=== PATIENT | female | born 1940 | race Caucasian/White ===

== ENCOUNTER 2016-05-28 14:33 | Inpatient (IN) | payer MEDICARE, BC ==
[2016-05-28] MEDS ORDERED: IPRATROPIUM-ALBUTEROL 3 ML NEB INHALATION STA (15:41)
--- NOTE | 2016-05-28 15:49 | ED ---
General Adult HPI - General Chief complaint: Shortness of Breath Stated complaint: SOB Time Seen by Provider: 05/28/16 15:40 Source: patient, RN notes reviewed, old records reviewed Mode of arrival: ambulatory Limitations: no limitations - History of Present Illness Initial comments: This is a 75-year-old female who ER for evaluation. This patient presents here for evaluation of shortness of breath cough congestion and weakness. Patient does have heart history as well as breathing issues. Patient's recent layoff travel history with prolonged flight, patient was seen by Dr. Blankenship and prescribed antibiotics and breathing treatments as well as started no help. - Related Data Home Medications Medication Instructions Recorded Confirmed Ergocalciferol [Vitamin D2] 50,000 unit PO Q14D 10/23/14 05/28/16 Levothyroxine Sodium [Synthroid] 50 mcg PO DAILY 10/23/14 05/28/16 Lisinopril-Hctz 10-12.5 mg 1 tab PO BID 10/23/14 05/28/16 [Zestoretic 10-12.5] Pioglitazone [Actos] 45 mg PO DAILY 10/23/14 05/28/16 Rosuvastatin [Crestor] 5 mg PO DAILY 10/23/14 05/28/16 ALPRAZolam [Xanax] 0.25 mg PO HS PRN 12/23/15 05/28/16 Albuterol Nebulized [Ventolin 2.5 mg INHALATION RT-Q6H PRN 12/23/15 05/28/16 Nebulized] Aspirin 81 mg PO DAILY 12/23/15 05/28/16 Budesonide [Pulmicort] 0.5 mg INHALATION RT-BID PRN 12/23/15 05/28/16 D-[place] 500 mg PO DAILY 12/23/15 05/28/16 Multivitamins, Thera [Multivitamin] 1 tab PO DAILY 12/23/15 05/28/16 Vitamin B Complex 1 cap PO DAILY 12/23/15 05/28/16 Furosemide [Lasix] 20 mg PO DAILY 05/28/16 05/28/16 Gabapentin [Neurontin] 300 mg PO HS 05/28/16 05/28/16 Sulfamethoxazole/Trimethoprim 1 each PO 05/28/16 05/28/16 [Bactrim DS 800-160 mg] predniSONE 20 mg PO DAILY 05/28/16 05/28/16 traMADol HCL [Ultram] 50 mg PO Q6HR PRN 05/28/16 05/28/16 Allergies Allergy/AdvReac Type Severity Reaction Status Date / Time Iodinated Contrast Media - Allergy Unknown Verified 05/28/16 15:54 Oral and Review of Systems ROS Statement: Those systems with pertinent positive or pertinent negative responses have been documented in the HPI. ROS Other: All systems not noted in ROS Statement are negative. Past Medical History Past Medical History: Cancer, COPD, Diabetes Mellitus, Eye Disorder, Hyperlipidemia, Hypertension, Pneumonia, Renal Disease, Sleep Apnea/CPAP/BIPAP, Thyroid Disorder Additional Past Medical History / Comment(s): has "leaky valve" hx breast cancer 1999, hx. glaucoma, History of Any Multi-Drug Resistant Organisms: None Reported Past Surgical History: Breast Surgery, Orthopedic Surgery Additional Past Surgical History / Comment(s): MASTECTOMY/TRANSFLAP/CHEMO, EYE SURGERY, ROTATOR CUFF Past Psychological History: No Psychological Hx Reported Smoking Status: Former smoker Past Alcohol Use History: None Reported Past Drug Use History: None Reported - Past Family History Mother Family Medical History: Coronary Artery Disease (CAD), Diabetes Mellitus Brother(s) Family Medical History: Cancer, Coronary Artery Disease (CAD) General Exam Limitations: no limitations General appearance: alert, in no apparent distress Head exam: Present: atraumatic, normocephalic, normal inspection Eye exam: Present: normal appearance, PERRL, EOMI. Absent: scleral icterus, conjunctival injection, periorbital swelling ENT exam: Present: normal exam, mucous membranes moist Neck exam: Present: normal inspection. Absent: tenderness, meningismus, lymphadenopathy Respiratory exam: Present: normal lung sounds bilaterally. Absent: respiratory distress, wheezes, rales, rhonchi, stridor Cardiovascular Exam: Present: regular rate, normal rhythm, normal heart sounds. Absent: systolic murmur, diastolic murmur, rubs, gallop, clicks GI/Abdominal exam: Present: soft, normal bowel sounds. Absent: distended, tenderness, guarding, rebound, rigid Extremities exam: Present: normal inspection, full ROM, normal capillary refill. Absent: tenderness, pedal edema, joint swelling, calf tenderness Back exam: Present: normal inspection Neurological exam: Present: alert, oriented X3, CN II-XII intact Psychiatric exam: Present: normal affect, normal mood Skin exam: Present: warm, dry, intact, normal color. Absent: rash Course Vital Signs 05/28/16 05/28/16 05/28/16 14:54 16:12 16:33 Temperature 98.5 F Pulse Rate 59 L 66 78 Respiratory 20 Rate Blood Pressure 147/67 O2 Sat by Pulse 97 Oximetry 05/28/16 17:44 Temperature Pulse Rate 69 Respiratory 18 Rate Blood Pressure 134/53 O2 Sat by Pulse 99 Oximetry EKG Findings - EKG Comments: EKG Findings:: EKG shows normal sinus rhythm is 69, IA 144, QRS 84, QTC 480 Medical Decision Making - Medical Decision Making 75. Female to the ER for evaluation of COPD exacerbation, patient is outpatient treatment which has failed. Current travel history. Include strep to [place], her illness started there. No known fevers, no other specific sick contacts and no recent hospitalizations - Lab Data Result diagrams: 05/28/16 17:04 05/28/16 17:04 - Radiology Data Radiology results: report reviewed (Chest x-ray), image reviewed Disposition Clinical Impression: Acute exacerbation of chronic obstructive airways disease, Failure of outpatient treatment Disposition: ADMITTED IP TO THIS HOSP Condition: Fair
[2016-05-28] MEDS ORDERED: methylPREDNISolone SOD SUCCI 125 MG/2 ML VIAL IV STA (16:57)
[2016-05-28] MEDS ORDERED: AZITHROMYCIN 500 MG in SODIUM CHLORIDE 0.9% 250 ML IVPB STA (16:58)
[2016-05-28 17:18] LABS: Basophils % (A) 0 %; CH 32.1; CHCM 32.2; Eosinophils % (A) 1 %; HCT 34.1 % (34.0-46.0); HGB 10.9 gm/dL (11.4-16.0); Luc # (Auto) 0.08; Luc % (Auto) 2; Lymphocytes # (A) 0.9 k/uL (1.0-4.8); Lymphocytes % (A) 18 %; MCH 32.1 pg (25.0-35.0); MCV 100.2 fL (80.0-100.0); Mean Platelet Volume 9.5; Monocytes # (A) 0.2 k/uL (0-1.0); Monocytes % (A) 3 %; Neutrophils # (A) 3.7 k/uL (1.3-7.7); Neutrophils % (A) 77 %; RDW 13.4 % (11.5-15.5); WBC 4.9 k/uL (3.8-10.6); WBC (Perox) 5.15
[2016-05-28 17:31] LABS: Partial Thromboplastin Time 22.6 sec (22.0-30.0); Prothrombin Time 10.3 sec (9.0-12.0)
[2016-05-28 17:35] LABS: Calcium 9.5 mg/dL (8.4-10.2); Magnesium 1.9 mg/dL (1.6-2.3); Potassium 4.4 mmol/L (3.5-5.1); Total Bilirubin 0.4 mg/dL (0.2-1.3); Total Protein 6.2 g/dL (6.3-8.2)
[2016-05-28 17:38] LABS: Creatine Kinase 80 U/L (30-135)
[2016-05-28] MEDS: SODIUM CHLORIDE 0.9% 1,000 ML IV STA ×2 (17:42→20:56)
[2016-05-28 17:51] LABS: Creatine Kinase MB 0.6 ng/mL (0.0-2.4); Troponin I <0.012 ng/mL (0.000-0.034)
--- NOTE | 2016-05-28 18:23 | XR ---
EXAMINATION TYPE: XR chest 2V DATE OF EXAM: 05/28/2016 6:07 PM COMPARISON: December 11, 2014 HISTORY: Cough and congestion with dyspnea TECHNIQUE: Frontal and lateral views of the chest are obtained. FINDINGS: There is no definite focal air space opacity. There is no pleural effusion or pneumothorax . The cardiac silhouette size is mildly enlarged. The osseous structures are intact. IMPRESSION: No definite acute process.
[2016-05-28 20:50] LABS: Glucose,Whole Blood 199 mg/dL (75-99)
[2016-05-28] MEDS: methylPREDNISolone SOD SUCCI 125 MG/2 ML VIAL IV SCH (20:54)
[2016-05-28] MEDS: INSULIN LISPRO (humaLOG) 300 UNIT/3 ML VIAL SQ SCH (20:57)
[2016-05-28] MEDS: SODIUM CHLORIDE 0.9% 1,000 ML IV SCH (21:00)
[2016-05-28] MEDS: IPRATROPIUM-ALBUTEROL 3 ML NEB INHALATION SCH (21:43)
--- NOTE | 2016-05-28 22:02 | US ---
EXAMINATION TYPE: US VENOUS DOPPLER DUPLEX LE BI DATE OF EXAM: 05/28/2016 6:01 PM COMPARISON: No previous CLINICAL HISTORY: dvt. Occasional bilateral leg pain SIDE PERFORMED: Bilateral VESSELS IMAGED: External Iliac Vein (EIV) Common Femoral Vein Deep Femoral Vein Greater Saphenous Vein * Femoral Vein Popliteal Vein Small Saphenous Vein * Proximal Calf Veins (* superficial vessels) IMPRESSION: RIGHT LOWER EXTREMITY: NEGATIVE FOR DVT. LEFT LOWER EXTREMITY: NEGATIVE FOR DVT.
[2016-05-28] MEDS: ALPRAZolam 0.25 MG TAB PO PRN (22:23)
[2016-05-28] MEDS: GABAPENTIN 300 MG CAP PO SCH (22:24)
[2016-05-28] MEDS: LISINOPRIL-HCTZ 10-12.5 MG 1 EACH TAB PO SCH (22:24)
[2016-05-29] MEDS: methylPREDNISolone SOD SUCCI 125 MG/2 ML VIAL IV SCH ×4 (01:17→17:46)
[2016-05-29] MEDS: LEVOTHYROXINE 50 MCG TAB PO SCH (06:01)
[2016-05-29] MEDS: SODIUM CHLORIDE 0.9% 1,000 ML IV SCH ×2 (06:06→13:03)
[2016-05-29 07:49] LABS: Glucose,Whole Blood 168 mg/dL (75-99)
[2016-05-29] MEDS: INSULIN LISPRO (humaLOG) 300 UNIT/3 ML VIAL SQ SCH ×4 (08:08→21:03)
[2016-05-29] MEDS: LISINOPRIL-HCTZ 10-12.5 MG 1 EACH TAB PO SCH ×2 (08:08→21:10)
[2016-05-29] MEDS: AZITHROMYCIN 500 MG in SODIUM CHLORIDE 0.9% 250 ML IVPB SCH (08:09)
[2016-05-29] MEDS: ATORVASTATIN 10 MG TAB PO SCH (08:09)
[2016-05-29] MEDS: FUROSEMIDE 20 MG TAB PO SCH (08:09)
[2016-05-29] MEDS: PIOGLITAZONE 45 MG TAB PO SCH (08:09)
[2016-05-29] MEDS: ASPIRIN 81 MG CHEW PO SCH (08:09)
[2016-05-29] MEDS: IPRATROPIUM-ALBUTEROL 3 ML NEB INHALATION SCH ×4 (08:24→19:18)
[2016-05-29] MEDS ORDERED: D MANNOSE 500 MG PO SCH (09:00)
[2016-05-29] MEDS ORDERED: ENOXAPARIN 40 MG/0.4 ML SYRINGE SQ SCH (09:00)
[2016-05-29 11:50] LABS: Glucose,Whole Blood 143 mg/dL (75-99)
[2016-05-29] MEDS: MULTIVITAMINS, THERA 1 EACH TAB PO SCH (12:16)
[2016-05-29] MEDS: ACETAMINOPHEN TAB 325 MG TAB PO PRN ×2 (12:58→20:59)
--- NOTE | 2016-05-29 15:14 | CONS ---
DATE OF CONSULTATION: Elayne Raza is a 75-year-old female who presented to the ER at [facility] with increasing shortness of breath. She has been doing well up until a week ago when she was down in [place]. She developed a cough with congestion and wheezing. She also had weakness. She had no clear fever or chills and is bringing up yellow phlegm. She did not have any chest pain except when she coughed. She had a flight coming back with one stop and did not have any change in her shortness of breath during the flight. She subsequently came back to [place] and continued to get worse. She did not improve with treatment as an outpatient. She subsequently came into the ER. Her past medical history is positive for COPD, diabetes mellitus, hyperlipidemia, breast cancer, history of a leaky valve, history of sleep apnea for which she is on CPAP, history of renal disease, pneumonia, thyroid disorder, glaucoma, mastectomy, chemotherapy, eye surgery and rotator cuff surgery. FAMILY HISTORY: Positive for coronary artery disease, and diabetes mellitus in her mother. Brother had a history of cancer and coronary artery disease. Medications prior to admission were: 1. Ergocalciferol. 2. Vitamin B complex. 3. Multivitamin. 4. Aspirin. 5. ( ). 6. Pulmicort. 7. Albuterol. 8. Xanax. 9. Ultram. 10. Lasix. 11. Actos. 12. Lisinopril. 13. Montelukast. 14. Gabapentin. 15. Rosuvastatin. 16. Synthroid. 17. Prednisone. 18. She is also on Bactrim. 19. I do not believe she had actually started on Pulmicort. She had only been on albuterol. SHE IS ALLERGIC TO IODINATED CONTRAST MEDIA. On physical examination, heart rate is 52, respiratory rate 20, pulse rate 84, temperature 97.5, blood pressure 142/65, O2 sat on room air is 95%. HEENT reveals pupils are equal. Chest reveals prolonged expiration, bilateral expiratory wheeze. Cardiovascular system reveals S1 and S2. ABDOMEN: Soft. There is trace pedal edema. White count is 4.9, hemoglobin 10.9, MCV 100.2, d-dimer 1.34. Sodium 140, potassium 4.4, chloride 107, bicarb 22, BUN 38, creatinine of 1.3, glucose of 163, total protein of 6.0. Albumin of 3.9. Venous duplex study done on 05/28/2016 showed there was negative for DVT in both lower extremities. Chest x-ray showed no definitive acute process. IMPRESSION: Severe asthma with acute exacerbation, cannot rule out secondary bacterial infection. At this point in time, keep the patient on a azithromycin, IV steroids. Continue bronchodilators. Add aerosolized steroids and Montelukast to her regimen. Continue her on insulin sliding scale as well as lactulose. Increase her activity level. Check peak flows on her. Depending on how she does we shall make further changes to her care. I would like to thank you for allowing me to participate in her care.
[2016-05-29 17:04] LABS: Glucose,Whole Blood 179 mg/dL (75-99)
[2016-05-29] MEDS: BENZOCAINE/MENTHOL LOZENG 1 EACH LOZENGE MUCOUS MEM PRN ×2 (17:44→21:04)
[2016-05-29] MEDS: BUDESONIDE 0.5 MG/2 ML NEBU INHALATION SCH (19:18)
[2016-05-29 20:50] LABS: Glucose,Whole Blood 219 mg/dL (75-99)
[2016-05-29] MEDS: ALPRAZolam 0.25 MG TAB PO PRN (21:00)
[2016-05-29] MEDS: GABAPENTIN 300 MG CAP PO SCH (21:01)
[2016-05-29] MEDS: HEPARIN SODIUM,PORCINE 5,000 UNIT/ML 1 ML VIAL SQ SCH (21:07)
--- NOTE | 2016-05-29 21:09 | HP ---
DATE OF ADMISSION: Difficulty in breathing. HISTORY OF PRESENT ILLNESS: Ms. Raza is a 75-year-old female with past medical history of COPD, diabetes mellitus, hyperlipidemia, breast cancer, sleep apnea, thyroid disorder coming to the hospital with a chief complaint of difficulty in breathing. Patient states that she has been having cough for the past couple of weeks and also that she could hear herself wheezing. Patient complaints of cough, has been trying to cough up, but not able to bring up a lot of sputum and she could hear herself wheezing and also was having difficulty on taking a flight of stairs. Patient had a recent travel to [place], but she did not have any changes in her shortness of breath during her flight. Patient did see a physician and was started on treatment, but did not show improvement and so she came into the ER for further evaluation. REVIEW OF SYSTEMS: CONSTITUTIONAL: Denies any fever, chills or rigors. RESPIRATORY: As per HPI. CARDIAC: No chest pain or palpitations. GI: No abdominal pain, nausea, vomiting or diarrhea. : No dysuria or hematuria. ENDOCRINE: Positive for diabetes mellitus, hyperlipidemia. DERMATOLOGICAL: Negative. PSYCHIATRIC: Negative. HEMATOLOGIC: Negative. All 13 review of systems are done and are negative except for ones mentioned in the HPI. PAST MEDICAL HISTORY: Significant for COPD, diabetes mellitus, hyperlipidemia, history of breast cancer, status post mastectomy and chemotherapy and sleep apnea on CPAP machine and thyroid disorder. ALLERGIES TO IODINE, ORAL AND IV. Patient's home medications: 1. Lisinopril/hydrochlorothiazide 10/12.5, 1 tablet p.o. b.i.d. 2. Levothyroxine 50 mcg p.o. daily. 3. Vitamin D2 50,000 units p.o. daily. 4. Crestor 10 mg 1/2 tablet p.o. daily. 5. ( ) mg p.o. daily. 6. Multivitamin 1 tablet p.o. daily. 7. Aspirin 81 mg p.o. daily. 8. Pulmicort b.i.d. 9. Albuterol p.r.n. 10. Xanax 0.25 mg p.o. q.h.s. p.r.n. 11. Vitamin B complex. 12. ( ) 20 mg p.o. daily. 13. Bactrim. 14. Lasix 20 mg p.o. daily. 15. Gabapentin 300 mg p.o. q.h.s. 16. Tramadol 50 mg p.o. every 6 hours. PAST SURGICAL HISTORY: Mastectomy and orthopedic surgery. SOCIAL HISTORY: He smoked for about 5 to 6 years. Occasional alcohol use. FAMILY HISTORY: Positive for coronary artery disease, diabetes mellitus. On examination, patient's vital signs: Temperature 97.4, heart rate 57, respiratory rate 20, blood pressure 117/54, saturating at 97% on room air. GENERAL: Patient appears to be no acute distress. HEAD: Atraumatic, nontraumatic. EYES: Pupils round and reactive to light. No pallor. No icterus. NECK: No JVD. No thyromegaly. LUNGS: Bilateral wheezes positive. No rhonchi. No crackles. CARDIOVASCULAR: S1, S2 heard. GI: Abdomen soft, nontender. Bowel sounds positive. EXTREMITIES: No edema. No cyanosis. No clubbing. Peripheral pulses felt. CHEF HEAD: Alert, awake and oriented x3. No focal deficits. PSYCHIATRIC: Appropriate mood and affect. SKIN: No rash. MUSCULOSKELETAL: No joint swelling or deformity. PATIENT LABS: White count of 4.9, hemoglobin 10.9, platelets 135. Sodium 140, potassium 4.4, chloride 107, bicarb 22, BUN 38, creatinine 1.30. HbA1c of 6. ASSESSMENT AND PLAN: 1. Acute exacerbation of chronic obstructive pulmonary disease, failed outpatient treatment. Continue with steroid breathing treatments and azithromycin. 2. History of diabetes mellitus, Hemoglobin A1c of 7. 3. Dyslipidemia. 4. Hypertension. 5. Osteoarthritis. 6. History of breast cancer, status post mastectomy and chemotherapy. 7. Gastroesophageal reflux disease. 8. History of diverticulosis. 9. History of sleep apnea. No continuous positive airway pressure machine. 10. Hypothyroidism. PLAN: Plan is to continue with the current medication regimen as above and resume her home medications and further recommendations to follow depending on the progress of the patient.
[2016-05-29] MEDS: MONTELUKAST 10 MG TAB PO SCH (21:59)
[2016-05-30] MEDS: methylPREDNISolone SOD SUCCI 125 MG/2 ML VIAL IV SCH ×4 (00:25→18:43)
[2016-05-30] MEDS: HYDROcodone/APAP 10-325MG 1 EACH TAB PO PRN ×3 (00:25→21:59)
[2016-05-30] MEDS: BENZOCAINE/MENTHOL LOZENG 1 EACH LOZENGE MUCOUS MEM PRN ×3 (00:26→22:59)
[2016-05-30] MEDS: CHLORPHEN-HYDROcod 8-10mg/5ml 5 ML ORAL.SYRG PO SCH ×2 (02:30→16:19)
[2016-05-30] MEDS: LEVOTHYROXINE 50 MCG TAB PO SCH (06:23)
[2016-05-30 07:24] LABS: Basophils % (A) 0 %; CH 32.1; CHCM 32.7; Eosinophils # (A) 0.1 k/uL (0-0.7); Eosinophils % (A) 1 %; HCT 30.6 % (34.0-46.0); HDW 2.36; HGB 9.8 gm/dL (11.4-16.0); Luc # (Auto) 0.08; Luc % (Auto) 1; Lymphocytes # (A) 0.7 k/uL (1.0-4.8); Lymphocytes % (A) 8 %; MCH 31.8 pg (25.0-35.0); MCHC 32.2 g/dL (31.0-37.0); Mean Platelet Volume 8.7; Monocytes # (A) 0.4 k/uL (0-1.0); Monocytes % (A) 5 %; Neutrophils # (A) 7.7 k/uL (1.3-7.7); Neutrophils % (A) 85 %; RBC 3.09 m/uL (3.80-5.40); RDW 13.6 % (11.5-15.5); WBC (Perox) 10.08
[2016-05-30] MEDS: IPRATROPIUM-ALBUTEROL 3 ML NEB INHALATION SCH ×4 (07:37→19:40)
[2016-05-30] MEDS: BUDESONIDE 0.5 MG/2 ML NEBU INHALATION SCH ×2 (07:38→19:40)
[2016-05-30 07:39] LABS: Glucose,Whole Blood 190 mg/dL (75-99)
[2016-05-30] MEDS: INSULIN LISPRO (humaLOG) 300 UNIT/3 ML VIAL SQ SCH ×4 (08:07→20:04)
[2016-05-30] MEDS: HEPARIN SODIUM,PORCINE 5,000 UNIT/ML 1 ML VIAL SQ SCH ×2 (08:07→20:02)
[2016-05-30] MEDS: ASPIRIN 81 MG CHEW PO SCH (08:08)
[2016-05-30] MEDS: LISINOPRIL-HCTZ 10-12.5 MG 1 EACH TAB PO SCH ×2 (08:08→20:02)
[2016-05-30] MEDS: FUROSEMIDE 20 MG TAB PO SCH (08:08)
[2016-05-30] MEDS: ATORVASTATIN 10 MG TAB PO SCH (08:09)
[2016-05-30] MEDS: PIOGLITAZONE 45 MG TAB PO SCH (08:09)
[2016-05-30] MEDS: AZITHROMYCIN 500 MG in SODIUM CHLORIDE 0.9% 250 ML IVPB SCH (08:12)
[2016-05-30 08:25] LABS: Potassium 5.2 mmol/L (3.5-5.1)
[2016-05-30] MEDS: SODIUM CHLORIDE 0.9% 1,000 ML IV SCH ×3 (10:27→20:52)
[2016-05-30 12:14] LABS: Glucose,Whole Blood 256 mg/dL (75-99)
[2016-05-30] MEDS: MULTIVITAMINS, THERA 1 EACH TAB PO SCH (13:39)
[2016-05-30 17:22] LABS: Glucose,Whole Blood 86 mg/dL (75-99)
--- NOTE | 2016-05-30 19:20 | XR ---
EXAMINATION TYPE: XR chest 2V DATE OF EXAM: 05/30/2016 6:53 PM COMPARISON: 05/28/2016 HISTORY: 75-year-old female increasing shortness of breath and cough TECHNIQUE: Frontal and lateral views FINDINGS: Heart is borderline enlarged. Mild elongation of the thoracic aorta. Diffuse interstitial prominence similar to prior exam. There is mild hyperinflation. No consolidation or pleural effusion seen. Surgi isha clips at the left axilla. IMPRESSION: Borderline heart size and diffuse interstitial prominence similar to prior. Correlate for mild CHF, c hronic bronchitis, or atypical pneumonias.
--- NOTE | 2016-05-30 19:54 | NM ---
EXAMINATION TYPE: NM pul vent and perfuse DATE OF EXAM: 05/30/2016 7:47 PM COMPARISON: Correlation chest radiograph same day HISTORY: 75-year-old female increasing shortness of breath TECHNIQUE: Utilizing inhalation of 65.8 mCi Tc 99m DTPA aerosol and intravenous injection of 5.3 mCi of Tc 99m MAA, ventilation and perfusion images are acquired post injection in multiple projections. FINDINGS: There is no mismatched perfusion defect. No isolated ventilation defect. IMPRESSION: Very low probability for pulmonary embolus.
[2016-05-30] MEDS: MONTELUKAST 10 MG TAB PO SCH (20:02)
[2016-05-30] MEDS: GABAPENTIN 300 MG CAP PO SCH (20:02)
[2016-05-30] MEDS: POLYETHYLENE GLYCOL 3350 17 GM POWD.PACK PO SCH (20:12)
[2016-05-30 20:24] LABS: Glucose,Whole Blood 138 mg/dL (75-99)
[2016-05-30] MEDS ORDERED: PSYLLIUM HUSK 100% 6 GM PACKET PO SCH (21:00)
[2016-05-30] MEDS: PROMETHAZ-COD 6.25-10 MG/5 ML 5 ML CUP PO PRN (21:29)
[2016-05-30] MEDS: ALPRAZolam 0.25 MG TAB PO PRN (21:59)
[2016-05-30] MEDS ORDERED: LEVOFLOXACIN 500MG-D5W PMX 500 MG in DEXTROSE/WATER 1 100ML.BAG IVPB SCH (23:00)
[2016-05-31] MEDS: methylPREDNISolone SOD SUCCI 125 MG/2 ML VIAL IV SCH ×5 (00:13→23:20)
[2016-05-31] MEDS: CHLORPHEN-HYDROcod 8-10mg/5ml 5 ML ORAL.SYRG PO SCH ×2 (02:01→15:09)
[2016-05-31] MEDS: LEVOTHYROXINE 50 MCG TAB PO SCH (06:02)
[2016-05-31] MEDS: HYDROcodone/APAP 10-325MG 1 EACH TAB PO PRN ×3 (06:02→17:48)
[2016-05-31 06:56] LABS: Glucose,Whole Blood 173 mg/dL (75-99)
[2016-05-31 07:01] LABS: Basophils % (A) 0 %; CHCM 31.8; Eosinophils % (A) 0 %; HCT 31.6 % (34.0-46.0); HDW 2.41; HGB 9.8 gm/dL (11.4-16.0); Luc % (Auto) 1; Lymphocytes # (A) 0.7 k/uL (1.0-4.8); Lymphocytes % (A) 7 %; MCH 31.2 pg (25.0-35.0); MCHC 30.9 g/dL (31.0-37.0); MCV 101.2 fL (80.0-100.0); Macrocytosis Slight; Mean Platelet Volume 8.6; Monocytes # (A) 0.3 k/uL (0-1.0); Monocytes % (A) 3 %; Neutrophils % (A) 88 %; RBC 3.13 m/uL (3.80-5.40); RDW 13.4 % (11.5-15.5); WBC (Perox) 9.61
[2016-05-31 07:32] LABS: Calcium 8.9 mg/dL (8.4-10.2); Potassium 5.1 mmol/L (3.5-5.1)
[2016-05-31] MEDS: IPRATROPIUM-ALBUTEROL 3 ML NEB INHALATION SCH ×4 (07:54→19:39)
[2016-05-31] MEDS: BUDESONIDE 0.5 MG/2 ML NEBU INHALATION SCH ×2 (07:54→19:39)
[2016-05-31] MEDS: INSULIN LISPRO (humaLOG) 300 UNIT/3 ML VIAL SQ SCH ×4 (07:57→21:13)
[2016-05-31] MEDS: ASPIRIN 81 MG CHEW PO SCH (07:59)
[2016-05-31] MEDS: HEPARIN SODIUM,PORCINE 5,000 UNIT/ML 1 ML VIAL SQ SCH ×3 (08:00→23:21)
[2016-05-31] MEDS: FUROSEMIDE 20 MG TAB PO SCH (08:00)
[2016-05-31] MEDS: ATORVASTATIN 10 MG TAB PO SCH (08:00)
[2016-05-31] MEDS: PIOGLITAZONE 45 MG TAB PO SCH (08:00)
[2016-05-31] MEDS: LISINOPRIL-HCTZ 10-12.5 MG 1 EACH TAB PO SCH ×2 (08:00→21:14)
[2016-05-31] MEDS: BENZOCAINE/MENTHOL LOZENG 1 EACH LOZENGE MUCOUS MEM PRN ×4 (08:06→23:51)
--- NOTE | 2016-05-31 10:23 | PN ---
DATE OF SERVICE: 05/30/2016 She has been coughing. She is, however, less short of breath. On physical examination, respiratory rate 16, pulse rate of 63, temperature 96.9, blood pressure 119/55, O2 sat on room air is 96%. HEENT is unremarkable. Chest reveals expiratory wheeze only on forced expiration. Cardiovascular system reveals an S1, S2. Abdomen is soft. There is trace edema. Sodium is 138, potassium 5.2, chloride 108, bicarb 29, BUN 45, creatinine 1.35, white count 9, hemoglobin 9.8. IMPRESSION: 1. Severe asthma with acute exacerbation. 2. Obesity. 3. Obstructive sleep apnea. Continue CPAP. Continue bronchodilators, aerosolized steroids, IV steroids and antibiotics. Increase her activity level.
[2016-05-31 12:09] LABS: Glucose,Whole Blood 213 mg/dL (75-99)
--- NOTE | 2016-05-31 12:13 | P.PN ---
Subjective Principal diagnosis: Acute exacerbation of asthma Patient seen and examined. Patient states that she does not feel like her breathing is getting any better. She continues to have a dry nonproductive cough. She is complaining of pain all over. She has not had any fevers or chills. Objective - Vital Signs Vital signs: Vital Signs Temp 97.4 F L 05/31/16 07:00 Pulse 68 05/31/16 11:46 Resp 16 05/31/16 08:00 BP 158/72 05/31/16 07:00 Pulse Ox 95 05/31/16 07:55 Intake & Output 05/30/16 05/31/16 05/31/16 18:59 06:59 18:59 Intake Total 1560 Balance 1560 Intake: IV 280 Sodium Chloride 0.9% 1, 280 000 ml @ 100 mls/hr IV . Q10H ART Rx#:[id number] Intake, IV Titration 100 Amount Levofloxacin 500Mg-D5w 100 Pmx 500 mg In Dextrose/ Water 1 100ml.bag @ 100 mls/hr IVPB HS ART Rx#: [id number] Oral 1180 Other: Voiding Method Toilet Toilet Toilet # Voids 2 1 - Exam Gen.: Patient is alert and oriented 3, no acute distress Cardiovascular: Regular rate and rhythm, S1/S2 Lungs: Coarse breath sounds bilaterally Abdomen: Soft nontender nondistended positive bowel sounds Extremities: No edema - Labs CBC & Chem 7: 05/31/16 06:30 05/31/16 06:30 Labs: Abnormal Lab Results - Last 24 Hours (Table) 05/30/16 05/30/16 05/31/16 Range/Units 12:09 20:04 06:30 RBC 3.13 L (3.80-5.40) m/uL Hgb 9.8 L (11.4-16.0) gm/dL Hct 31.6 L (34.0-46.0) % MCV 101.2 H (80.0-100.0) fL MCHC 30.9 L (31.0-37.0) g/dL Plt Count 144 L (150-450) k/uL Neutrophils # 8.0 H (1.3-7.7) k/uL Lymphocytes # 0.7 L (1.0-4.8) k/uL Chloride (98-107) mmol/L Carbon Dioxide (22-30) mmol/L BUN (7-17) mg/dL Creatinine (0.52-1.04) mg/dL Glucose (74-99) mg/dL POC Glucose (mg/dL) 256 H 138 H (75-99) mg/dL 05/31/16 05/31/16 Range/Units 06:30 06:55 RBC (3.80-5.40) m/uL Hgb (11.4-16.0) gm/dL Hct (34.0-46.0) % MCV (80.0-100.0) fL MCHC (31.0-37.0) g/dL Plt Count (150-450) k/uL Neutrophils # (1.3-7.7) k/uL Lymphocytes # (1.0-4.8) k/uL Chloride 108 H (98-107) mmol/L Carbon Dioxide 21 L (22-30) mmol/L BUN 49 H (7-17) mg/dL Creatinine 1.27 H (0.52-1.04) mg/dL Glucose 176 H (74-99) mg/dL POC Glucose (mg/dL) 173 H (75-99) mg/dL Assessment and Plan Plan: Acute exacerbation of severe persistent asthma Obesity Obstructive sleep apnea compliant with CPAP Diabetes mellitus type 2 Dyslipidemia History of breast cancer Hypertension Osteoarthritis GERD O2 to maintain saturation greater than equal to 88% Bronchodilators and Pulmicort Steroid taper Monitor labs Antibiotics: Levaquin Singulair Will start Mucinex Check echocardiogram Will increase Lasix to 40 mg IV daily Repeat chest x-ray in the a.m. Check sputum culture Check influenza and atypical pneumonia Incentive spirometry and pulmonary hygiene GI and DVT prophylaxis
[2016-05-31] MEDS: MULTIVITAMINS, THERA 1 EACH TAB PO SCH (13:14)
[2016-05-31] MEDS: FUROSEMIDE 10 MG/ML 4 ML VIAL IV SCH (13:18)
--- NOTE | 2016-05-31 14:37 | PN ---
Ms. Raza is a 75-year-old female with a past medical history of chronic obstructive pulmonary disease, hyperlipidemia, breast cancer, sleep apnea, thyroid disorder admitted to the hospital with a chief complaint of difficulty in breathing. The patient has been having cough for the past couple of weeks and also has been wheezing. The patient is currently being treated for COPD exacerbation as she failed outpatient treatment. REVIEW OF SYSTEMS: CONSTITUTIONAL: She denies having any fevers, chills, or rigors. RESPIRATORY: States that her breathing has worsened. She still complains of cough. CARDIAC: No chest pain. No palpitations. GI: Denies having any abdominal pain, nausea, vomiting or diarrhea. : No dysuria or hematuria. Patient's medications have been reviewed. She is on Tylenol, [place], Duoneb, Xanax, aspirin, Lipitor, Zithromax, Pulmicort, Lasix, Gabapentin, Lisinopril, hydrochlorothiazide, heparin, Levothyroxine, Solu-Medrol, Singulair, Actos. On examination, patient's vital signs are temperature 97.4, heart rate is 67, respiratory rate 16, blood pressure 126/60, saturating at 94% on room air. GENERAL EXAMINATION: Patient appears to be in no acute distress. HEAD: Atraumatic, normocephalic. EYES: Pupils, round, and reactive to light. No pallor. No icterus. NECK: No JVD. No thyromegaly. CARDIOVASCULAR: S1, S2 heard. LUNGS: Patient has bilateral coarse breath sounds with mild wheezes. No crackles. GI: Abdomen is soft, nontender. Bowel sounds positive. EXTREMITIES: No edema. No cyanosis, no clubbing. Peripheral pulses are felt. [employer]ATE: Alert, awake and oriented times 3. No focal deficits. PSYCHIATRIC: Appropriate mood and affect. SKIN: No rash. MUSCULOSKELETAL: No joint swelling or deformity. Patient's labs: White count of 9, hemoglobin is 9.8, platelets of 142. Sodium 138, potassium 5.2, chloride 108, bicarb 21, BUN 45, creatinine is 1.35. ASSESSMENT AND PLAN: 1. Acute exacerbation of chronic obstructive pulmonary disease. Failed outpatient treatment. Continue with breathing treatments. We will change her azithromycin to levofloxacin. 2. History of diabetes mellitus, Hemoglobin A1c of 7. 3. Dyslipidemia. 4. Hypertension. 5. Osteoarthritis. 6. History of breast cancer, status post mastectomy and chemotherapy. 7. Chronic kidney disease, stage III. 8. Gastroesophageal reflux disease. 9. History of diverticulosis. 10. History of sleep apnea. 11. Hypothyroidism. PLAN: The patient's breathing has worsened overnight with breathing treatments and IV steroids so we will change the antibiotics from azithromycin to levofloxacin. Repeat x-ray shows no new changes and a VQ scan was also obtained showing low probability of PE. We will continue with the rest of her medication regimen and further recommendations to follow depending on the progress of the patient.
[2016-05-31 17:29] LABS: Glucose,Whole Blood 143 mg/dL (75-99)
[2016-05-31 20:34] LABS: Glucose,Whole Blood 240 mg/dL (75-99)
[2016-05-31] MEDS: POLYETHYLENE GLYCOL 3350 17 GM POWD.PACK PO SCH (21:13)
[2016-05-31] MEDS: MONTELUKAST 10 MG TAB PO SCH (21:14)
[2016-05-31] MEDS: guaiFENesin 600 MG TABLET.ER PO SCH (21:14)
[2016-05-31] MEDS: LEVOFLOXACIN 250 MG TAB PO SCH (21:14)
[2016-05-31] MEDS: GABAPENTIN 300 MG CAP PO SCH (21:14)
[2016-06-01] MEDS: CHLORPHEN-HYDROcod 8-10mg/5ml 5 ML ORAL.SYRG PO SCH ×2 (01:00→14:21)
[2016-06-01] MEDS: LEVOTHYROXINE 50 MCG TAB PO SCH (06:09)
[2016-06-01] MEDS: methylPREDNISolone SOD SUCCI 125 MG/2 ML VIAL IV SCH ×3 (06:09→20:22)
[2016-06-01 07:43] LABS: Glucose,Whole Blood 137 mg/dL (75-99)
[2016-06-01] MEDS: BUDESONIDE 0.5 MG/2 ML NEBU INHALATION SCH (08:20)
[2016-06-01] MEDS: IPRATROPIUM-ALBUTEROL 3 ML NEB INHALATION SCH ×4 (08:20→19:47)
--- NOTE | 2016-06-01 08:35 | PN ---
DATE OF SERVICE: 05/31/2016 INTERVAL HISTORY: Ms. Raza is a 75 with a past medical history of COPD, hypertension, and breast cancer, sleep apnea, thyroid disorder admitted o the hospital with chief complaint of difficulty in breathing. Patient was having cough for the past couple of weeks and also has been wheezing. She is currently being treated with antibiotics, IV steroids and breathing treatments. The patient is showing very slow progress. REVIEW OF SYSTEMS: CONSTITUTIONAL: She denies having fever, chills or rigors. RESPIRATORY: States that she has difficulty in breathing, still the same. CARDIAC: No chest pain or palpitation. GI: No abdominal pain, nausea, vomiting or diarrhea. : No dysuria or hematuria. Patient's medications have been reviewed. On examination, patient's vital signs: Temperature 97.4, heart rate 82, respiratory rate 17, blood pressure 158/65, saturating at 95% on room air. GENERAL EXAMINATION: Obese female sitting up in the bed, appears to be in no acute distress. HEAD: Atraumatic, normocephalic. EYES: Pupils round and reactive to light. No pallor. No icterus. NECK: No JVD. No thyromegaly. CARDIOVASCULAR: S1, S2 heard. LUNGS: Coarse breath sounds bilaterally. Wheezing seems to be improved from yesterday. No crackles. GI: Abdomen is soft, nontender. Bowel sounds positive. EXTREMITIES: No edema. No cyanosis, no clubbing. Peripheral pulses are felt. She is alert, awake, oriented x3. No focal deficits. PSYCHIATRIC: Appropriate mood and affect. SKIN: No rash. MUSCULOSKELETAL: No joint swelling or deformity. Patient's labs: White count of 9, hemoglobin 9.8, platelets of 144, sodium 139, potassium 5.1, chloride 108, bicarb 21, BUN 49, creatinine 1.27. ASSESSMENT AND PLAN: 1. Acute exacerbation of chronic obstructive pulmonary disease. Failed outpatient treatment. Continue with breathing treatments, antibiotics and IV steroids. 2. History of type 2 diabetes mellitus. Hemoglobin A1c is 7. 3. Dyslipidemia. 4. Hypertension. 5. Osteoarthritis. 6. History of breast cancer, status post mastectomy and chemotherapy. 7. Chronic kidney disease, stage II. 8. Gastroesophageal reflux disease. 9. History of diverticulosis. 10. History of sleep apnea. 11. Hypothyroidism. PLAN: The plan is to continue the medication regimen as above. Patient also had a VQ scan that was showing low probability of PE and patient showing very slow improvement in her symptoms. Pulmonary on board and following the patient. Further recommendations to follow depending on the progress of the patient.
--- NOTE | 2016-06-01 08:57 | XR ---
EXAMINATION TYPE: XR chest 2V DATE OF EXAM: 06/01/2016 7:12 AM COMPARISON: 05/30/2016 HISTORY: Shortness of breath cough congestion FINDINGS: Postoperative change overlying the left axilla. Heart is enlarged. There is a small left pleural effu dyan. Biapical pleural thickening. Arthropathy of the shoulders and degenerative change of the spine. Coarsened interstitium is stable. IMPRESSION: 1. Left basilar infiltrate and small effusion 2. Correlate for chronic interstitial lung disease or venous congestion
--- NOTE | 2016-06-01 10:30 | ECHOF ---
Referral Reason:CHF MEASUREMENTS -------- HEIGHT: 170.2 cm WEIGHT: 110.2 kg BP: 158/72 RVIDd: 3.3 cm (< 3.3) IVSd: 1.2 cm (0.6 - 1.1) LVIDd: 4.9 cm (3.9 - 5.3) LVPWd: 1.2 cm (0.6 - 1.1) IVSs: 1.7 cm LVIDs: 3.6 cm LVPWs: 1.6 cm LA Diam: 3.7 cm (2.7 - 3.8) LAESV Index (A-L): 22.76 ml/m Ao Diam: 3.0 cm (2.0 - 3.7) AV Cusp: 2.2 cm (1.5 - 2.6) LA Diam: 3.6 cm (2.7 - 3.8) MV EXCURSION: 16.486 mm (> 18.000) MV EF SLOPE: 106 mm/s (70 - 150) EPSS: 0.8 cm MV E Mark: 1.28 m/s MV DecT: 209 ms MV A Mark: 0.96 m/s MV E/A Ratio: 1.33 RAP: 5.00 mmHg RVSP: 36.14 mmHg FINDINGS -------- Sinus rhythm. This was a technically adequate study. There is borderline concentric left ventricular hypertrophy. Overall left ventricular systolic function is normal with, an EF between 55 - 60 %. The right ventricle is normal in size. Normal LA size by volume 22+/-6 ml/m2. The right atrium is normal in size. 1.5mg of Definity was utilized for enhancement of images Aortic valve is trileaflet and is mildly thickened. Mild mitral annular calcification present. Mild mitral regurgitation is present. Mild tricuspid regurgitation present. There is mild pulmonary hypertension. The right ventricular systolic pressure, as measured by Doppler, is 36.14mmHg. The aortic root size is normal. The inferior vena cava is mildly dilated. Echo free space may represent effusion or a pericardial fat pad. CONCLUSIONS -------- 1. Sinus rhythm. 2. Mild mitral annular calcification present. 3. Mild mitral regurgitation is present. 4. Mild tricuspid regurgitation present. 5. There is mild pulmonary hypertension. 6. The right ventricular systolic pressure, as measured by Doppler, is 36.14mmHg. 7. The aortic root size is normal. 8. Echo free space may represent effusion or a pericardial fat pad. 9. This was a technically adequate study. 10. There is borderline concentric left ventricular hypertrophy. 11. Overall left ventricular systolic function is normal with, an EF between 55 - 60 %. 12. The right ventricle is normal in size. 13. Normal LA size by volume 22+/-6 ml/m2. 14. The right atrium is normal in size. 15. 1.5mg of Definity was utilized for enhancement of images 16. Aortic valve is trileaflet and is mildly thickened. ORNAMENTAL IRON WORKER: Barbara Stokes RDCS
[2016-06-01] MEDS: HEPARIN SODIUM,PORCINE 5,000 UNIT/ML 1 ML VIAL SQ SCH ×2 (10:46→18:21)
[2016-06-01] MEDS: INSULIN LISPRO (humaLOG) 300 UNIT/3 ML VIAL SQ SCH ×4 (10:46→20:22)
[2016-06-01] MEDS: ASPIRIN 81 MG CHEW PO SCH (10:48)
[2016-06-01] MEDS: FUROSEMIDE 10 MG/ML 4 ML VIAL IV SCH (10:48)
[2016-06-01] MEDS: ATORVASTATIN 10 MG TAB PO SCH (10:48)
[2016-06-01] MEDS: PIOGLITAZONE 45 MG TAB PO SCH (10:49)
[2016-06-01] MEDS: LISINOPRIL-HCTZ 10-12.5 MG 1 EACH TAB PO SCH ×2 (10:49→20:21)
[2016-06-01] MEDS: guaiFENesin 600 MG TABLET.ER PO SCH ×2 (10:49→20:21)
[2016-06-01] MEDS: BENZOCAINE/MENTHOL LOZENG 1 EACH LOZENGE MUCOUS MEM PRN (10:56)
[2016-06-01 11:03] LABS: Glucose,Whole Blood 274 mg/dL (75-99)
[2016-06-01 11:32] LABS: Potassium 4.6 mmol/L (3.5-5.1)
[2016-06-01] MEDS: MULTIVITAMINS, THERA 1 EACH TAB PO SCH (12:36)
[2016-06-01 17:14] LABS: Glucose,Whole Blood 107 mg/dL (75-99)
--- NOTE | 2016-06-01 17:19 | P.PN ---
Subjective Principal diagnosis: AE Asthma Patient seen and examined. Patient states she is not feeling much better today. She is still wheezing and coughing. She is c/o pain with cough. She does not feel ready to go home. Objective - Vital Signs Vital signs: Vital Signs Temp 97.7 F 06/01/16 14:15 Pulse 81 06/01/16 14:15 Resp 18 06/01/16 14:15 BP 113/51 06/01/16 14:15 Pulse Ox 92 L 06/01/16 14:15 Intake & Output 05/31/16 06/01/16 06/01/16 18:59 06:59 18:59 Intake Total 240 1260 Balance 240 1260 Intake: Oral 240 1260 Other: Voiding Method Toilet Toilet # Voids 2 3 2 - Exam Gen.: Patient is alert and oriented 3, no acute distress Cardiovascular: Regular rate and rhythm, S1/S2 Lungs: Coarse breath sounds bilaterally Abdomen: Soft nontender nondistended positive bowel sounds Extremities: No edema - Labs CBC & Chem 7: 05/31/16 06:30 06/01/16 10:53 Labs: Abnormal Lab Results - Last 24 Hours (Table) 05/31/16 05/31/16 06/01/16 Range/Units 17:27 20:14 07:42 BUN (7-17) mg/dL Creatinine (0.52-1.04) mg/dL Glucose (74-99) mg/dL POC Glucose (mg/dL) 143 H 240 H 137 H (75-99) mg/dL 06/01/16 06/01/16 06/01/16 Range/Units 10:53 11:01 17:10 BUN 52 H (7-17) mg/dL Creatinine 1.36 H (0.52-1.04) mg/dL Glucose 249 H (74-99) mg/dL POC Glucose (mg/dL) 274 H 107 H (75-99) mg/dL Assessment and Plan Plan: Acute exacerbation of severe persistent asthma Obesity Obstructive sleep apnea compliant with CPAP Diabetes mellitus type 2 Dyslipidemia History of breast cancer Hypertension Osteoarthritis GERD O2 to maintain saturation greater than equal to 88% Bronchodilators and Pulmicort, will increase dose for now Steroid taper Monitor labs Antibiotics: Levaquin Singulair Continue Mucinex Will increase Lasix to 40 mg IV daily Repeat chest x-ray in the a.m. Check sputum culture if able to expectorate Influenza negative, and atypical pneumonia pending Incentive spirometry and pulmonary hygiene GI and DVT prophylaxis
[2016-06-01] MEDS: PROMETHAZ-COD 6.25-10 MG/5 ML 5 ML CUP PO PRN ×2 (18:23→22:46)
--- NOTE | 2016-06-01 18:30 | PN ---
Patient is a 75-year-old with history of COPD, admitted with COPD exacerbation, although I believe Pulmonary believes patient has asthma exacerbation. Patient is being evaluated for atypical pneumonia. Patient is complaining of severe cough; otherwise her respiratory status is okay. Patient was given a dose of Lasix. I have the results of her echocardiogram which show normal ejection fraction. Patient is on lisinopril. Her potassium was borderline yesterday, because of which I will repeat basic metabolic profile today again to make sure her potassium is not going up. Patient definitely has elevated blood pressure. Patient most probably will need therapeutic bronchoscopy. Flu testing is negative. Her main symptom appears to be uncontrollable cough, as per the patient. REVIEW OF SYSTEMS: CARDIOVASCULAR: No chest pain, no orthopnea, no PND, no palpitations. PULMONARY: As mentioned above. GASTROINTESTINAL: No diarrhea, nausea or vomiting. No abdominal pain. Normoactive bowel sounds. NEUROLOGIC: No headaches, no weakness, no numbness. Medications were reviewed. PHYSICAL EXAMINATION: VITAL SIGNS: Temperature 97.5, pulse of 68, respiratory rate of 18. Blood pressure is 186/81. Saturating at 90% on room air. GENERAL: The patient is alert and oriented x3, not in any acute distress. Well developed, well nourished. HEENT: Pupils are round and equally reacting to light. EOMI. No scleral icterus. No conjunctival pallor. Normocephalic, atraumatic. No pharyngeal erythema. No thyromegaly. CARDIOVASCULAR: S1 and S2 present. No murmurs, rubs, or gallops. PULMONARY: Breath sounds present bilaterally. Rhonchorous breath sounds. Minimal wheeze was appreciated. ABDOMEN: Soft, nontender, nondistended, normoactive bowel sounds. No palpable organomegaly. MUSCULOSKELETAL: No joint swelling or deformity. EXTREMITIES: No cyanosis, clubbing, or pedal edema. NEUROLOGICAL: Gross neurological examination did not reveal any focal deficits. SKIN: No rashes. LABORATORY DATA: CBC, CMP are not available, but kidney function was 1.27, BUN of 49. Potassium of 5.2. I believe they are a bit worse because of the Lasix she received. Chest x-ray from yesterday was reviewed. Echocardiogram was reviewed; essentially within normal limits. Initially I ordered an echocardiogram, which will be cancelled because it was already done. Urinary legionella antigen and mycoplasma antibodies were ordered by Pulmonary, which is appropriate, evaluating for atypical pneumonia. ASSESSMENT AND PLAN: 1. Acute exacerbation of chronic obstructive pulmonary disease or asthma. Please refer to slot machine mechanic's dictation for further details. Continue with systemic steroids and antibiotics. 2. Rule out atypical pneumonia. 3. Type 2 diabetes mellitus. 4. Hypertension. 5. Dyslipidemia. 6. Osteoarthritis. 7. History of breast cancer, status post mastectomy and chemotherapy. 8. Chronic kidney disease, stage II or III. 9. Obstructive sleep apnea. 10. Hypothyroidism. Her V/Q scan shows low probability for pulmonary embolism. Plan is to continue with present medications, antibiotics, cough medications. Assess her kidney function and electrolyte levels.
[2016-06-01] MEDS: BUDESONIDE 1 MG/2 ML NEBU INHALATION SCH (19:47)
[2016-06-01 19:50] LABS: Glucose,Whole Blood 254 mg/dL (75-99)
[2016-06-01] MEDS: POLYETHYLENE GLYCOL 3350 17 GM POWD.PACK PO SCH (20:20)
[2016-06-01] MEDS: MONTELUKAST 10 MG TAB PO SCH (20:21)
[2016-06-01] MEDS: GABAPENTIN 300 MG CAP PO SCH (20:22)
[2016-06-01] MEDS: LEVOFLOXACIN 250 MG TAB PO SCH (20:22)
[2016-06-01] MEDS: ALPRAZolam 0.25 MG TAB PO PRN (20:22)
[2016-06-01] MEDS ORDERED: INSULIN GLARGINE 100 UNIT/ML 10 ML VIAL SQ SCH (21:00)
[2016-06-02] MEDS: HEPARIN SODIUM,PORCINE 5,000 UNIT/ML 1 ML VIAL SQ SCH ×3 (01:27→15:17)
[2016-06-02] MEDS: CHLORPHEN-HYDROcod 8-10mg/5ml 5 ML ORAL.SYRG PO SCH ×2 (02:13→11:42)
[2016-06-02] MEDS: LEVOTHYROXINE 50 MCG TAB PO SCH (06:43)
[2016-06-02 07:17] LABS: Glucose,Whole Blood 136 mg/dL (75-99)
[2016-06-02] MEDS: PIOGLITAZONE 45 MG TAB PO SCH (07:45)
[2016-06-02] MEDS: LISINOPRIL-HCTZ 10-12.5 MG 1 EACH TAB PO SCH ×2 (07:45→21:21)
[2016-06-02] MEDS: guaiFENesin 600 MG TABLET.ER PO SCH ×2 (07:46→19:35)
[2016-06-02] MEDS: ACETAMINOPHEN TAB 325 MG TAB PO PRN (07:46)
[2016-06-02] MEDS: ASPIRIN 81 MG CHEW PO SCH (07:46)
[2016-06-02] MEDS: ATORVASTATIN 10 MG TAB PO SCH (07:46)
[2016-06-02] MEDS: FUROSEMIDE 10 MG/ML 4 ML VIAL IV SCH ×2 (07:47→19:35)
[2016-06-02] MEDS: methylPREDNISolone SOD SUCCI 125 MG/2 ML VIAL IV SCH ×2 (07:47→19:36)
[2016-06-02] MEDS: IPRATROPIUM-ALBUTEROL 3 ML NEB INHALATION SCH ×4 (08:10→20:23)
[2016-06-02] MEDS: BUDESONIDE 1 MG/2 ML NEBU INHALATION SCH ×2 (08:10→20:23)
[2016-06-02] MEDS: INSULIN LISPRO (humaLOG) 300 UNIT/3 ML VIAL SQ SCH ×4 (08:24→21:20)
[2016-06-02 09:27] LABS: Calcium 9.4 mg/dL (8.4-10.2); Potassium 4.7 mmol/L (3.5-5.1)
[2016-06-02 11:24] LABS: Glucose,Whole Blood 269 mg/dL (75-99)
[2016-06-02] MEDS: MULTIVITAMINS, THERA 1 EACH TAB PO SCH (11:42)
--- NOTE | 2016-06-02 12:58 | PN ---
The patient is admitted with COPD exacerbation. Actually respiratory status appeared to have minimally improved, although patient is still wheezing significantly and gets short of breath with minimal ambulation. Patient's creatinine did improve with IV Lasix. Patient was started on scheduled IV Lasix. Patient may have diastolic dysfunction with acute exacerbation. Her potassium did improve as well. REVIEW OF SYSTEMS: CARDIOVASCULAR: No chest pain, no orthopnea, no PND, no palpitations. PULMONARY: Denied any shortness of breath. No cough or hemoptysis. GASTROINTESTINAL: No diarrhea, nausea or vomiting. No abdominal pain. Normoactive bowel sounds. NEUROLOGIC: No headaches, no weakness, no numbness. Medications were reviewed. PHYSICAL EXAMINATION: VITAL SIGNS: Temperature 97.5, pulse of 66, respiratory rate of 18, blood pressure 138/89. GENERAL: The patient is alert and oriented x3, not in any acute distress. Well developed, well nourished. HEENT: Pupils are round and equally reacting to light. EOMI. No scleral icterus. No conjunctival pallor. Normocephalic, atraumatic. No pharyngeal erythema. No thyromegaly. CARDIOVASCULAR: S1 and S2 present. No murmurs, rubs, or gallops. PULMONARY: Significant expiratory wheezing was appreciated, rhonchus breath sounds and fairly good air entry into bilateral lung chaudhry. ABDOMEN: Soft, nontender, nondistended, normoactive bowel sounds. No palpable organomegaly. MUSCULOSKELETAL: No joint swelling or deformity. EXTREMITIES: No cyanosis, clubbing, or pedal edema. NEUROLOGICAL: Gross neurological examination did not reveal any focal deficits. SKIN: No rashes. LABORATORY DATA: Basic metabolic profile showed improvement in creatinine as mentioned above. ASSESSMENT AND PLAN: 1. Acute exacerbation of asthma versus chronic obstructive pulmonary disease. Continue with systemic steroids and inhalational steroids. Possibility of chronic diastolic dysfunction with acute exacerbation congestive heart failure. 2. Type 2 diabetes mellitus. 3. Rule out atypical pneumonia. Labs for Mycoplasma and Legionella urinary antigen are still pending. Patient is on levofloxacin, which will be continued. 4. Osteoarthritis. 5. History of breast cancer, status post mastectomy and chemotherapy. 6. Possibility of chronic kidney disease stage II. 7. Acute renal failure secondary to prerenal azotemia from congestive heart failure. 8. Obstructive sleep apnea. 9. Hypothyroidism. Patient is not yet ready to be discharged today.
--- NOTE | 2016-06-02 16:03 | P.PN ---
Subjective Principal diagnosis: Acute exacerbation of asthma Patient seen and examined. Patient states that she is maybe a little bit better. She states that she is still wheezing and coughing. Objective - Vital Signs Vital signs: Vital Signs Temp 97 F L 06/02/16 15:00 Pulse 87 06/02/16 15:00 Resp 20 06/02/16 15:00 BP 110/43 06/02/16 15:00 Pulse Ox 95 06/02/16 15:00 Intake & Output 06/01/16 06/02/16 06/02/16 18:59 06:59 18:59 Intake Total 2130 Balance 2130 Weight 110.223 kg Intake: Oral 2130 Other: Voiding Method Toilet Toilet Toilet Diaper Incontinent # Voids 2 1 2 - Exam Gen.: Patient is alert and oriented 3, no acute distress Cardiovascular: Regular rate and rhythm, S1/S2 Lungs: Coarse breath sounds bilaterally Abdomen: Soft nontender nondistended positive bowel sounds Extremities: No edema - Labs CBC & Chem 7: 05/31/16 06:30 06/02/16 08:32 Labs: Abnormal Lab Results - Last 24 Hours (Table) 06/01/16 06/01/16 06/02/16 Range/Units 17:10 19:48 07:14 BUN (7-17) mg/dL Creatinine (0.52-1.04) mg/dL Glucose (74-99) mg/dL POC Glucose (mg/dL) 107 H 254 H 136 H (75-99) mg/dL 06/02/16 06/02/16 Range/Units 08:32 11:20 BUN 52 H (7-17) mg/dL Creatinine 1.17 H (0.52-1.04) mg/dL Glucose 123 H (74-99) mg/dL POC Glucose (mg/dL) 269 H (75-99) mg/dL Assessment and Plan Plan: Acute exacerbation of severe persistent asthma Obesity Acute exacerbation of diastolic congestive heart failure Obstructive sleep apnea compliant with CPAP Diabetes mellitus type 2 Dyslipidemia History of breast cancer Hypertension Osteoarthritis GERD O2 to maintain saturation greater than equal to 88% Bronchodilators and Pulmicort, will increase dose for now Steroid taper Monitor labs Antibiotics: Levaquin Singulair Will add Perforomist Continue Mucinex Will increase Lasix to 40 mg IV BID to achieve negative fluid balance Check sputum culture if able to expectorate Influenza negative, and atypical pneumonia pending Incentive spirometry and pulmonary hygiene GI and DVT prophylaxis
[2016-06-02] MEDS: HYDROcodone/APAP 10-325MG 1 EACH TAB PO PRN (16:28)
[2016-06-02 17:01] LABS: Glucose,Whole Blood 192 mg/dL (75-99)
[2016-06-02] MEDS: GABAPENTIN 300 MG CAP PO SCH (19:35)
[2016-06-02] MEDS: LEVOFLOXACIN 250 MG TAB PO SCH (19:35)
[2016-06-02] MEDS: POLYETHYLENE GLYCOL 3350 17 GM POWD.PACK PO SCH (19:36)
[2016-06-02] MEDS: MONTELUKAST 10 MG TAB PO SCH (19:36)
[2016-06-02 19:57] LABS: Glucose,Whole Blood 190 mg/dL (75-99)
[2016-06-02] MEDS: FORMOTEROL FUMARATE 20 MCG/2 ML NEBU INHALATION SCH (20:23)
[2016-06-02] MEDS: ALPRAZolam 0.25 MG TAB PO PRN (21:11)
[2016-06-02] MEDS: PROMETHAZ-COD 6.25-10 MG/5 ML 5 ML CUP PO PRN (21:16)
[2016-06-03] MEDS: HEPARIN SODIUM,PORCINE 5,000 UNIT/ML 1 ML VIAL SQ SCH ×4 (01:23→23:34)
[2016-06-03] MEDS: CHLORPHEN-HYDROcod 8-10mg/5ml 5 ML ORAL.SYRG PO SCH ×2 (01:25→15:39)
[2016-06-03] MEDS: LEVOTHYROXINE 50 MCG TAB PO SCH (06:16)
[2016-06-03 07:23] LABS: Glucose,Whole Blood 125 mg/dL (75-99)
[2016-06-03] MEDS: INSULIN LISPRO (humaLOG) 300 UNIT/3 ML VIAL SQ SCH ×4 (08:20→20:21)
[2016-06-03] MEDS: PIOGLITAZONE 45 MG TAB PO SCH (08:23)
[2016-06-03] MEDS: FUROSEMIDE 10 MG/ML 4 ML VIAL IV SCH ×2 (08:23→21:26)
[2016-06-03] MEDS: guaiFENesin 600 MG TABLET.ER PO SCH ×2 (08:23→20:20)
[2016-06-03] MEDS: ATORVASTATIN 10 MG TAB PO SCH (08:23)
[2016-06-03] MEDS: methylPREDNISolone SOD SUCCI 125 MG/2 ML VIAL IV SCH ×3 (08:23→23:34)
[2016-06-03] MEDS: ASPIRIN 81 MG CHEW PO SCH (08:23)
[2016-06-03] MEDS: LISINOPRIL-HCTZ 10-12.5 MG 1 EACH TAB PO SCH ×2 (08:23→20:21)
[2016-06-03] MEDS: BUDESONIDE 1 MG/2 ML NEBU INHALATION SCH ×2 (08:39→21:18)
[2016-06-03] MEDS: IPRATROPIUM-ALBUTEROL 3 ML NEB INHALATION SCH ×4 (08:39→21:18)
[2016-06-03] MEDS: FORMOTEROL FUMARATE 20 MCG/2 ML NEBU INHALATION SCH ×2 (08:39→21:18)
[2016-06-03 09:52] LABS: CH 32.2; CHCM 33.1; HCT 32.2 % (34.0-46.0); HDW 2.25; HGB 10.7 gm/dL (11.4-16.0); MCH 32.3 pg (25.0-35.0); MCHC 33.1 g/dL (31.0-37.0); MCV 97.8 fL (80.0-100.0); Mean Platelet Volume 8.7; RDW 13.5 % (11.5-15.5); WBC 9.8 k/uL (3.8-10.6)
[2016-06-03] MEDS: PROMETHAZ-COD 6.25-10 MG/5 ML 5 ML CUP PO PRN (09:53)
[2016-06-03 10:36] LABS: Calcium 8.8 mg/dL (8.4-10.2)
--- NOTE | 2016-06-03 11:16 | PN ---
Patient is admitted with COPD exacerbation. Patient is also being treated for CHF diastolic dysfunction with acute exacerbation. Patient has improved respiratory status as well as improved creatinine with IV Lasix. The IV Lasix was changed to 40 b.i.d., which will be continued. Patient still has rhonchus breath sounds and minimal expiratory wheezing. I do not believe patient is yet ready to be discharged today. Patient is still coughing quite a bit she says. REVIEW OF SYSTEMS: CARDIOVASCULAR: No chest pain, no orthopnea, no PND, no palpitations. RESPIRATORY: As described HPI. GASTROINTESTINAL: No diarrhea, nausea or vomiting. No abdominal pain. Normoactive bowel sounds. NEUROLOGIC: No headaches, no weakness, no numbness. Medications were reviewed. PHYSICAL EXAMINATION: VITAL SIGNS: Temperature 97.6, pulse 52, respiratory rate of 16, blood pressure is 127/60, saturating at 95% on room air, but patient gets easily winded and short of breath with minimal exertion. GENERAL: The patient is alert and oriented x3, not in any acute distress. Well developed, well nourished. HEENT: Pupils are round and equally reacting to light. EOMI. No scleral icterus. No conjunctival pallor. Normocephalic, atraumatic. No pharyngeal erythema. No thyromegaly. CARDIOVASCULAR: S1 and S2 present. No murmurs, rubs, or gallops. RESPIRATORY: Significant expiratory wheezing with rhonchus breath sounds bilaterally. Decreased air entry to bilateral lung chaudhry. ABDOMEN: Soft, nontender, nondistended, normoactive bowel sounds. No palpable organomegaly. MUSCULOSKELETAL: No joint swelling or deformity. EXTREMITIES: No cyanosis, clubbing, or pedal edema. NEUROLOGICAL: Gross neurological examination did not reveal any focal deficits. SKIN: No rashes. LABORATORY DATA: Improved creatinine to 1.17. BUN remains stable at 52. ASSESSMENT AND PLAN: 1. Acute exacerbation of asthma. Patient may have component of chronic obstructive pulmonary disease exacerbation as well. Continue with systemic steroids and inhalational treatments. 2. Chronic diastolic dysfunction with acute exacerbation congestive heart failure. Continue with IV Lasix. 3. Type 2 diabetes mellitus. 4. Rule out atypical pneumonia, ( ) mycoplasma and Legionella are still pending. Patient's influenza ( ) PCR are negative. 5. Osteoarthritis. 6. History of breast cancer, status post mastectomy and chemotherapy in remission. 7. Possible chronic kidney disease stage II. 8. Acute renal failure secondary to prerenal azotemia from congestive heart failure. 9. Obstructive sleep apnea. 10. Hypothyroidism.
[2016-06-03 12:21] LABS: Glucose,Whole Blood 182 mg/dL (75-99)
[2016-06-03] MEDS: MULTIVITAMINS, THERA 1 EACH TAB PO SCH (12:34)
[2016-06-03 17:20] LABS: Glucose,Whole Blood 139 mg/dL (75-99)
--- NOTE | 2016-06-03 18:55 | PN ---
DATE OF SERVICE: 06/03/2016. The patient is a 75-year-old female who is seen sitting up in bed, is awake and alert. Continues to complain of shortness of breath with a cough, just starting to become productive and bringing up some phlegm. The patient is afebrile, hemodynamically stable, in no acute distress. On physical exam, vital signs, temp is 97.6, heart rate is 76, respiratory rate 16, blood pressure is 127/60. O2 sats 95% on room air. HEENT: Head is normocephalic, atraumatic. NECK: Supple. Trachea is midline. LUNGS: with scattered wheezes and rhonchi. HEART: S1 and S2 are heard. Not tachycardic. ABDOMEN: Soft. Bowel sounds are heard. EXTREMITIES: With no edema. NEUROLOGIC: The patient is awake, alert, oriented. LABS: White count is 9.8, hemoglobin is 10.7, hematocrit 32.2, with 152,000 platelets. Sodium is 137, potassium is 4.0, chloride 100, CO2 is 27. Anion gap is 10, BUN is 58, creatinine is 1.44. Glucose is 169. Calcium is 8.8. No new imaging to review. IMPRESSION: 1. Acute exacerbation of severe persistent asthma. 2. Obesity. 3. Acute exacerbation of diastolic congestive heart failure. 4. Obstructive sleep apnea compliant with CPAP. 5. Diabetes mellitus type 2. 6. Dyslipidemia. 7. History of breast cancer. 8. Hypertension. 9. Osteoarthritis. 10. Gastroesophageal reflux disease. PLAN: Continue O2 to maintain saturations greater than or equal to 88%. Continue bronchodilators and aerosolized steroids. Continue the IV Solu-Medrol. The patient will be increased to 60 mg q.6 x4 doses. Then we will attempt to wean again. Continue IV antibiotics. Continue leukotriene inhibitors. Continue to attempt to maintain a negative fluid balance. Increase activity as tolerated. Continue incentive spirometry and pulmonary hygiene with GI and DVT prophylaxis and we will follow the patient closely with you, making further changes as necessary. I performed a history and physical examination of this patient and discussed the same with the dictator. I agree with the dictator's note. Any additional findings/opinions, etc. will be noted.
[2016-06-03] MEDS: POLYETHYLENE GLYCOL 3350 17 GM POWD.PACK PO SCH (19:39)
[2016-06-03] MEDS: MONTELUKAST 10 MG TAB PO SCH (19:39)
[2016-06-03 20:01] LABS: Glucose,Whole Blood 175 mg/dL (75-99)
[2016-06-03] MEDS: LEVOFLOXACIN 250 MG TAB PO SCH (20:20)
[2016-06-03] MEDS: GABAPENTIN 300 MG CAP PO SCH (20:21)
[2016-06-03] MEDS: BENZOCAINE/MENTHOL LOZENG 1 EACH LOZENGE MUCOUS MEM PRN (23:33)
[2016-06-03] MEDS: ALPRAZolam 0.25 MG TAB PO PRN (23:34)
[2016-06-04] MEDS ORDERED: NITROGLYCERIN SL TABS 0.4 MG TAB SUBLINGUAL PRN (02:23)
[2016-06-04] MEDS ORDERED: MORPHINE SULFATE 2 MG/ML SYRINGE IVP PRN (02:24)
--- NOTE | 2016-06-04 02:26 | XR ---
EXAMINATION TYPE: XR chest 1V portable DATE OF EXAM: 06/04/2016 2:15 AM COMPARISON: 06/01/2016 HISTORY: Chest pain and cough TECHNIQUE: Single frontal view of the chest is obtained. FINDINGS: There is no heart failure nor confluent pneumonic infiltrate. There are no hilar masses. T here is no definite pleural effusion. Thoracic aorta is atheromatous. IMPRESSION: No heart failure or pulmonary consolidation. No change compared to last exam.
[2016-06-04 02:47] LABS: Calcium 9.2 mg/dL (8.4-10.2)
[2016-06-04 02:57] LABS: Glucose,Whole Blood 223 mg/dL (75-99)
[2016-06-04] MEDS: INSULIN LISPRO (humaLOG) 300 UNIT/3 ML VIAL SQ SCH ×4 (02:58→20:09)
[2016-06-04] MEDS: CHLORPHEN-HYDROcod 8-10mg/5ml 5 ML ORAL.SYRG PO SCH ×2 (03:46→15:27)
[2016-06-04 03:48] LABS: Creatine Kinase MB 0.7 ng/mL (0.0-2.4)
[2016-06-04 04:11] LABS: Troponin I 0.091 ng/mL (0.000-0.034)
[2016-06-04] MEDS: methylPREDNISolone SOD SUCCI 125 MG/2 ML VIAL IV SCH ×2 (05:46→12:08)
[2016-06-04] MEDS: LEVOTHYROXINE 50 MCG TAB PO SCH (06:17)
[2016-06-04 06:25] LABS: Mycoplasma IgG Antibody (EIA) 0.87 INDEX (<=0.90); Mycoplasma IgM Antibody 0.25 INDEX (<=0.90)
[2016-06-04 06:58] LABS: Glucose,Whole Blood 137 mg/dL (75-99)
[2016-06-04] MEDS: FORMOTEROL FUMARATE 20 MCG/2 ML NEBU INHALATION SCH ×2 (08:19→19:49)
[2016-06-04] MEDS: IPRATROPIUM-ALBUTEROL 3 ML NEB INHALATION SCH ×4 (08:19→19:49)
[2016-06-04] MEDS: BUDESONIDE 1 MG/2 ML NEBU INHALATION SCH ×2 (08:19→19:49)
[2016-06-04] MEDS: guaiFENesin 600 MG TABLET.ER PO SCH ×2 (08:30→20:08)
[2016-06-04] MEDS: LISINOPRIL-HCTZ 10-12.5 MG 1 EACH TAB PO SCH (08:30)
[2016-06-04] MEDS: HEPARIN SODIUM,PORCINE 5,000 UNIT/ML 1 ML VIAL SQ SCH ×2 (08:30→15:48)
[2016-06-04] MEDS: FUROSEMIDE 10 MG/ML 4 ML VIAL IV SCH (08:30)
[2016-06-04] MEDS: ATORVASTATIN 10 MG TAB PO SCH (08:31)
[2016-06-04] MEDS: PIOGLITAZONE 45 MG TAB PO SCH (08:31)
[2016-06-04] MEDS: ASPIRIN 81 MG CHEW PO SCH (08:31)
--- NOTE | 2016-06-04 11:06 | P.CRDCN ---
History of Present Illness Consult date: 06/04/16 Chief complaint: Chest pain History of present illness: This is a pleasant 75-year-old female patient who I follow in the office as an outpatient with a known history of hypertension, diabetes, dyslipidemia, and chronic kidney disease, was admitted to the hospital with COPD exacerbation. We get involved in the care of the patient because she had chest discomfort yesterday. She was sitting in her bed when she developed chest discomfort in the middle of the chest as a sharp kind of discomfort with some radiation to the neck. The EKG did not show any significant ST or T-wave abnormalities consistent with ischemia. She underwent 3 sets of cardiac enzymes with the first set came in to be normal and the second obtuse ischemic to be abnormal. The patient continues to be pain-free after that episode yesterday. She underwent a stress test about a year ago as an outpatient and that was unremarkable. During her hospitalization she underwent an echocardiogram which showed normal LV function. I recommended proceeding with a heart catheterization. Unfortunately the patient GFR is quite low. I would suggest keep the patient over the weekend in the hospital and hydrate her over the weekend and to check the BUN and creatinine in the morning on Tuesday if they are stable I would probably consider proceeding with heart catheterization. I would continue for now the patient on the aspirin and a statin. Past Medical History Past Medical History: Cancer, COPD, Diabetes Mellitus, Eye Disorder, Hyperlipidemia, Hypertension, Osteoarthritis (OA), Pneumonia, Renal Disease, Sleep Apnea/CPAP/BIPAP, Thyroid Disorder Additional Past Medical History / Comment(s): has "leaky valve" hx breast cancer 1999, hx. glaucoma, diverticulosis,rosacea,sciatic nerve pain, anemia has taken iron infusions,past migraines and gerd. fx of lt wrist, ribs, coccyx. History of Any Multi-Drug Resistant Organisms: None Reported Past Surgical History: Breast Surgery, Orthopedic Surgery Additional Past Surgical History / Comment(s): 1999, lt breast bx, lt MASTECTOMY /TRANSFLAP/CHEMO, rosalind cataract, rosalind ROTATOR CUFF, colonoscopy/egd, d&c Past Anesthesia/Blood Transfusion Reactions: Motion Sickness Additional Past Anesthesia/Blood Transfusion Reaction / Comment(s): clausterphobic in mri machines Past Psychological History: No Psychological Hx Reported Smoking Status: Former smoker Past Alcohol Use History: None Reported Additional Past Alcohol Use History / Comment(s): smoked from 1976-to 04/26 ppd. Past Drug Use History: None Reported - Past Family History Father Family Medical History: Asthma, Dementia Additional Family Medical History / Comment(s): "heart problems" Mother Family Medical History: Coronary Artery Disease (CAD), Diabetes Mellitus Additional Family Medical History / Comment(s): triple vessel cabg Brother(s) Family Medical History: Cancer, Coronary Artery Disease (CAD) Additional Family Medical History / Comment(s): a 2nd brother from cancer Medications and Allergies Home Medications Medication Instructions Recorded Confirmed Type Ergocalciferol [Vitamin D2] 50,000 unit PO Q14D 10/23/14 05/28/16 History Levothyroxine Sodium [Synthroid] 50 mcg PO DAILY 10/23/14 05/28/16 History Lisinopril-Hctz 10-12.5 mg 1 tab PO BID 10/23/14 05/28/16 History [Zestoretic 10-12.5] Pioglitazone [Actos] 45 mg PO DAILY 10/23/14 05/28/16 History Rosuvastatin [Crestor] 5 mg PO DAILY 10/23/14 05/28/16 History ALPRAZolam [Xanax] 0.25 mg PO HS PRN 12/23/15 05/28/16 History Albuterol Nebulized [Ventolin 2.5 mg INHALATION RT-Q6H PRN 12/23/15 05/28/16 History Nebulized] Aspirin 81 mg PO DAILY 12/23/15 05/28/16 History Budesonide [Pulmicort] 0.5 mg INHALATION RT-BID PRN 12/23/15 05/28/16 History D-Mannose 500 mg PO DAILY 12/23/15 05/28/16 History Multivitamins, Thera [Multivitamin] 1 tab PO DAILY 12/23/15 05/28/16 History Vitamin B Complex 1 cap PO DAILY 12/23/15 05/28/16 History Furosemide [Lasix] 20 mg PO DAILY 05/28/16 05/28/16 History Gabapentin [Neurontin] 300 mg PO HS 05/28/16 05/28/16 History Sulfamethoxazole/Trimethoprim 1 each PO BID 05/28/16 06/03/16 History [Bactrim DS 800-160 mg] predniSONE 20 mg PO DAILY 05/28/16 05/28/16 History traMADol HCL [Ultram] 50 mg PO Q6HR PRN 05/28/16 05/28/16 History Allergies Allergy/AdvReac Type Severity Reaction Status Date / Time Iodinated Contrast Media - Allergy Unknown Verified 05/28/16 15:54 Oral and Physical Exam Vitals: Vital Signs Temp Pulse Pulse Pulse Resp BP Pulse Ox 06/04/16 08:39 74 06/04/16 08:29 72 06/04/16 08:28 72 06/04/16 08:20 68 06/04/16 08:00 16 06/04/16 07:00 97.4 F L 60 16 138/65 96 06/04/16 06:21 98.2 F 61 16 133/65 96 06/04/16 03:02 66 16 114/62 96 06/04/16 02:30 71 16 109/50 97 06/04/16 02:00 72 16 173/87 96 06/03/16 23:59 61 16 06/03/16 21:45 80 06/03/16 21:32 80 06/03/16 21:31 80 06/03/16 21:30 98.1 F 61 16 110/53 92 L 06/03/16 21:18 80 06/03/16 19:43 102/44 06/03/16 19:18 97.8 F 84 18 94 L 06/03/16 17:16 76 06/03/16 16:59 76 06/03/16 15:38 97.8 F 73 18 105/49 95 06/03/16 12:47 76 06/03/16 12:35 72 Intake and Output 06/03/16 06/04/16 06/04/16 22:59 06:59 14:59 Intake Total 120 200 Balance 120 200 Intake: Oral 120 200 Other: Voiding Method Toilet Toilet Toilet Diaper Diaper Diaper Incontinent Incontinent Incontinent # Voids 1 2 Weight 110.223 kg - Constitutional General appearance: no acute distress - Respiratory Respiratory: bilateral: rhonchi - Cardiovascular Rhythm: regular Heart sounds: normal: S1, S2 Results 06/03/16 09:35 06/04/16 02:17 Cardiac Enzymes 06/04/16 06/04/16 Range/Units 02:17 09:07 CK-MB (CK-2) 0.7 (0.0-2.4) ng/mL Troponin I 0.091 H* 0.082 H* (0.000-0.034) ng/mL Comprehensive Metabolic Panel 06/04/16 Range/Units 02:17 Sodium 137 (137-145) mmol/L Potassium 5.0 (3.5-5.1) mmol/L Chloride 97 L (98-107) mmol/L Carbon Dioxide 28 (22-30) mmol/L BUN 75 H (7-17) mg/dL Creatinine 1.70 H (0.52-1.04) mg/dL Glucose 213 H (74-99) mg/dL Calcium 9.2 (8.4-10.2) mg/dL Current Medications Generic Name Dose Route Start Last Admin Trade Name Freq PRN Reason Stop Dose Admin Acetaminophen 650 mg 05/29/16 12:52 06/02/16 07:46 Tylenol Tab PO 650 mg Q6HR PRN Administration Fever Acetaminophen/Hydrocodone Bitart 1 each 05/30/16 00:13 06/02/16 16:28 [place] 10 PO 1 each Q6H PRN Administration Pain Albuterol/Ipratropium 3 ml 05/28/16 20:00 06/04/16 08:19 Duoneb 0.5 Mg-3 Mg/3 Ml Soln INHALATION 3 ml RT-QID ART Administration Alprazolam 0.25 mg 05/28/16 19:32 06/03/16 23:34 Xanax PO 0.25 mg HS PRN Administration Aspirin 81 mg 05/29/16 09:00 06/04/16 08:31 Aspirin PO 81 mg DAILY ART Administration Atorvastatin Calcium 10 mg 05/29/16 09:00 06/04/16 08:31 Lipitor PO 10 mg DAILY ART Administration Benzocaine/Menthol 1 each 05/29/16 16:18 06/03/16 23:33 Cepacol Lozenge MUCOUS MEM 1 each Q4HR PRN Administration Sore Throat Budesonide 1 mg 06/01/16 20:00 06/04/16 08:19 Pulmicort INHALATION 1 mg RT-BID ART Administration Chlorphenir/Hydrocodone Polistirex 5 ml 05/30/16 02:00 06/04/16 03:46 Tussionex PO Not Given Q12H [facility] Ergocalciferol 50,000 unit 06/09/16 09:00 Vitamin D2 PO Q14D ART Formoterol Fumarate 20 mcg 06/02/16 20:00 06/04/16 08:19 Perforomist INHALATION 20 mcg RT-BID ART Administration Gabapentin 300 mg 05/28/16 21:00 06/03/16 20:21 Neurontin PO 300 mg HS ART Administration Guaifenesin 600 mg 05/31/16 21:00 06/04/16 08:30 Mucinex PO 600 mg Q12HR ART Administration Heparin Sodium (Porcine) 5,000 unit 05/31/16 16:00 06/04/16 08:30 Heparin SQ 5,000 unit Q8HR ART Administration Insulin Human Lispro 0 unit 05/28/16 21:00 06/04/16 02:58 Humalog SQ 7 unit ACHS ART Administration Protocol Levofloxacin 250 mg 05/31/16 21:00 06/03/16 20:20 Levaquin PO 250 mg HS ART Administration Levothyroxine Sodium 50 mcg 05/29/16 06:30 06/04/16 06:17 Synthroid PO 50 mcg 0630 ART Administration Methylprednisolone Sodium Succinate 60 mg 06/03/16 18:00 06/04/16 05:46 Solu-Medrol IV 06/04/16 12:01 60 mg Q6HR ART Administration Montelukast Sodium 10 mg 05/29/16 21:00 06/03/16 19:39 Singulair PO 10 mg HS ART Administration Morphine Sulfate 2 mg 06/04/16 02:24 06/04/16 02:30 Morphine Sulfate (Inj) IVP 2 mg Q3H PRN Administration Pain/Discomfort Multivitamins 1 each 05/29/16 12:00 06/03/16 12:34 Theragran PO 1 each 1200 ART Administration Nitroglycerin 0.4 mg 06/04/16 02:23 06/04/16 02:30 Nitrostat SUBLINGUAL 0.4 mg Q15M PRN Administration Chest Pain Pioglitazone HCl 45 mg 05/29/16 09:00 06/04/16 08:31 Actos PO 45 mg DAILY ART Administration Polyethylene Glycol 17 gm 05/30/16 21:00 06/03/16 19:39 Miralax PO 17 gm HS ART Administration Promethazine HCl/Codeine 5 ml 05/30/16 16:10 06/03/16 09:53 Phenergan With Codeine PO 5 ml Q6H PRN Administration Cold Symptoms Intake and Output 06/03/16 06/04/16 06/04/16 22:59 06:59 14:59 Intake Total 120 200 Balance 120 200 Intake: Oral 120 200 Other: Voiding Method Toilet Toilet Toilet Diaper Diaper Diaper Incontinent Incontinent Incontinent # Voids 1 2 Weight 110.223 kg 06/03/16 09:35 06/04/16 02:17 Assessment and Plan Plan: Assessment #1 COPD exacerbation #2 mildly abnormal cardiac enzymes #3 chronic kidney disease #4 multiple risk factors for CAD including hypertension, diabetes, dyslipidemia Plan #1 conservative medical approach at this point of time and continue the aspirin and statin #2 I recommended proceeding with heart catheterization on Tuesday if the creatinine improve #3 follow-up with the patient
[2016-06-04 11:51] LABS: Glucose,Whole Blood 223 mg/dL (75-99)
[2016-06-04] MEDS: MULTIVITAMINS, THERA 1 EACH TAB PO SCH (12:09)
[2016-06-04 13:11] VITALS: BMI 38.0
--- NOTE | 2016-06-04 14:10 | PN ---
Patient is admitted with COPD exacerbation. Patient was treated for CHF diastolic dysfunction with acute exacerbation. Patient has worsening renal function because of which I discontinued IV Lasix. Patient has chest pain, sharp, radiating to the back. Patient does not have any ( ) chest pain and patient's chest pain is about 8 over 10. Patient did not have any diaphoresis, lasted about 30 minutes. I am holding lisinopril hydrochlorothiazide as well. Her blood pressure is expected to go high, will just watch it. I want her kidney to perfuse well as well so because of which I will let her blood pressure stay high. Cardiology was consulted. Patient has elevated troponin 0.091. It is most probably because of the renal dysfunction rather than myocardial infarction itself. Patient's symptoms does not appear to be myocardial infarction except for those symptoms are relieved by nitroglycerin and lasted for 30 minutes and in the substernal area, although sharp in nature. REVIEW OF SYSTEMS: CARDIOVASCULAR: As described in HPI. PULMONARY: Denied any shortness of breath. No cough or hemoptysis. GASTROINTESTINAL: No diarrhea, nausea or vomiting. No abdominal pain. Normoactive bowel sounds. NEUROLOGIC: No headaches, no weakness, no numbness. Medications were reviewed. Medication changes as mentioned in the interval history. PHYSICAL EXAMINATION: Temperature 97.4, pulse of 74, respiratory rate of 16, blood pressure is 135/65, saturating at 96% on 2 L of O2 nasal cannula. GENERAL: The patient is alert and oriented x3, not in any acute distress. Well developed, well nourished. HEENT: Pupils are round and equally reacting to light. EOMI. No scleral icterus. No conjunctival pallor. Normocephalic, atraumatic. No pharyngeal erythema. No thyromegaly. CARDIOVASCULAR: S1 and S2 present. No murmurs, rubs, or gallops. RESPIRATORY EXAMINATION: Patient's lungs sound much clear today than compared to yesterday. Fairly good air entry into bilateral lung chaudhry. No wheezing was appreciated. No crackles were appreciated. At least this part of the exam is better compared to yesterday. ABDOMEN: Soft, nontender, nondistended, normoactive bowel sounds. No palpable organomegaly. MUSCULOSKELETAL: No joint swelling or deformity. EXTREMITIES: No cyanosis, clubbing, or pedal edema. NEUROLOGICAL: Gross neurological examination did not reveal any focal deficits. SKIN: No rashes. LABORATORY DATA: CBC, CMP are abnormal for elevated BUN and creatinine of 75 and 1.70. ASSESSMENT AND PLAN: 1. Acute exacerbation of asthma for which patient is on systemic steroids and inhalational treatments. 2. Chronic diastolic dysfunction with acute exacerbation. Patient is on the hypovolemic side and worsening renal function because of excessive Lasix. Lasix will be held. 3. Acute renal failure secondary to excessive diuretic therapy. Diuretic therapy will be held along with lisinopril and hydrochlorothiazide. I will leave her blood pressures stay high. 4. Type 2 diabetes mellitus. 5. Rule out atypical pneumonia and patient's Mycoplasma antibody and Legionella antibodies are negative. 6. History of breast cancer, status post mastectomy, chemotherapy and in remission. 7. Possible chronic kidney disease, stage II. 8. Acute renal failure secondary to prerenal azotemia from congestive heart failure. 9. Obstructive sleep apnea. 10. Hypothyroidism. 11. Chest pain, management as mentioned above with minimally elevated troponin, repeat troponin is pending.
--- NOTE | 2016-06-04 14:38 | P.PN ---
Subjective Principal diagnosis: AE Asthma Patient seen and examined. Patient states her breathing is getting better. She feels less wheezy today and her cough is improving. She did have an episode of chest pain last night and was told she needs a heart catheterization. Objective - Vital Signs Vital signs: Vital Signs Temp 97.4 F L 06/04/16 07:00 Pulse 74 06/04/16 08:39 Resp 16 06/04/16 08:00 BP 138/65 06/04/16 07:00 Pulse Ox 96 06/04/16 07:00 Intake & Output 06/03/16 06/04/16 06/04/16 18:59 06:59 18:59 Intake Total 720 320 Balance 720 320 Weight 110.223 kg 110.223 kg Intake: Oral 720 320 Other: Voiding Method Toilet Toilet Toilet Diaper Diaper Diaper Incontinent Incontinent Incontinent # Voids 3 2 - Exam Gen.: Patient is alert and oriented 3, no acute distress Cardiovascular: Regular rate and rhythm, S1/S2 Lungs: Coarse breath sounds bilaterally Abdomen: Soft nontender nondistended positive bowel sounds Extremities: No edema - Labs CBC & Chem 7: 06/03/16 09:35 06/04/16 02:17 Labs: Abnormal Lab Results - Last 24 Hours (Table) 06/03/16 06/03/16 06/04/16 Range/Units 17:18 19:59 02:17 Chloride 97 L (98-107) mmol/L BUN 75 H (7-17) mg/dL Creatinine 1.70 H (0.52-1.04) mg/dL Glucose 213 H (74-99) mg/dL POC Glucose (mg/dL) 139 H 175 H (75-99) mg/dL Troponin I (0.000-0.034) ng/mL 06/04/16 06/04/16 06/04/16 Range/Units 02:17 02:55 06:56 Chloride (98-107) mmol/L BUN (7-17) mg/dL Creatinine (0.52-1.04) mg/dL Glucose (74-99) mg/dL POC Glucose (mg/dL) 223 H 137 H (75-99) mg/dL Troponin I 0.091 H* (0.000-0.034) ng/mL 06/04/16 06/04/16 Range/Units 09:07 11:49 Chloride (98-107) mmol/L BUN (7-17) mg/dL Creatinine (0.52-1.04) mg/dL Glucose (74-99) mg/dL POC Glucose (mg/dL) 223 H (75-99) mg/dL Troponin I 0.082 H* (0.000-0.034) ng/mL Assessment and Plan Plan: Acute exacerbation of severe persistent asthma Obesity Acute chest pain, NSTEMI Acute exacerbation of diastolic congestive heart failure Obstructive sleep apnea compliant with CPAP Diabetes mellitus type 2 Dyslipidemia History of breast cancer Hypertension Osteoarthritis GERD O2 to maintain saturation greater than equal to 88% Bronchodilators and Pulmicort, will increase dose for now Steroid taper Monitor labs Antibiotics: Levaquin Singulair Continue Perforomist Continue Mucinex Will increase Lasix to 40 mg IV BID to achieve negative fluid balance Check sputum culture if able to expectorate Influenza negative, and atypical pneumonia pending Incentive spirometry and pulmonary hygiene GI and DVT prophylaxis
[2016-06-04 17:01] LABS: Glucose,Whole Blood 186 mg/dL (75-99)
[2016-06-04 19:57] LABS: Glucose,Whole Blood 178 mg/dL (75-99)
[2016-06-04] MEDS: GABAPENTIN 300 MG CAP PO SCH (20:08)
[2016-06-04] MEDS: LEVOFLOXACIN 250 MG TAB PO SCH (20:08)
[2016-06-04] MEDS: POLYETHYLENE GLYCOL 3350 17 GM POWD.PACK PO SCH (20:09)
[2016-06-04] MEDS: MONTELUKAST 10 MG TAB PO SCH (20:09)
[2016-06-05] MEDS: HEPARIN SODIUM,PORCINE 5,000 UNIT/ML 1 ML VIAL SQ SCH ×4 (00:19→23:47)
[2016-06-05] MEDS: CHLORPHEN-HYDROcod 8-10mg/5ml 5 ML ORAL.SYRG PO SCH ×2 (01:59→15:08)
[2016-06-05] MEDS: LEVOTHYROXINE 50 MCG TAB PO SCH (06:16)
[2016-06-05 06:56] LABS: Glucose,Whole Blood 143 mg/dL (75-99)
[2016-06-05] MEDS: ATORVASTATIN 10 MG TAB PO SCH (07:56)
[2016-06-05] MEDS: INSULIN LISPRO (humaLOG) 300 UNIT/3 ML VIAL SQ SCH ×4 (07:56→21:02)
[2016-06-05] MEDS: PIOGLITAZONE 45 MG TAB PO SCH (07:56)
[2016-06-05] MEDS: ASPIRIN 81 MG CHEW PO SCH (07:57)
[2016-06-05] MEDS: guaiFENesin 600 MG TABLET.ER PO SCH ×2 (07:57→21:02)
[2016-06-05] MEDS: BUDESONIDE 1 MG/2 ML NEBU INHALATION SCH (09:18)
[2016-06-05] MEDS: FORMOTEROL FUMARATE 20 MCG/2 ML NEBU INHALATION SCH ×2 (09:18→20:22)
[2016-06-05] MEDS: IPRATROPIUM-ALBUTEROL 3 ML NEB INHALATION SCH ×4 (09:18→20:22)
[2016-06-05 10:51] LABS: Calcium 9.1 mg/dL (8.4-10.2); Total Bilirubin 0.7 mg/dL (0.2-1.3); Total Protein 6.6 g/dL (6.3-8.2)
[2016-06-05] MEDS ORDERED: SODIUM CHLORIDE 0.9% 1,000 ML in EMPTY BAG 1 BAG IV ONE (11:40)
[2016-06-05] MEDS ORDERED: ALPRAZolam 0.5 MG TAB PO PRN (11:40)
[2016-06-05] MEDS ORDERED: ATORVASTATIN 80 MG TAB PO STA (11:40)
[2016-06-05] MEDS ORDERED: ALPRAZolam 0.25 MG TAB PO PRN (11:40)
[2016-06-05] MEDS ORDERED: ASPIRIN 325 MG TAB PO STA (11:40)
[2016-06-05] MEDS ORDERED: NITROGLYCERIN SL TABS 0.4 MG TAB SUBLINGUAL PRN (11:40)
--- NOTE | 2016-06-05 11:41 | P.PN ---
Subjective Principal diagnosis: COPD exacerbation This is a pleasant 75-year-old female who follows regularly with Dr. Prater in the office. As a known history of hypertension, diabetes, hyperlipidemia, chronic kidney disease, and COPD. She primarily presented to the hospital with COPD exacerbation. Cardiology consultation was requested because yesterday patient had an episode of chest discomfort. EKG did not reveal any significant ST-T T-wave changes. Echocardiogram with Doppler study was performed which revealed normal left ventricular systolic function, troponins 0.012, 0.091, 0.082.. Patient was seen in consultation by Dr. Prater, recommendation was to proceed with cardiac catheterization on Tuesday if her renal function improved. Creatinine was obtained this morning which was 1.5. She was seen and examined this morning, just having had a shower, complaining of mild shortness of breath, no chest discomfort. Objective - Vital Signs Vital signs: Vital Signs Temp 97.4 F L 06/05/16 07:00 Pulse 80 06/05/16 09:45 Resp 16 06/05/16 08:00 BP 110/56 06/05/16 07:00 Pulse Ox 90 L 06/05/16 07:00 Intake & Output 06/04/16 06/05/16 06/05/16 18:59 06:59 18:59 Intake Total 940 Balance 940 Weight 110.223 kg Intake: Oral 940 Other: Voiding Method Toilet Toilet Toilet Diaper Diaper Diaper Incontinent Incontinent Incontinent # Voids 1 2 # Bowel Movements 1 - Exam PHYSICAL EXAMINATION: HEENT: Head is atraumatic, normocephalic. Pupils equal, round. Neck is supple. There is no elevated jugular venous pressure. HEART EXAMINATION: Heart S1, S2 normal. No murmur or gallop heard. CHEST EXAMINATION: Lungs reveal fine crackles to bilateral bases. ABDOMEN: Soft, obese, nontender. Bowel sounds are heard. No organomegaly noted. EXTREMITIES: 2+ peripheral pulses with no evidence trace peripheral edema and no calf tenderness noted. NEUROLOGIC patient is awake, alert and oriented -3. . - Labs CBC & Chem 7: 06/03/16 09:35 06/05/16 10:09 Labs: Abnormal Lab Results - Last 24 Hours (Table) 06/04/16 06/04/16 06/04/16 Range/Units 11:49 16:51 19:51 Chloride (98-107) mmol/L BUN (7-17) mg/dL Creatinine (0.52-1.04) mg/dL POC Glucose (mg/dL) 223 H 186 H 178 H (75-99) mg/dL 06/05/16 06/05/16 Range/Units 06:55 10:09 Chloride 95 L (98-107) mmol/L BUN 83 H* (7-17) mg/dL Creatinine 1.58 H (0.52-1.04) mg/dL POC Glucose (mg/dL) 143 H (75-99) mg/dL Assessment and Plan (1) Acute exacerbation of chronic obstructive airways disease Status: Acute (2) Elevated troponin Status: Acute (3) HTN (hypertension) Status: Acute (4) Diabetes Status: Acute (5) Hyperlipemia Status: Acute (6) Chronic kidney disease Status: Acute Plan: From cardiology's perspective, we will continue baby aspirin daily along with statin. ASHER inhibitor is currently on hold because the patient's renal function. We will order lytes BUN and creatinine to be drawn tomorrow and again Tuesday morning. Continue IV fluids at 75 mL per hour. If creatinine remains stable plan is to proceed with cardiac catheterization on Tuesday by Dr. Prater. Risks and benefits were explained to the patient in detail and she is willing to proceed. DNP note has been reviewed, I agree with a documented findings and plan of care. Patient was seen and examined.
[2016-06-05 12:11] LABS: Glucose,Whole Blood 104 mg/dL (75-99)
[2016-06-05] MEDS: MULTIVITAMINS, THERA 1 EACH TAB PO SCH (12:13)
--- NOTE | 2016-06-05 13:03 | P.PN ---
Subjective Principal diagnosis: Acute exacerbation of asthma Patient seen and examined. Patient states her breathing is better today. She is still having a cough which is occasionally productive of sputum. She denies fevers and chills. The plan is for a left heart catheterization on Tuesday. Objective - Vital Signs Vital signs: Vital Signs Temp 97.4 F L 06/05/16 07:00 Pulse 78 06/05/16 12:42 Resp 16 06/05/16 08:00 BP 110/56 06/05/16 07:00 Pulse Ox 90 L 06/05/16 07:00 Intake & Output 06/04/16 06/05/16 06/05/16 18:59 06:59 18:59 Intake Total 940 Balance 940 Weight 110.223 kg Intake: Oral 940 Other: Voiding Method Toilet Toilet Toilet Diaper Diaper Diaper Incontinent Incontinent Incontinent # Voids 1 2 # Bowel Movements 1 - Exam Gen.: Patient is alert and oriented 3, no acute distress Cardiovascular: Regular rate and rhythm, S1/S2 Lungs: Scattered expiratory wheezing, markedly improved aeration bilaterally Abdomen: Soft nontender nondistended positive bowel sounds Extremities: No edema - Labs CBC & Chem 7: 06/03/16 09:35 06/05/16 10:09 Labs: Abnormal Lab Results - Last 24 Hours (Table) 06/04/16 06/04/16 06/05/16 Range/Units 16:51 19:51 06:55 Chloride (98-107) mmol/L BUN (7-17) mg/dL Creatinine (0.52-1.04) mg/dL POC Glucose (mg/dL) 186 H 178 H 143 H (75-99) mg/dL 06/05/16 06/05/16 Range/Units 10:09 12:10 Chloride 95 L (98-107) mmol/L BUN 83 H* (7-17) mg/dL Creatinine 1.58 H (0.52-1.04) mg/dL POC Glucose (mg/dL) 104 H (75-99) mg/dL Assessment and Plan Plan: Acute exacerbation of severe persistent asthma Obesity Acute chest pain, NSTEMI Acute exacerbation of diastolic congestive heart failure Obstructive sleep apnea compliant with CPAP Diabetes mellitus type 2 Dyslipidemia History of breast cancer Hypertension Osteoarthritis GERD O2 to maintain saturation greater than equal to 88% Bronchodilators and Pulmicort, decrease Pulmicort dose back to 0.5 mg twice a day Steroid taper - change to PO Prednisone Monitor labs Antibiotics: Levaquin Singulair Continue Perforomist Continue Mucinex Sputum culture if able to expectorate Influenza negative, and atypical pneumonia negative Incentive spirometry and pulmonary hygiene GI and DVT prophylaxis Plan for [facility] on Tuesday.
--- NOTE | 2016-06-05 13:35 | PN ---
The patient is admitted with COPD exacerbation. Patient's respiratory status significantly improved. Patient is able to cough up quite a bit of phlegm and after that patient felt a lot better and patient is otherwise feeling better clinically regarding that. Patient was also treated for diastolic dysfunction heart failure. Because of the excessive diuresis, her kidney function did worsen. Patient started having chest pain yesterday, can be secondary to uremia too. But anyways, patient has minimal elevation of troponin 0.091, 0.082 and cardiology is recommending a cardiac catheterization on Tuesday. In the meantime, we are awaiting improvement in her kidney function. Lasix is being held at this point of time. Patient's creatinine did improve minimally. BUN went up. REVIEW OF SYSTEMS: CARDIOVASCULAR: No chest pain, no orthopnea, no PND, no palpitations. PULMONARY: Denied any shortness of breath. No cough or hemoptysis. GASTROINTESTINAL: No diarrhea, nausea or vomiting. No abdominal pain. Normoactive bowel sounds. NEUROLOGIC: No headaches, no weakness, no numbness. Medications were reviewed. PHYSICAL EXAMINATION: VITAL SIGNS: Temperature is 97.4, pulse of 80, respiratory rate of 16, blood pressure is 110/56, saturating at 90% on room air. GENERAL: The patient is alert and oriented x3, not in any acute distress. Well developed, well nourished. HEENT: Pupils are round and equally reacting to light. EOMI. No scleral icterus. No conjunctival pallor. Normocephalic, atraumatic. No pharyngeal erythema. No thyromegaly. CARDIOVASCULAR: S1 and S2 present. No murmurs, rubs, or gallops. PULMONARY: Chest is clear to auscultation, no wheezing or crackles. ABDOMEN: Soft, nontender, nondistended, normoactive bowel sounds. No palpable organomegaly. MUSCULOSKELETAL: No joint swelling or deformity. EXTREMITIES: No cyanosis, clubbing, or pedal edema. NEUROLOGICAL: Gross neurological examination did not reveal any focal deficits. SKIN: No rashes. LABORATORY DATA: As mentioned above. ASSESSMENT AND PLAN: 1. Acute exacerbation of asthma. Continue with systemic steroids and inhalational treatments. 2. Chronic diastolic dysfunction with acute exacerbation. 3. Minimally elevated troponins with chest pain. 4. Acute renal failure secondary to excessive diuretic therapy and a possibility of chronic kidney disease stage II. 5. Type 2 diabetes mellitus. 6. Possibility of severe bronchitis. 7. Breast cancer, status post mastectomy. 8. Obstructive sleep apnea. 9. Hypothyroidism. PLAN: As mentioned in the interval history.
[2016-06-05 17:32] LABS: Glucose,Whole Blood 121 mg/dL (75-99)
[2016-06-05 20:10] LABS: Glucose,Whole Blood 164 mg/dL (75-99)
[2016-06-05] MEDS: BUDESONIDE 0.5 MG/2 ML NEBU INHALATION SCH (20:22)
[2016-06-05] MEDS: GABAPENTIN 300 MG CAP PO SCH (21:02)
[2016-06-05] MEDS: LEVOFLOXACIN 250 MG TAB PO SCH (21:03)
[2016-06-05] MEDS: POLYETHYLENE GLYCOL 3350 17 GM POWD.PACK PO SCH (21:03)
[2016-06-05] MEDS: MONTELUKAST 10 MG TAB PO SCH (21:03)
[2016-06-05] MEDS: PROMETHAZ-COD 6.25-10 MG/5 ML 5 ML CUP PO PRN (22:35)
[2016-06-06] MEDS: CHLORPHEN-HYDROcod 8-10mg/5ml 5 ML ORAL.SYRG PO SCH ×2 (02:32→16:02)
[2016-06-06] MEDS: LEVOTHYROXINE 50 MCG TAB PO SCH (06:07)
[2016-06-06 07:19] LABS: Glucose,Whole Blood 97 mg/dL (75-99)
[2016-06-06] MEDS: INSULIN LISPRO (humaLOG) 300 UNIT/3 ML VIAL SQ SCH ×4 (07:28→20:51)
[2016-06-06 07:32] LABS: CH 32.2; CHCM 32.9; HCT 30.7 % (34.0-46.0); HDW 2.05; HGB 10.2 gm/dL (11.4-16.0); MCH 32.8 pg (25.0-35.0); MCHC 33.4 g/dL (31.0-37.0); MCV 98.2 fL (80.0-100.0); Mean Platelet Volume 7.8; RBC 3.12 m/uL (3.80-5.40); RDW 13.7 % (11.5-15.5); WBC 5.7 k/uL (3.8-10.6)
[2016-06-06 07:51] LABS: Calcium 8.7 mg/dL (8.4-10.2); Potassium 5.1 mmol/L (3.5-5.1); Total Bilirubin 0.7 mg/dL (0.2-1.3); Total Protein 5.3 g/dL (6.3-8.2)
[2016-06-06] MEDS: IPRATROPIUM-ALBUTEROL 3 ML NEB INHALATION SCH ×4 (08:17→21:07)
[2016-06-06] MEDS: FORMOTEROL FUMARATE 20 MCG/2 ML NEBU INHALATION SCH ×2 (08:19→21:07)
[2016-06-06] MEDS: BUDESONIDE 0.5 MG/2 ML NEBU INHALATION SCH ×2 (08:19→21:07)
[2016-06-06] MEDS: HEPARIN SODIUM,PORCINE 5,000 UNIT/ML 1 ML VIAL SQ SCH ×3 (09:07→23:25)
[2016-06-06] MEDS: ASPIRIN 81 MG CHEW PO SCH (09:08)
[2016-06-06] MEDS: PIOGLITAZONE 15 MG TAB PO SCH (09:08)
[2016-06-06] MEDS: guaiFENesin 600 MG TABLET.ER PO SCH ×2 (09:08→20:50)
[2016-06-06] MEDS: ATORVASTATIN 10 MG TAB PO SCH (09:08)
[2016-06-06] MEDS: predniSONE 20 MG TAB PO SCH (09:08)
--- NOTE | 2016-06-06 10:42 | XR ---
EXAMINATION TYPE: XR chest 1V DATE OF EXAM: 06/06/2016 10:35 AM COMPARISON: Chest radiograph dated 06/04/2016 HISTORY: COPD, pulmonary edema, and productive cough. TECHNIQUE: Single frontal view of the chest is obtained. FINDINGS: There is no focal air space opacity, pleural effusion, or pneumothorax seen. Left axillary surgical clips are noted as well as bilateral glenohumeral and acromioclavicular arthropathy with de generative changes at the visualized thoracic spine. The cardiac silhouette size is within normal treadwell its. Costophrenic angle obscuration is thought to relate to overlying copious soft tissues. IMPRESSION: No acute process, unchanged from the prior exam.
[2016-06-06 11:37] LABS: Glucose,Whole Blood 152 mg/dL (75-99)
--- NOTE | 2016-06-06 11:55 | P.PN ---
Subjective Principal diagnosis: Acute exacerbation of asthma Patient seen and examined. Patient states that her breathing is a little bit better today. She is still coughing. Plan is for left heart catheterization tomorrow. Patient states she's having difficulty expectorating her sputum. Objective - Vital Signs Vital signs: Vital Signs Temp 98.2 F 06/06/16 07:00 Pulse 72 06/06/16 11:44 Resp 18 06/06/16 08:00 BP 101/47 06/06/16 07:00 Pulse Ox 93 L 06/06/16 07:00 Intake & Output 06/05/16 06/06/16 06/06/16 18:59 06:59 18:59 Intake Total 540 Balance 540 Intake: Oral 540 Other: Voiding Method Toilet Toilet Toilet Diaper Diaper Diaper Incontinent Incontinent Incontinent # Voids 3 1 # Bowel Movements 1 - Exam Gen.: Patient is alert and oriented 3, no acute distress Cardiovascular: Regular rate and rhythm, S1/S2 Lungs: Scattered expiratory wheezing, markedly improved aeration bilaterally Abdomen: Soft nontender nondistended positive bowel sounds Extremities: No edema - Labs CBC & Chem 7: 06/06/16 06:55 06/06/16 06:55 Labs: Abnormal Lab Results - Last 24 Hours (Table) 06/05/16 06/05/16 06/05/16 Range/Units 12:10 17:30 19:58 RBC (3.80-5.40) m/uL Hgb (11.4-16.0) gm/dL Hct (34.0-46.0) % Plt Count (150-450) k/uL Sodium (137-145) mmol/L Carbon Dioxide (22-30) mmol/L BUN (7-17) mg/dL Creatinine (0.52-1.04) mg/dL POC Glucose (mg/dL) 104 H 121 H 164 H (75-99) mg/dL Total Protein (6.3-8.2) g/dL Albumin (3.5-5.0) g/dL 06/06/16 06/06/16 06/06/16 Range/Units 06:55 06:55 11:36 RBC 3.12 L (3.80-5.40) m/uL Hgb 10.2 L (11.4-16.0) gm/dL Hct 30.7 L (34.0-46.0) % Plt Count 124 L (150-450) k/uL Sodium 135 L (137-145) mmol/L Carbon Dioxide 31 H (22-30) mmol/L BUN 89 H* (7-17) mg/dL Creatinine 1.79 H (0.52-1.04) mg/dL POC Glucose (mg/dL) 152 H (75-99) mg/dL Total Protein 5.3 L (6.3-8.2) g/dL Albumin 3.1 L (3.5-5.0) g/dL Assessment and Plan Plan: Acute exacerbation of severe persistent asthma, improving Obesity Acute chest pain, NSTEMI Acute exacerbation of diastolic congestive heart failure Acute kidney injury Obstructive sleep apnea compliant with CPAP Diabetes mellitus type 2 Dyslipidemia History of breast cancer Hypertension Osteoarthritis GERD O2 to maintain saturation greater than equal to 88% Bronchodilators and Pulmicort Prednisone taper Monitor labs Antibiotics: Levaquin Singulair Continue Perforomist Continue Mucinex Sputum culture if able to expectorate Influenza negative, and atypical pneumonia negative Incentive spirometry and pulmonary hygiene GI and DVT prophylaxis Plan for [facility] on Tuesday. Flutter therapy
[2016-06-06] MEDS: MULTIVITAMINS, THERA 1 EACH TAB PO SCH (12:22)
--- NOTE | 2016-06-06 14:09 | PN ---
Patient is admitted with COPD exacerbation and patient has significant clinical improvement regarding that. Patient was also treated for congestive heart failure, chronic diastolic dysfunction. Patient was a little bit dazed and patient went into renal failure and I will give her gentle hydration with close monitoring of vitals and also a repeat chest x-ray. As patient is going for cardiac catheterization tomorrow, her chest pain has been well evaluated and troponins. REVIEW OF SYSTEMS: CARDIOVASCULAR: No chest pain, no orthopnea, no PND, no palpitations. PULMONARY: Denied any shortness of breath. No cough or hemoptysis. GASTROINTESTINAL: No diarrhea, nausea or vomiting. No abdominal pain. Normoactive bowel sounds. NEUROLOGIC: No headaches, no weakness, no numbness. Medications were reviewed. PHYSICAL EXAMINATION: VITAL SIGNS: Temperature 98.2, pulse of 74, respiratory rate of 18, blood pressure is 101/47, saturating at 93% on room air. GENERAL: The patient is alert and oriented x3, not in any acute distress. Well developed, well nourished. HEENT: Pupils are round and equally reacting to light. EOMI. No scleral icterus. No conjunctival pallor. Normocephalic, atraumatic. No pharyngeal erythema. No thyromegaly. CARDIOVASCULAR: S1 and S2 present. No murmurs, rubs, or gallops. PULMONARY: Chest is clear to auscultation, no wheezing or crackles. ABDOMEN: Soft, nontender, nondistended, normoactive bowel sounds. No palpable organomegaly. MUSCULOSKELETAL: No joint swelling or deformity. EXTREMITIES: No cyanosis, clubbing, or pedal edema. NEUROLOGICAL: Gross neurological examination did not reveal any focal deficits. SKIN: No rashes. LABORATORY DATA: Continued elevation of BUN and creatinine of 89 and 1.79 and her chest pain can be from uremia too and sodium of 135. ASSESSMENT AND PLAN: 1. Acute exacerbation of asthma and chronic obstructive pulmonary disease, continue systemic steroids, inhalational treatments. 2. Chronic diastolic dysfunction with acute exacerbation, patient is presently hypovolemic, receiving IV fluids. 3. Acute kidney injury secondary to excessive diuretic therapy. Patient also may have chronic kidney disease stage II. 4. Minimally elevated troponins and chest pain. 5. Bronchitis versus atypical pneumonia. 6. Breast cancer, status post mastectomy. 7. Obstructive sleep apnea. 8. Hypothyroidism. 9. Chest pain. Patient is undergoing cardiac catheterization tomorrow. The chest pain can be from uremia too. IV fluids as mentioned above. Close clinical monitoring. Obtain a chest x-ray.
[2016-06-06 16:49] LABS: Glucose,Whole Blood 209 mg/dL (75-99)
[2016-06-06] MEDS ORDERED: SODIUM CHLORIDE 0.9% 1,000 ML IV SCH (19:00)
[2016-06-06 20:19] LABS: Glucose,Whole Blood 181 mg/dL (75-99)
[2016-06-06] MEDS: GABAPENTIN 300 MG CAP PO SCH (20:49)
[2016-06-06] MEDS: POLYETHYLENE GLYCOL 3350 17 GM POWD.PACK PO SCH (20:49)
[2016-06-06] MEDS: MONTELUKAST 10 MG TAB PO SCH (20:50)
[2016-06-06] MEDS: LEVOFLOXACIN 250 MG TAB PO SCH (20:50)
[2016-06-07] MEDS: CHLORPHEN-HYDROcod 8-10mg/5ml 5 ML ORAL.SYRG PO SCH ×2 (01:59→13:06)
[2016-06-07] MEDS: LEVOTHYROXINE 50 MCG TAB PO SCH (05:43)
[2016-06-07] MEDS ORDERED: ATORVASTATIN 80 MG TAB PO ONE (06:00)
[2016-06-07] MEDS ORDERED: SODIUM CHLORIDE 0.9% 1,000 ML in EMPTY BAG 1 BAG IV ONE (06:00)
[2016-06-07] MEDS ORDERED: ASPIRIN 325 MG TAB PO ONE (06:00)
[2016-06-07] MEDS: IPRATROPIUM-ALBUTEROL 3 ML NEB INHALATION SCH ×4 (07:13→19:10)
[2016-06-07] MEDS: FORMOTEROL FUMARATE 20 MCG/2 ML NEBU INHALATION SCH ×2 (07:15→19:10)
[2016-06-07] MEDS: BUDESONIDE 0.5 MG/2 ML NEBU INHALATION SCH ×2 (07:15→19:10)
[2016-06-07 07:20] LABS: Glucose,Whole Blood 83 mg/dL (75-99)
[2016-06-07] MEDS: HEPARIN SODIUM,PORCINE 5,000 UNIT/ML 1 ML VIAL SQ SCH ×3 (07:50→23:52)
[2016-06-07] MEDS: ASPIRIN 81 MG CHEW PO SCH (08:01)
[2016-06-07] MEDS: INSULIN LISPRO (humaLOG) 300 UNIT/3 ML VIAL SQ SCH ×4 (08:08→20:25)
--- NOTE | 2016-06-07 10:04 | P.PN ---
Progress Note - Text This is a pleasant 75-year-old female patient who I follow in the office as an outpatient with a known history of hypertension, diabetes, dyslipidemia, and chronic kidney disease, was admitted to the hospital with COPD exacerbation. We get involved in the care of the patient because she had chest discomfort yesterday. She was sitting in her bed when she developed chest discomfort in the middle of the chest as a sharp kind of discomfort with some radiation to the neck. The EKG did not show any significant ST or T-wave abnormalities consistent with ischemia. She underwent 3 sets of cardiac enzymes with the first set came in to be normal and the second obtuse ischemic to be abnormal. The patient continues to be pain-free after that episode yesterday. She underwent a stress test about a year ago as an outpatient and that was unremarkable. During her hospitalization she underwent an echocardiogram which showed normal LV function. The initial plan was to proceed with heart catheterization but unfortunately the patient's creatinine continues to be getting worse. In review of that I recommended proceeding with a conservative medical approach and I will follow-up with the patient as an outpatient. Please note that the patient did not have any chest pain over the weekend.
[2016-06-07] MEDS: guaiFENesin 600 MG TABLET.ER PO SCH ×2 (10:39→20:24)
[2016-06-07] MEDS: predniSONE 20 MG TAB PO SCH (10:39)
[2016-06-07] MEDS: ATORVASTATIN 10 MG TAB PO SCH (10:40)
[2016-06-07] MEDS: PIOGLITAZONE 15 MG TAB PO SCH (10:40)
[2016-06-07 12:09] LABS: Glucose,Whole Blood 153 mg/dL (75-99)
--- NOTE | 2016-06-07 12:24 | P.PN ---
Subjective Principal diagnosis: AE Asthma Patient seen and examined. Patient states her breathing is getting a little better. She is using flutter valve and is able to expectorate brown thick phlegm. She denies fevers, chills. She states overall she is feeling better. Objective - Vital Signs Vital signs: Vital Signs Temp 98.2 F 06/07/16 07:00 Pulse 80 06/07/16 11:14 Resp 17 06/07/16 08:00 BP 135/62 06/07/16 07:00 Pulse Ox 94 L 06/07/16 07:00 Intake & Output 06/06/16 06/07/16 06/07/16 18:59 06:59 18:59 Intake Total 240 Balance 240 Intake: Oral 240 Other: Voiding Method Toilet Toilet Toilet Diaper Diaper Diaper Incontinent Incontinent Incontinent # Voids 4 2 - Exam Gen.: Patient is alert and oriented 3, no acute distress Cardiovascular: Regular rate and rhythm, S1/S2 Lungs: Scattered expiratory wheezing, markedly improved aeration bilaterally Abdomen: Soft nontender nondistended positive bowel sounds Extremities: No edema - Labs CBC & Chem 7: 06/06/16 06:55 06/06/16 06:55 Labs: Abnormal Lab Results - Last 24 Hours (Table) 06/06/16 06/06/16 06/07/16 Range/Units 16:47 20:18 12:03 POC Glucose (mg/dL) 209 H 181 H 153 H (75-99) mg/dL Assessment and Plan Plan: Acute exacerbation of severe persistent asthma, improving Obesity Acute chest pain, NSTEMI Acute exacerbation of diastolic congestive heart failure Acute kidney injury Obstructive sleep apnea compliant with CPAP Diabetes mellitus type 2 Dyslipidemia History of breast cancer Hypertension Osteoarthritis GERD O2 to maintain saturation greater than equal to 88% Bronchodilators and Pulmicort Prednisone taper Monitor labs Antibiotics: Levaquin Singulair Continue Perforomist Continue Mucinex Sputum culture if able to expectorate Influenza negative, and atypical pneumonia negative Incentive spirometry and pulmonary hygiene GI and DVT prophylaxis LHC on hold due to patient's renal function, plan for outpatient follow up Flutter therapy OK to DC from pulmonary standpoint.
[2016-06-07] MEDS: LACTATED RINGERS 1,000 ML IV SCH (12:58)
[2016-06-07] MEDS: MULTIVITAMINS, THERA 1 EACH TAB PO SCH (13:08)
--- NOTE | 2016-06-07 13:40 | PN ---
DATE OF SERVICE: 06/06/2016 A pleasant 75-year-old lady who is in the hospital, had mild troponin elevation and is to undergo cardiac catheterization by my associate, Dr. Gallo and is currently being hydrated for the same. Patient will be hydrated overnight. At the time of my evaluation, she is pain free, hemodynamically stable. She had questions about the procedure, which I answered at length. I have reviewed her labs, BUN and creatinine are elevated. Her exam remains unchanged.
--- NOTE | 2016-06-07 16:18 | P.PN ---
Subjective Date of service 06/07/2016 Progress note being dictated for Dr. bahena Interval history: This is a 75-year-old female admitted with acute exacerbation of COPD, asthma, acute exacerbation of CHF, acute renal failure secondary to diuretic therapy, chest pain with mildly elevated troponins and multiple other medical issues. Reporting productive cough with brownish sputum. Breathing improving. Hydrated overnight,renal function continued to decline. Cardiac catheterization canceled as per cardiology, conservative management recommended. Chest x-ray reporting no acute process, unchanged. Denies chest pain, palpitations or increasing shortness of breath. Objective - Vital Signs Vital signs: Vital Signs Temp 97.8 F 06/07/16 15:00 Pulse 72 06/07/16 15:12 Resp 18 06/07/16 15:00 BP 135/63 06/07/16 15:00 Pulse Ox 93 L 06/07/16 15:00 Intake & Output 06/06/16 06/07/16 06/07/16 18:59 06:59 18:59 Intake Total 240 660 Balance 240 660 Intake: Intake, IV Titration 660 Amount Sodium Chloride 0.9% 1, 660 000 ml In Empty Bag 1 bag @ 1 ML/KG/HR 110.22 mls/ hr IV .Q9H5M ONE Rx#: [id number] Oral 240 Other: Voiding Method Toilet Toilet Toilet Diaper Diaper Diaper Incontinent Incontinent Incontinent # Voids 4 2 2 # Bowel Movements 1 - Exam PHYSICAL EXAM: VITAL SIGNS: As above GENERAL: [Lying in bed, no acute distress] HEENT: [Pupils equal conjunctiva normal.] NECK: [Supple, no JVD] RESPIRATORY EFFORT:[Normal] LUNGS: bilateral expiratory wheezing scattered, no crackles] CARDIOVASCULAR[regular S1 and S2, no murmurs, rubs or gallops] GI: [Abdomen soft, nontender, positive bowel sounds.] PSYCH: [Alert and oriented -3, mood and affect normal.] NEURO: No focal deficits - Labs CBC & Chem 7: 06/06/16 06:55 06/06/16 06:55 Labs: Abnormal Lab Results - Last 24 Hours (Table) 06/06/16 06/06/16 06/07/16 Range/Units 16:47 20:18 12:03 POC Glucose (mg/dL) 209 H 181 H 153 H (75-99) mg/dL Assessment and Plan Plan: 1. Acute exacerbation of severe persistent asthma and COPD. 2. Acute on chronic CHF exacerbation, diastolic dysfunction, currently hypovolemic. 3. [Acute renal failure secondary to diuresing, worsening]. 4. [Chest pain with minimally elevated troponins, initially scheduled for cardiac catheterization which has been canceled given worsening renal function]. 5. [Acute Bronchitis versus atypical pneumonia]. 6. [History of breast cancer, status post mastectomy]. 7. Obstructive sleep apnea. 8. Hypothyroidism Plan: Continue on current medication regime ,monitoring and symptomatic treatment. Fluids of LR initiated at 100 MLS an hour given worsening renal function. Close monitoring of renal function with repeat labs ordered for a.m. discharge planning in progress for tomorrow pending improvement in renal function. The impression and plan of care has been dictated as directed. : I performed a H&P examination of this patient and discussed the same with the dictator. I agree with the dictator's note. Any additional findings/opinions/ etc. will be noted.
[2016-06-07] MEDS: HYDROcodone/APAP 10-325MG 1 EACH TAB PO PRN (16:24)
[2016-06-07 17:28] LABS: Glucose,Whole Blood 190 mg/dL (75-99)
[2016-06-07 20:17] LABS: Glucose,Whole Blood 209 mg/dL (75-99)
[2016-06-07] MEDS: POLYETHYLENE GLYCOL 3350 17 GM POWD.PACK PO SCH (20:23)
[2016-06-07] MEDS: LEVOFLOXACIN 250 MG TAB PO SCH (20:24)
[2016-06-07] MEDS: MONTELUKAST 10 MG TAB PO SCH (20:24)
[2016-06-07] MEDS: GABAPENTIN 300 MG CAP PO SCH (20:24)
[2016-06-07] MEDS: PROMETHAZ-COD 6.25-10 MG/5 ML 5 ML CUP PO PRN (22:22)
[2016-06-08] MEDS: CHLORPHEN-HYDROcod 8-10mg/5ml 5 ML ORAL.SYRG PO SCH ×2 (02:14→14:03)
[2016-06-08] MEDS: LACTATED RINGERS 1,000 ML IV SCH ×2 (02:14→12:46)
[2016-06-08] MEDS: LEVOTHYROXINE 50 MCG TAB PO SCH (04:40)
[2016-06-08] MEDS: FORMOTEROL FUMARATE 20 MCG/2 ML NEBU INHALATION SCH (07:23)
[2016-06-08] MEDS: BUDESONIDE 0.5 MG/2 ML NEBU INHALATION SCH (07:23)
[2016-06-08] MEDS: IPRATROPIUM-ALBUTEROL 3 ML NEB INHALATION SCH ×2 (07:23→11:23)
[2016-06-08] MEDS: HEPARIN SODIUM,PORCINE 5,000 UNIT/ML 1 ML VIAL SQ SCH (07:35)
[2016-06-08] MEDS: ASPIRIN 81 MG CHEW PO SCH (07:35)
[2016-06-08] MEDS: guaiFENesin 600 MG TABLET.ER PO SCH (07:36)
[2016-06-08] MEDS: ATORVASTATIN 10 MG TAB PO SCH (07:36)
[2016-06-08] MEDS: predniSONE 20 MG TAB PO SCH (07:36)
[2016-06-08] MEDS: PIOGLITAZONE 15 MG TAB PO SCH (07:36)
[2016-06-08] MEDS: INSULIN LISPRO (humaLOG) 300 UNIT/3 ML VIAL SQ SCH ×2 (07:37→12:47)
[2016-06-08 07:45] LABS: Glucose,Whole Blood 111 mg/dL (75-99)
[2016-06-08 07:53] VITALS: BP 140/62; RESP 16; TEMP 97.9
[2016-06-08 09:49] LABS: Basophils % (A) 0 %; CH 32.6; CHCM 33.3; Eosinophils % (A) 0 %; HCT 31.1 % (34.0-46.0); HDW 2.15; Luc # (Auto) 0.07; Luc % (Auto) 1; Lymphocytes % (A) 10 %; MCH 31.7 pg (25.0-35.0); MCHC 32.2 g/dL (31.0-37.0); MCV 98.4 fL (80.0-100.0); Mean Platelet Volume 9.1; Monocytes # (A) 0.4 k/uL (0-1.0); Monocytes % (A) 4 %; Neutrophils # (A) 8.7 k/uL (1.3-7.7); Neutrophils % (A) 85 %; RBC 3.16 m/uL (3.80-5.40); RDW 13.9 % (11.5-15.5); WBC 10.2 k/uL (3.8-10.6); WBC (Perox) 9.71
[2016-06-08 10:42] LABS: Calcium 9.1 mg/dL (8.4-10.2); Potassium 4.8 mmol/L (3.5-5.1)
[2016-06-08 11:29] VITALS: PULSE 88
[2016-06-08 11:56] LABS: Glucose,Whole Blood 141 mg/dL (75-99)
[2016-06-08] MEDS: MULTIVITAMINS, THERA 1 EACH TAB PO SCH (12:47)
--- NOTE | 2016-06-08 15:27 | P.DS ---
Providers Date of admission: 05/28/16 16:57 Expected date of discharge: 06/08/16 Attending physician: Jl Arvizu Consults: 06/04/16 02:32 Consult Physician Routine Consulting Provider: Phu Gallo Consult Reason/Comments: chest pain Do you want consulting provider notified?: Yes Dr. Gar, Pulmonary Primary care physician: Rosalba Mitchell [facility] Course: Final Diagnoses: 1. Acute exacerbation of severe persistent asthma and COPD. 2. Acute on chronic CHF exacerbation, diastolic dysfunction, currently hypovolemic. 3. [Acute renal failure secondary to diuresing, improved with hydration]. 4. [Chest pain with minimally elevated troponins, possibly related to uremia. Cardiac enzyme series, EKG review per cardiology not consistent with ischemia, conservative management at this time with F/U outpatient per cardiology. 5. [Acute Bronchitis,possible atypical pneumonia]. 6. [History of breast cancer, status post mastectomy]. 7. Obstructive sleep apnea. 8. Hypothyroidism Hospital course:This is a 75-year-old female admitted with acute exacerbation of COPD, asthma, acute exacerbation of CHF, acute renal failure secondary to diuretic therapy, chest pain with mildly elevated troponins and multiple other medical issues. Significant clinical improvement with improved breathing, no further chest pain. EKG reviewed by cardiology , reporting no significant ST or T-wave abnormalities consistent with ischemia. Troponins less than 0.012, 0.091, 0.082. Echo reported normal LV function. Renal function worsened secondary to diuretics. Initially scheduled for cardiac catheterization, canceled as per cardiology r/t worsening renal function with conservative management recommended at this time. Renal function continued to improve with IV fluid hydration. Further outpatient follow-up with cardiology, once pulmonary status improved.Chest x-ray reporting no acute process, unchanged. Cleared for discharge by pulmonary and cardiology. Patient is being discharged home in a stable condition with guarded prognosis. Patient Condition at Discharge: Stable Plan - Discharge Summary New Discharge Prescriptions: CHLORPHEN-HYDROcod 8-10mg/5ml [Tussionex] 5 ml PO Q12H #100 ml Levofloxacin [Levaquin] 250 mg PO HS #5 tab Montelukast [Singulair] 10 mg PO HS #30 tab predniSONE 10 mg PO DIRECTED #30 tab Discharge Medication List Ergocalciferol [Vitamin D2 (DRISDOL)] 50,000 unit PO Q14D 10/23/14 [History] Levothyroxine Sodium [Synthroid] 50 mcg PO DAILY 10/23/14 [History] Pioglitazone [Actos] 45 mg PO DAILY 10/23/14 [History] Rosuvastatin [Crestor] 5 mg PO DAILY 10/23/14 [History] ALPRAZolam [Xanax] 0.25 mg PO HS PRN 12/23/15 [History] Aspirin 81 mg PO DAILY 12/23/15 [History] Budesonide [Pulmicort] 0.5 mg INHALATION RT-BID PRN 12/23/15 [History] D-Mannose 500 mg PO DAILY 12/23/15 [History] Multivitamins, Thera [Multivitamin] 1 tab PO DAILY 12/23/15 [History] Vitamin B Complex 1 cap PO DAILY 12/23/15 [History] Gabapentin [Neurontin] 300 mg PO HS 05/28/16 [History] traMADol HCL [Ultram] 50 mg PO Q6HR PRN 05/28/16 [History] Albuterol Nebulized [Ventolin Nebulized] 2.5 mg INHALATION RT-Q6H #0 06/08/16 [ Rx] CHLORPHEN-HYDROcod 8-10mg/5ml [Tussionex] 5 ml PO Q12H #100 ml 06/08/16 [Rx] Levofloxacin [Levaquin] 250 mg PO HS #5 tab 06/08/16 [Rx] Montelukast [Singulair] 10 mg PO HS #30 tab 06/08/16 [Rx] guaiFENesin [Mucinex] 600 mg PO Q12HR #0 tablet.er 06/08/16 [Rx] predniSONE 10 mg PO DIRECTED #30 tab 06/08/16 [Rx] Follow up Appointment(s)/Referral(s): Phu Gallo MD [STAFF PHYSICIAN] - 06/18/16 3:30 pm Jessie Gar DO [Doctor of Osteopathic Medicine] - 06/22/16 9:00 am Rosalba Medrano MD [Primary Care Provider] - 06/14/16 12:00 pm Ambulatory/Diagnostic Orders: Complete Blood Count w/diff [LAB.AMB] Time Frame: 3 Days, Location: Determined By Patient Patient Instructions/Handouts: Prednisone (By mouth), Levofloxacin (By mouth), Montelukast (By mouth), Narcotic-Antitussive/Antihistamine (By mouth), Acute Kidney Injury (DC), COPD (Chronic Obstructive Pulmonary Disease) (DC) Activity/Diet/Wound Care/Special Instructions: Lasix and Zestoretic on hold r/t renal function, re-eval at OP F/U with PCP & Pulmonary Diet: Cardiac/Consistent carb Activity: limited TIll F/U Blood work with CBC and BMP Discharge Disposition: HOME SELF-CARE
[2016-06-09] MEDS ORDERED: ERGOCALCIFEROL 50,000 UNIT CAP PO SCH (09:00)
== END 2016-06-08 14:30 | disposition home or self-care (01) | DRG 190 ==
LOC: EC 14:33 → 5MS5E 16:57
PROVIDERS: ADMIT Hospitalist; ATTEND Hospitalist
DX: J44.0 Chronic obstructive pulmonary disease with (acute) lower respiratory infection (principal); I50.33 Acute on chronic diastolic (congestive) heart failure; N17.9 Acute kidney failure, unspecified; J18.9 Pneumonia, unspecified organism; E11.22 Type 2 diabetes mellitus with diabetic chronic kidney disease; J45.51 Severe persistent asthma with (acute) exacerbation; I13.0 Hypertensive heart and chronic kidney disease with heart failure and stage 1 through stage 4 chronic kidney disease, or unspecified chronic kidney disease; N18.3 Chronic kidney disease, stage 3 (moderate); K21.9 Gastro-esophageal reflux disease without esophagitis; E86.1 Hypovolemia; J20.9 Acute bronchitis, unspecified; J44.1 Chronic obstructive pulmonary disease with (acute) exacerbation; M19.90 Unspecified osteoarthritis, unspecified site; E03.9 Hypothyroidism, unspecified; E78.5 Hyperlipidemia, unspecified; G47.33 Obstructive sleep apnea (adult) (pediatric); H40.9 Unspecified glaucoma; T50.2X5A Adverse effect of carbonic-anhydrase inhibitors, benzothiadiazides and other diuretics, initial encounter; Z79.82 Long term (current) use of aspirin; Z79.899 Other long term (current) drug therapy; Z82.49 Family history of ischemic heart disease and other diseases of the circulatory system; Z82.5 Family history of asthma and other chronic lower respiratory diseases; Z85.3 Personal history of malignant neoplasm of breast; Z87.891 Personal history of nicotine dependence; Z90.10 Acquired absence of unspecified breast and nipple; Z91.041 Radiographic dye allergy status
CPT/HCPCS: 36415; 71010; 71020; 78582; 80048; 80053; 82550; 82553; 83036; 83735; 83880; 84484; 85025; 85027; 85379; 85610; 85730; 86738; 87449; 87502; 93005; 93306; 93970; 94640; 94667; 94760; 96365; 96375; 99285

== ENCOUNTER 2016-07-05 08:10 | Day surgery (SDC) | payer MEDICARE, BC ==
[2016-06-30 15:30] VITALS: BMI 38.0
[~2016-07-05 08:10] MED LIST: ALPRAZolam 0.25 MG TAB PO PRN; ALPRAZolam 0.5 MG TAB PO PRN; ASPIRIN 325 MG TAB PO STA; ATORVASTATIN 80 MG TAB PO STA; NITROGLYCERIN SL TABS 0.4 MG TAB SUBLINGUAL PRN; SODIUM CHLORIDE 0.9% 1,000 ML in EMPTY BAG 1 BAG IV ONE
[2016-07-05 08:53] LABS: Glucose,Whole Blood 98 mg/dL (75-99)
[2016-07-05 09:16] VITALS: PULSE 61; RESP 20; TEMP 97.7
[2016-07-05] MEDS ORDERED: MIDAZOLAM 2 MG/2 ML VIAL IV ONE (12:24)
[2016-07-05] MEDS ORDERED: LIDOCAINE 2% INJ 20 MG/ML SQ ONE (12:27)
[2016-07-05] MEDS: VERAPAMIL SYRINGE (5 MG/10 ML) INTRAARTER ONE ×2 (12:29→12:40)
[2016-07-05] MEDS ORDERED: IODIXANOL 320 MG/ML 100 ML INTRAARTER ONE (12:42)
[2016-07-05] MEDS ORDERED: SODIUM CHLORIDE 0.9% 1,000 ML IV SCH (12:45)
[2016-07-05] MEDS ORDERED: RX INFO: IV CONTRAST WAS GIVEN 1 EACH MISC MISCELLANE PRN (12:45)
[2016-07-05 17:17] LABS: Glucose,Whole Blood 81 mg/dL (75-99)
[2016-07-05 18:25] VITALS: BP 130/70
--- NOTE | 2016-07-06 09:13 | LTR ---
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 She has mild disease involving the left circumflex and right coronary artery. Maximized medical treatment is recommended at this point of time. Thank you for allowing me to participate in her care and please do not hesitate to call if you have any questions or concerns. Sincerely, ALEJANDRO KAT MD
--- NOTE | 2016-07-06 09:31 | CC ---
DATE OF SERVICE: PERFORMING PHYSICIAN: Amor Goldsmith, [employer] Fabrication Technician. PROCEDURE PERFORMED: Selective right and left coronary angiogram. INDICATION: This is a pleasant 75-year-old female patient with a known diabetes, hypertension, dyslipidemia and chronic kidney disease, was admitted to the hospital recently with acute [id number] myocardial infarction. In view of her for her chronic kidney disease, we decided to pursue medical treatment. The patient continues to have chest comfort. I decided to pursue a heart catheterization to rule out any severe underlying CAD. APPROACH: Right radial artery. COMPLICATIONS: None. LEVEL OF SEDATION: Moderate with a sedation length of 30 minutes. PROCEDURE DESCRIPTION: After obtaining an informed consent, the patient was brought to the [facility] Work [facility]. The right radial artery was cannulated using micropuncture technique. The micropuncture wire passed easily, then I placed a 6 Czech sheath in the right radial artery. Subsequently, I gave the patient 2 mg of verapamil IA and 5000 units of heparin IV. Then I did selective right and left coronary angiogram, using JR4 and JL3.5 catheters. The procedure was completed without any complication. SELECTIVE CORONARY ANGIOGRAM: 1. Right coronary artery is a large-caliber vessel and it is a dominant vessel. The right coronary artery appeared to be angiographically normal. Distally bifurcates into PDA and PLV branches; both are angiographically normal. 2. The left main has mild disease only. It bifurcates into the left circumflex and left anterior descending artery. 3. The left circumflex is a large-caliber vessel and it is a nondominant vessel. The proximal left circumflex appeared to be angiographically normal and gives rises into first OM branch, which is a large-caliber vessel, seems to be angiographically normally. The mid left circumflex is tortuous, but angiographically normal and gives rises into the second OM branch, which appeared to be angiographically normal. The left circumflex distally continues as a small-caliber vessel in the AV groove. 4. Left anterior descending artery. The proximal left anterior descending artery appeared to be calcified with mild disease only. The mid LAD seems to be chronically and totally occluded and fills by collateral from the left and right coronary system. CONCLUSION: 1. Calcified right and left coronary system. 2. 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 Postprocedure management will be medical treatment.
== END 2016-07-05 18:25 | disposition home or self-care (01) ==
LOC: CATHCVL 08:10
PROVIDERS: ATTEND Internal Medicine Interventional Cardiology
DX: I25.10 Atherosclerotic heart disease of native coronary artery without angina pectoris (principal); I25.84 Coronary atherosclerosis due to calcified coronary lesion; I25.82 Chronic total occlusion of coronary artery; I10 Essential (primary) hypertension; I77.1 Stricture of artery; Z87.891 Personal history of nicotine dependence; E78.5 Hyperlipidemia, unspecified; E11.9 Type 2 diabetes mellitus without complications; Z79.84 Long term (current) use of oral hypoglycemic drugs; I73.9 Peripheral vascular disease, unspecified; Z79.82 Long term (current) use of aspirin; Z79.51 Long term (current) use of inhaled steroids; Z79.52 Long term (current) use of systemic steroids; Z79.899 Other long term (current) drug therapy
CPT/HCPCS: 93458; C1769; C1894; J2001; J2250; Q9967; J1644

== ENCOUNTER → 2016-08-12 | Outpatient (CLI) | payer MEDICARE, BC ==
--- NOTE | 2016-08-12 10:55 | US ---
EXAMINATION TYPE: US kidneys/renal and bladder DATE OF EXAM: 08/12/2016 10:38 AM COMPARISON: NONE CLINICAL HISTORY: large body habitus, limited visualization N18.3 CKD Stage 3. EXAM MEASUREMENTS: Right Kidney: 9.0 x 3.6 x 4.4 cm Left Kidney: 9.5 x 4.2 x 4.9 cm Post Void Residual Volume: 3.6 mL Right Kidney: No hydronephrosis or masses seen large body habitus, limited visualization Left Kidney: No hydronephrosis or masses seen large body habitus, limited visualization Bladder: wnl Bilateral Jets seen: Yes Normal Post Void Residual: Yes There is no evidence for hydronephrosis at this point in time. No nephrolithiasis is seen. No kenan s are identified. The urinary bladder is anechoic. Bilateral ureteral jets are seen. IMPRESSION: 1. Normal renal ultrasound
== END | disposition home or self-care (01) ==
LOC: RADUSWWP 10:14
PROVIDERS: ATTEND Internal Medicine Nephrology
DX: N18.3 Chronic kidney disease, stage 3 (moderate) (principal)
CPT/HCPCS: 76770

== ENCOUNTER 2016-10-15 18:55 | Emergency (ER) | payer MEDICARE, BC ==
[2016-10-15 19:02] VITALS: BP 132/89; PULSE 81; RESP 18; TEMP 97.3
[2016-10-15] MEDS ORDERED: NITROFURANTOIN MONOHYD/M-CRYST 100 MG CAP PO STA (19:27)
--- NOTE | 2016-10-15 19:33 | ED ---
Female Urogenital HPI - General Chief complaint: Urogenital Stated complaint: poss UTI Time Seen by Provider: 10/15/16 19:05 Source: patient Mode of arrival: ambulatory Limitations: no limitations - History of Present Illness Initial comments: Patient is a 76-year-old female presenting to the emergency department with complaints of possible urinary tract infection. Patient has a history of frequent urinary tract infections and was recently treated 3 weeks ago for a new tract infection with ciprofloxacin. Patient states that she was grooming a dog this afternoon when she starting having dysuria. No history of fevers, chills, shortness of breath, chest pain, or abdominal pain. Patient denies vaginal discharge. Patient denies lower back pain. Patient started Pyridium prior to arrival. Patient states she bowel some water when his symptoms started. - Related Data Home Medications Medication Instructions Recorded Confirmed Ergocalciferol [Vitamin D2 50,000 unit PO Q14D 10/23/14 07/05/16 (DRISDOL)] Levothyroxine Sodium [Synthroid] 50 mcg PO DAILY 10/23/14 06/30/16 Pioglitazone [Actos] 45 mg PO DAILY 10/23/14 06/30/16 Rosuvastatin [Crestor] 5 mg PO DAILY 10/23/14 06/30/16 ALPRAZolam [Xanax] 0.25 mg PO HS PRN 12/23/15 07/05/16 Aspirin 81 mg PO DAILY 12/23/15 07/05/16 Budesonide [Pulmicort] 0.5 mg INHALATION BID PRN 12/23/15 07/05/16 Multivitamins, Thera [Multivitamin 1 tab PO DAILY 12/23/15 07/05/16 (formulary)] Vitamin B Complex 1 cap PO DAILY 12/23/15 07/05/16 Gabapentin [Neurontin] 300 mg PO HS 05/28/16 06/30/16 Albuterol Nebulized [Ventolin 2.5 mg INHALATION DIRECTED 06/30/16 06/30/16 Nebulized] Lisinopril-Hctz 10-12.5 mg 1 tab PO DAILY 06/30/16 06/30/16 [Zestoretic 10-12.5] Polyethylene Glycol 3350 [Miralax] 17 gm PO DAILY 06/30/16 07/05/16 Vitamin B-12 (Unknown Dose) 1 tab PO DAILY 06/30/16 07/05/16 Previous Rx's Medication Instructions Recorded Nitrofurantoin Monohyd/M-Cryst 100 mg PO Q12HR #10 cap 10/15/16 [Macrobid] Allergies Allergy/AdvReac Type Severity Reaction Status Date / Time brimonidine [From Alphagan P] Allergy Unknown ALLERGY TO Verified 10/15/16 19:02 EYE GTTS- RED & ITCHY EYES. EKG ELECTRODES AdvReac Unknown Rash/Hives Uncoded 10/15/16 19:02 Review of Systems ROS Statement: Those systems with pertinent positive or pertinent negative responses have been documented in the HPI. ROS Other: All systems not noted in ROS Statement are negative. Past Medical History Past Medical History: Cancer, Chest Pain / Angina, COPD, Diabetes Mellitus, Eye Disorder, GERD/Reflux, Hyperlipidemia, Hypertension, Osteoarthritis (OA), Pneumonia, Renal Disease, Sleep Apnea/CPAP/BIPAP, Thyroid Disorder Additional Past Medical History / Comment(s): HX BREAST CANCER WITH CHEMO(1999) , DIVERTICULOSIS, SCIATIC NERVE PAIN, GLAUCOMA, HX OF ANEMIA WITH IRON TRANSFUSIONS. , MIGRAINES ., STATES EDEMA IN LOWER EXTREMITIES. , USES C-PAP MACHINE. , STATES "BROKE MY BACK" 2 YRS AGO. , FREQUENT UTI'S., SEE CARDIOLOGY H & P. History of Any Multi-Drug Resistant Organisms: None Reported Past Surgical History: Breast Surgery, Heart Catheterization, Orthopedic Surgery Additional Past Surgical History / Comment(s): lt breast bx, lt MASTECTOMY/ TRANSFLAP (1999), rosalind cataract, rosalind ROTATOR CUFF, colonoscopy/egd, d&c Past Anesthesia/Blood Transfusion Reactions: Motion Sickness Additional Past Anesthesia/Blood Transfusion Reaction / Comment(s): clausterphobic in MRI machines Past Psychological History: No Psychological Hx Reported Smoking Status: Former smoker Past Alcohol Use History: None Reported Past Drug Use History: None Reported - Past Family History Father Family Medical History: Asthma, Dementia Additional Family Medical History / Comment(s): "heart problems" Mother Family Medical History: Coronary Artery Disease (CAD), Diabetes Mellitus Additional Family Medical History / Comment(s): triple vessel cabg Brother(s) Family Medical History: Cancer, Coronary Artery Disease (CAD) Additional Family Medical History / Comment(s): a 2nd brother from cancer General Exam - General Exam Comments Initial Comments: GENERAL: Pt awake and alert, well-appearing, well-nourished, and in no acute distress. HEAD: Atraumatic, normocephalic. EYES: Pupils equal, round, and reactive to light, extraocular movements intact, sclera anicteric, conjunctiva are normal. ENT: Moist mucous membranes. NECK:Supple without lymphadenopathy. LUNGS: Breath sounds clear to auscultation bilaterally. No wheezes, rales, or rhonchi. HEART: Heart S1, S2, no S3 or S4. Regular rate and rhythm. No murmurs, rubs or gallops. ABDOMEN: Soft, obese, nontender, nondistended, normoactive bowel sounds. No guarding, no rebound. Urogenital: Mild pelvic tenderness. NEUROLOGICAL: Pt oriented x 3. Cranial nerves II through XII grossly intact. Strength and sensation grossly intact. PSYCH: Normal mood, normal affect. SKIN: Warm, dry. Limitations: no limitations Course Vital Signs 10/15/16 18:58 Temperature 97.3 F L Pulse Rate 81 Respiratory 18 Rate Blood Pressure 132/89 O2 Sat by Pulse 97 Oximetry Medical Decision Making - Medical Decision Making Urinary tract infection, present on arrival. Patient given Macrobid one dose in the emergency department and provided prescription for 5 days. Patient instructed to follow-up with primary care physician. Urine culture pending. - Lab Data Lab Results 10/15/16 Range/Units 19:15 Urine Color Dark Yellow Urine Appearance Turbid H (Clear) Urine pH 5.0 (5.0-8.0) Ur Specific Wellman 1.013 (1.001-1.035) Urine Protein 1+ H (Negative) Urine Glucose (UA) Negative (Negative) Urine Ketones Negative (Negative) Urine Blood Large H (Negative) Urine Nitrite Negative (Negative) Urine Bilirubin Negative (Negative) Urine Urobilinogen <2.0 (<2.0) mg/dL Ur Leukocyte Esterase Large H (Negative) Urine RBC >182 H (0-5) /hpf Urine WBC >182 H (0-5) /hpf Urine WBC Clumps Many H (None) /hpf Disposition Clinical Impression: Urinary tract infection Disposition: HOME SELF-CARE Condition: Good Instructions: Urinary Tract Infection in Women (ED) Additional Instructions: Finish antibiotic as prescribed. Increase oral intake. Follow-up with primary care physician as directed. Please return to the emergency department with symptoms of fever, nausea, vomiting, abdominal pain, or any other concerning symptoms. Prescriptions: Nitrofurantoin Monohyd/M-Cryst [Macrobid] 100 mg PO Q12HR #10 cap Referrals: Rosalba Medrano MD [Primary Care Provider] - 1-2 days Time of Disposition: 19:33
[2016-10-15 19:36] LABS: Appearance,Urine Turbid (Clear); Bilirubin,Urine Negative (Negative); Glucose,Urine (UA) Negative (Negative); Ketones,Urine Negative (Negative); Leukocyte Esterase,Urine Large (Negative); Nitrite,Urine Negative (Negative); Particle Count 2486; Protein,Urine 1+ (Negative); RBC,Urine >182 /hpf (0-5); Specific Gravity,Urine 1.013 (1.001-1.035); UA Billing (MACRO vs. MICRO) MICRO; Urobilinogen,Urine <2.0 mg/dL (<2.0); WBC,Urine >182 /hpf (0-5)
== END 2016-10-15 19:50 | disposition home or self-care (01) ==
LOC: EC 18:55
DX: N39.0 Urinary tract infection, site not specified (principal); E11.9 Type 2 diabetes mellitus without complications; E78.5 Hyperlipidemia, unspecified; K21.9 Gastro-esophageal reflux disease without esophagitis; I10 Essential (primary) hypertension; M19.90 Unspecified osteoarthritis, unspecified site; J44.9 Chronic obstructive pulmonary disease, unspecified; E07.9 Disorder of thyroid, unspecified; Z87.891 Personal history of nicotine dependence; Z79.899 Other long term (current) drug therapy; Z88.8 Allergy status to other drugs, medicaments and biological substances; Z91.048 Other nonmedicinal substance allergy status; Z87.01 Personal history of pneumonia (recurrent); Z85.3 Personal history of malignant neoplasm of breast
CPT/HCPCS: 81001; 87086; 99283

== ENCOUNTER → 2016-12-28 | Outpatient (CLI) | payer MEDICARE, BC ==
--- NOTE | 2016-12-28 16:42 | XR ---
EXAMINATION TYPE: XR ankle complete RT DATE OF EXAM: 12/28/2016 COMPARISON: NONE HISTORY: Lateral malleolar swelling TECHNIQUE: Three-view right ankle FINDINGS: There is swelling of the medial malleolus. The lateral malleolar swelling does not appear s ignificantly compared to the medial side. Plantar calcaneal heel spur is present. Vascular calcificat ion is present. Ankle mortise is intact. No acute fractures are identified. Follow-up study can be performed 7-10 days from acute trauma for continued pain. IMPRESSION: 1. Medial malleolar swelling. 2. No acute osseous abnormality
== END | disposition home or self-care (01) ==
LOC: RADXRYALE 16:22
PROVIDERS: ATTEND Internal Medicine
DX: M79.89 Other specified soft tissue disorders (principal); S93.491A Sprain of other ligament of right ankle, initial encounter

== ENCOUNTER → 2017-03-22 | Outpatient (CLI) | payer MEDICARE, BC ==
--- NOTE | 2017-03-22 13:18 | MM ---
Reason for exam: additional evaluation requested from prior study. Last mammogram was performed 1 year ago. History: Patient is postmenopausal and has history of breast cancer at age 59. Family history of breast cancer in maternal grandmother at age 87. Excisional biopsy of the left breast, 1999. Mastectomy of the left breast, 1999. Chemotherapy. TRAM Reconstruction of the left breast. Took hormonal contraceptives for 2 years beginning at age 31. Took estrogen for 10 years beginning at age 57. Took tamoxifen for 5 years beginning at age 61. Physical Findings: Nurse did not find any significant physical abnormalities on exam. MG 3D Diag Mammo W/Cad RT CC and MLO view(s) were taken of the right breast. Prior study comparison: March 15, 2016, right breast MG 3d diag mammo w/cad RT. March 14, 2015, right breast MG 3d diag mammo w/cad RT. The breast tissue is heterogeneously dense. This may lower the sensitivity of mammography. Stable benign calcifications. There is no discrete abnormality including area of concern. No significant new findings when compared with previous films. These results were verbally communicated with the patient and result sheet given to the patient on 03/22/17. ASSESSMENT: Benign, BI-RAD 2 RECOMMENDATION: Follow-up diagnostic mammogram of the right breast in 1 year.
== END | disposition home or self-care (01) ==
LOC: RADMAMWWP 10:46
PROVIDERS: ATTEND Internal Medicine
DX: C50.212 Malignant neoplasm of upper-inner quadrant of left female breast (principal)
CPT/HCPCS: G0206; G0279

== ENCOUNTER → 2017-11-16 | Outpatient (CLI) | payer MEDICARE, BC ==
[2017-11-16 14:38] LABS: Basophils % (A) 0 %; Eosinophils # (A) 0.2 k/uL (0-0.7); Eosinophils % (A) 5 %; HCT 33.6 % (34.0-46.0); Lymphocytes # (A) 0.8 k/uL (1.0-4.8); Lymphocytes % (A) 17 %; MCH 31.9 pg (25.0-35.0); MCHC 32.7 g/dL (31.0-37.0); MCV 97.7 fL (80.0-100.0); Mean Platelet Volume 7.5; Monocytes # (A) 0.3 k/uL (0-1.0); Monocytes % (A) 7 %; Neutrophils # (A) 3.1 k/uL (1.3-7.7); Neutrophils % (A) 68 %; Platelet Count 122 k/uL (150-450); RBC 3.44 m/uL (3.80-5.40); RDW 14.1 % (11.5-15.5); WBC 4.6 k/uL (3.8-10.6)
[2017-11-16 14:42] LABS: Appearance,Urine Clear (Clear); Bilirubin,Urine Negative (Negative); Blood,Urine Negative (Negative); Color,Urine Yellow; Glucose,Urine (UA) Negative (Negative); Ketones,Urine Negative (Negative); Leukocyte Esterase,Urine Trace (Negative); Mucus,Urine Rare /hpf; Nitrite,Urine Negative (Negative); Protein,Urine Negative (Negative); RBC,Urine <1 /hpf (0-5); Specific Gravity,Urine 1.016 (1.001-1.035); Squamous Epithelial Cell,Urine <1 /hpf (0-4); Urobilinogen,Urine <2.0 mg/dL (<2.0); WBC,Urine 1 /hpf (0-5)
[2017-11-16 14:45] LABS: Calcium 9.2 mg/dL (8.4-10.2); Potassium 4.7 mmol/L (3.5-5.1)
== END | disposition home or self-care (01) ==
LOC: LABPAT 13:38
PROVIDERS: ATTEND Urology
DX: Z01.818 Encounter for other preprocedural examination (principal); E78.5 Hyperlipidemia, unspecified; R35.0 Frequency of micturition; R31.29 Other microscopic hematuria; E11.9 Type 2 diabetes mellitus without complications; N39.3 Stress incontinence (female) (male); E03.9 Hypothyroidism, unspecified; I10 Essential (primary) hypertension; Z01.812 Encounter for preprocedural laboratory examination
CPT/HCPCS: 36415; 80048; 81001; 85025; 87086; 93005

== ENCOUNTER 2017-11-23 09:10 | Day surgery (SDC) | payer MEDICARE, BC ==
[2017-11-17 13:46] VITALS: BMI 37.7
--- NOTE | 2017-11-23 06:48 | P.GSHP ---
History of Present Illness H&P Date: 11/23/17 The patient has documented DAMIAN SHe has failed meds and physical therapy Treatment alternatives were discussed SHe comes for a TOT - Constitutional Constitutional: Denies chills, Denies fever - EENT Eyes: denies blurred vision, denies pain Ears, nose, mouth and throat: Denies headache, Denies sore throat - Cardiovascular Cardiovascular: Denies chest pain, Denies shortness of breath - Respiratory Respiratory: Denies cough, Denies 7 - Gastrointestinal Gastrointestinal: Denies abdominal pain, Denies diarrhea, Denies nausea, Denies vomiting - Genitourinary (Female) Genitourinary: Denies dysuria, Denies hematuria - Genitourinary (Male) Genitourinary: Denies dysuria, Denies hematuria - Musculoskeletal Musculoskeletal: Denies myalgias - Integumentary Integumentary: Denies pruritus, Denies rash - Neurological Neurological: Denies numbness, Denies weakness - Psychiatric Psychiatric: Denies anxiety, Denies depression - Endocrine Endocrine: Denies fatigue, Denies weight change Past Medical History Past Medical History: Cancer, Chest Pain / Angina, COPD, Diabetes Mellitus, Eye Disorder, GERD/Reflux, Hyperlipidemia, Hypertension, Osteoarthritis (OA), Pneumonia, Renal Disease, Sleep Apnea/CPAP/BIPAP, Thyroid Disorder Additional Past Medical History / Comment(s): HX BREAST CANCER WITH CHEMO(1999) , DIVERTICULOSIS, SCIATIC NERVE PAIN, rosalind. open angle GLAUCOMA, HX OF ANEMIA WITH IRON TRANSFUSIONS. , MIGRAINES ., STATES EDEMA IN LOWER EXTREMITIES. , USES C-PAP MACHINE. , STATES "BROKE MY BACK" 3 YRS AGO. , FREQUENT UTI'S, pain in lt arm d/t "bone on bone" unable to lift arm beyond breast level . History of Any Multi-Drug Resistant Organisms: None Reported Past Surgical History: Breast Surgery, Heart Catheterization, Orthopedic Surgery Additional Past Surgical History / Comment(s): lt breast bx, lt MASTECTOMY/ TRANSFLAP (1999) and removal of axillary lymph nodes , rosalind cataract, rosalind ROTATOR CUFF, colonoscopy/egd, d&c, rosalind leg vein surgery for circulation Past Anesthesia/Blood Transfusion Reactions: Motion Sickness Additional Past Anesthesia/Blood Transfusion Reaction / Comment(s): claustrophobic in MRI machines Smoking Status: Former smoker - Past Family History Father Family Medical History: Asthma, Dementia Additional Family Medical History / Comment(s): "heart problems" Mother Family Medical History: Coronary Artery Disease (CAD), Diabetes Mellitus Additional Family Medical History / Comment(s): triple vessel cabg Brother(s) Family Medical History: Cancer, Coronary Artery Disease (CAD) Additional Family Medical History / Comment(s): a 2nd brother from cancer Medications and Allergies Home Medications Medication Instructions Recorded Confirmed Type Ergocalciferol [Vitamin D2 50,000 unit PO Q14D 10/23/14 11/17/17 History (DRISDOL)] Levothyroxine Sodium [Synthroid] 50 mcg PO DAILY 10/23/14 11/17/17 History Pioglitazone [Actos] 45 mg PO DAILY 10/23/14 11/17/17 History Rosuvastatin [Crestor] 5 mg PO DAILY 10/23/14 11/17/17 History ALPRAZolam [Xanax] 0.25 mg PO HS PRN 12/23/15 11/17/17 History Aspirin 81 mg PO DAILY 12/23/15 11/17/17 History Budesonide [Pulmicort] 0.5 mg INHALATION BID PRN 12/23/15 11/17/17 History Multivitamins, Thera [Multivitamin 1 tab PO DAILY 12/23/15 11/17/17 History (formulary)] Vitamin B Complex 1 cap PO DAILY 12/23/15 11/17/17 History Gabapentin [Neurontin] 300 mg PO HS 05/28/16 11/17/17 History Albuterol Nebulized [Ventolin 2.5 mg INHALATION DAILY PRN 06/30/16 11/17/17 History Nebulized] Lisinopril-Hctz 10-12.5 mg 1 tab PO DAILY 06/30/16 11/17/17 History [Zestoretic 10-12.5] Tolterodine [Detrol] 2 mg PO DAILY 11/17/17 11/17/17 History Allergies Allergy/AdvReac Type Severity Reaction Status Date / Time brimonidine [From Alphagan P] Allergy Unknown ALLERGY TO Verified 11/17/17 13:21 EYE GTTS- RED & ITCHY EYES. adhesive tape Allergy Rash/Hives Verified 11/17/17 13:21 EKG ELECTRODES AdvReac Unknown Rash/Hives Uncoded 11/17/17 13:21 Surgical - Exam - General well developed, well nourished, no distress - Eyes PERRL - ENT no hearing loss - Neck no masses, trachea midline - Respiratory normal expansion, normal respiratory effort - Cardiovascular Rhythm: regular - Abdomen Abdomen: soft, non tender - Genitourinary Hypermobile urethra with damian - Integumentary no rash - Neurologic normal coordination, normal sensation - Musculoskeletal normal gait - Psychiatric oriented to time, oriented to person, oriented to place, speech is normal, memory intact Assessment and Plan Assessment: Impression: DAMIAN, multiple medical issues as outlined in H Plan TOT
[~2017-11-23 09:10] MED LIST changes: -ALPRAZolam 0.25 MG TAB PO PRN; -ALPRAZolam 0.5 MG TAB PO PRN; -ASPIRIN 325 MG TAB PO STA; -ATORVASTATIN 80 MG TAB PO STA; +DEXAMETHASONE SOD PHOSPHATE 10 MG/ML 1 ML VIAL IV ONE; +HYDROmorphone 1 MG/ML 1 ML SYRINGE IVP PRN; +LACTATED RINGERS 1,000 ML IV SCH; +LIDOCAINE 1% 20 ML VIAL (10MG/ML) FOR IV START INTRADERMA PRN; +MIDAZOLAM 2 MG/2 ML VIAL IV PRN; -NITROGLYCERIN SL TABS 0.4 MG TAB SUBLINGUAL PRN; +ONDANSETRON 4 MG/2 ML VIAL IVP ONE; +SCOPOLAMINE 1.5MG/72HR PATCH TRANSDERM ONE; -SODIUM CHLORIDE 0.9% 1,000 ML in EMPTY BAG 1 BAG IV ONE
[2017-11-23 09:52] LABS: Glucose,Whole Blood 97 mg/dL (75-99)
[2017-11-23] MEDS ORDERED: ceFAZolin 1,000 MG in DEXTROSE/WATER 1 50ML.BAG IVPB ONE (10:15)
[2017-11-23] MEDS ORDERED: PROPOFOL 10 MG/ML 20 ML VIAL IV ONE (10:21)
[2017-11-23] MEDS ORDERED: MIDAZOLAM 2 MG/2 ML VIAL ONE (10:21)
[2017-11-23] MEDS ORDERED: fentaNYL (PF) 50 MCG/ML 2 ML AMP ONE (10:21)
[2017-11-23] MEDS ORDERED: SUCCINYLCHOLINE CHLORIDE 100 MG/5 ML SYR IV ONE (10:21)
[2017-11-23] MEDS ORDERED: BACITRACIN 500 UNIT/GM OINT 28.4 GM TUBE TOPICAL ONE (10:41)
[2017-11-23] MEDS ORDERED: GENTAMICIN IN NACL ISO-OSM PMX 80 MG/100 ML BAG IVPB ONE (10:41)
[2017-11-23] MEDS ORDERED: VASOPRESSIN 20 UNIT/ML 1 ML VIAL SQ ONE (10:42)
[2017-11-23] MEDS ORDERED: ONDANSETRON 4 MG/2 ML VIAL IVP PRN (11:05)
[2017-11-23] MEDS ORDERED: KETOROLAC 30 MG/ML 1 ML VIAL IVP PRN (11:05)
--- NOTE | 2017-11-23 11:11 | P.OP ---
Date of Procedure: 11/23/17 Preoperative Diagnosis: Stress urinary incontinence Postoperative Diagnosis: Same Procedure(s) Performed: Placement of trans-obturator tape, cystoscopy Anesthesia: ROSA MARIA Surgeon: Salvador Dior Estimated Blood Loss (ml): 100 Pathology: none sent Condition: stable Disposition: PACU Indications for Procedure: The patient is 77. She has documented stress urinary incontinence. She comes for a trans-obturator tape Description of Procedure: Patient brought to the operating suite. Given general anesthesia. She's placed lithotomy position with sterile prep and drape. The labia are sewn laterally with 2-0 silk. A vaginal speculum was introduced. A Mistry catheters introduced. The anterior vaginal mucosa was elevated off the submucosa with 20 g of Pitressin and 200 mL of saline. A midline suburethral incision is made. I dissect lateral the bladder neck bilaterally with Metzenbaum scissors. I make 2 incisions in the inguinal crease at the level of the clitoris. The obturator tape introducers a passed through the incisions into the obturator foramen around the issue pubic ramus into the vagina bilaterally making sure not to injure the bladder or buttonhole the vaginal apex. Cystoscopy Foroblique lens and 19-Georgian sheath make sure there is no injury to the urethra and there is none. The trans-obturator tape was attached to the introducers and pull back through the obturator foramen bilaterally. It sits in the mid urethra nicely. The vaginal mucosa was closed with running 3-0 Vicryl. The redundant graft sheathing is removed from the inguinal incisions. The inguinal incisions are closed with 4-0 Vicryl. A vaginal packing is placed. The urine remains clear. The patient's awakened and returned recovery room good condition. She tolerated the procedure well. Blood loss is approximately 100 mL.
[2017-11-23] MEDS ORDERED: HYDROmorphone 1 MG/ML 1 ML SYRINGE IVP ONE (11:22)
[2017-11-23 11:41] LABS: Glucose,Whole Blood 115 mg/dL (75-99)
[2017-11-23] MEDS: ALBUTEROL NEBULIZED 2.5 MG/3 ML INHALATION PRN (13:34)
[2017-11-23] MEDS: SODIUM CHLORIDE 0.45% 1,000 ML IV SCH (14:03)
[2017-11-23] MEDS: POLYETHYLENE GLYCOL 3350 17 GM POWD.PACK PO SCH (21:56)
[2017-11-23] MEDS: GABAPENTIN 300 MG CAP PO SCH (21:56)
[2017-11-24] MEDS: ALPRAZolam 0.25 MG TAB PO PRN ×2 (00:07→22:32)
[2017-11-24] MEDS: SODIUM CHLORIDE 0.45% 1,000 ML IV SCH ×2 (02:12→15:29)
[2017-11-24] MEDS: LEVOTHYROXINE 50 MCG TAB PO SCH (06:24)
[2017-11-24] MEDS: ASPIRIN 81 MG PO SCH (08:33)
[2017-11-24] MEDS: LISINOPRIL-HCTZ 10-12.5 MG 1 EACH TAB PO SCH (08:34)
[2017-11-24] MEDS: PIOGLITAZONE 45 MG TAB PO SCH (08:34)
[2017-11-24] MEDS ORDERED: OXYBUTYNIN XL 5 MG TAB.ER.24 PO SCH (09:00)
[2017-11-24] MEDS: ALBUTEROL NEBULIZED 2.5 MG/3 ML INHALATION PRN ×2 (09:03→19:17)
[2017-11-24] MEDS: BUDESONIDE 0.5 MG/2 ML NEBU INHALATION PRN ×2 (09:03→19:17)
[2017-11-24 16:41] VITALS: TEMP 97.3
[2017-11-24] MEDS ORDERED: BISACODYL 10 MG SUPP RECTAL STA (18:43)
--- NOTE | 2017-11-24 18:47 | P.PN ---
Subjective Progress Note Date: 11/24/17 Principal diagnosis: POD #1, s/p TOT Sling The patient underwent an uncomplicated T0T sling yesterday. She has been afebrile with stable vital signs since that time. Her urine output was good overnight. The Mistry catheter was removed this morning, and she has voided only small amounts. Her postvoid residuals have been low. She states that she does not feel an urge to void. She denies dysuria and hematuria. Her appetite is good, and she denies nausea and vomiting. She does report some bloating. Objective - Vital Signs Vital signs: Vital Signs Temp 97.3 F L 11/24/17 16:15 Pulse 54 L 11/24/17 16:15 Resp 16 11/24/17 16:15 BP 126/69 11/24/17 16:15 Pulse Ox 97 11/24/17 16:15 Intake & Output 11/23/17 11/24/17 11/24/17 18:59 06:59 18:59 Intake Total 1130 700 Output Total 1450 400 267 Balance -320 -400 433 Weight 109.316 kg Intake: IV 650 Oral 480 700 Output: Urine 1350 400 267 Post Void Residual 0 Estimated Blood Loss 100 Other: Voiding Method Indwelling Catheter Indwelling Catheter Toilet - Constitutional General appearance: Present: cooperative, no acute distress - Gastrointestinal General gastrointestinal: Present: soft. Absent: tenderness - Genitourinary Genitourinary Comment(s): Incisions are intact. - Psychiatric Psychiatric: Present: A&O x's 3, appropriate affect Assessment and Plan Plan: The patient reports some bloating, which she attributes to the lack of a bowel movement. Her abdomen is somewhat obese, and in view of this I straight catheterized her after she voided approximately 100 mL this evening. I obtained only several cc of urine via straight cath. She will be observed overnight. A Dulcolax suppository will be administered.
[2017-11-24] MEDS: GABAPENTIN 300 MG CAP PO SCH (21:38)
[2017-11-25 00:24] VITALS: RESP 18
[2017-11-25] MEDS: POLYETHYLENE GLYCOL 3350 17 GM POWD.PACK PO SCH (01:46)
[2017-11-25] MEDS: SODIUM CHLORIDE 0.45% 1,000 ML IV SCH (03:58)
[2017-11-25] MEDS: LEVOTHYROXINE 50 MCG TAB PO SCH (06:34)
--- NOTE | 2017-11-25 06:58 | P.DS ---
Providers Attending physician: Salvador Dior Primary care physician: [facility] Course: The patient underwent a trans-obturator tape tape 11/23/2017 for stress incontinence. Postoperatively she had some pain such that he wasn't discharged home yesterday. Her urine output was low but eventually improved. She voided to completion. Her pain is gone. She is ambulating and tolerating a regular diet. She will therefore be discharged home. Regular diet limited activity. She will resume all her medications. She'll follow-up in the office in one week. Condition is good Plan - Discharge Summary Discharge Rx Participant: No New Discharge Prescriptions: New Cephalexin [Keflex] 500 mg PO Q8HR #15 cap No Action Levothyroxine Sodium [Synthroid] 50 mcg PO DAILY Ergocalciferol [Vitamin D2 (DRISDOL)] 50,000 unit PO Q14D Rosuvastatin [Crestor] 5 mg PO DAILY Pioglitazone [Actos] 45 mg PO DAILY Multivitamins, Thera [Multivitamin (formulary)] 1 tab PO DAILY Aspirin 81 mg PO DAILY Budesonide [Pulmicort] 0.5 mg INHALATION BID PRN PRN Reason: Shortness Of Breath ALPRAZolam [Xanax] 0.25 mg PO HS PRN PRN Reason: Insomnia Vitamin B Complex 1 cap PO DAILY Gabapentin [Neurontin] 300 mg PO HS Albuterol Nebulized [Ventolin Nebulized] 2.5 mg INHALATION DAILY PRN PRN Reason: Dyspnea Lisinopril-Hctz 10-12.5 mg [Zestoretic 10-12.5] 1 tab PO DAILY Tolterodine [Detrol] 2 mg PO DAILY Discharge Medication List Ergocalciferol [Vitamin D2 (DRISDOL)] 50,000 unit PO Q14D 10/23/14 [History] Levothyroxine Sodium [Synthroid] 50 mcg PO DAILY 10/23/14 [History] Pioglitazone [Actos] 45 mg PO DAILY 10/23/14 [History] Rosuvastatin [Crestor] 5 mg PO DAILY 10/23/14 [History] ALPRAZolam [Xanax] 0.25 mg PO HS PRN 12/23/15 [History] Aspirin 81 mg PO DAILY 12/23/15 [History] Budesonide [Pulmicort] 0.5 mg INHALATION BID PRN 12/23/15 [History] Multivitamins, Thera [Multivitamin (formulary)] 1 tab PO DAILY 12/23/15 [History ] Vitamin B Complex 1 cap PO DAILY 12/23/15 [History] Gabapentin [Neurontin] 300 mg PO HS 05/28/16 [History] Albuterol Nebulized [Ventolin Nebulized] 2.5 mg INHALATION DAILY PRN 06/30/16 [ History] Lisinopril-Hctz 10-12.5 mg [Zestoretic 10-12.5] 1 tab PO DAILY 06/30/16 [History ] Tolterodine [Detrol] 2 mg PO DAILY 11/17/17 [History] Cephalexin [Keflex] 500 mg PO Q8HR #15 cap 11/24/17 [Rx] Follow up Appointment(s)/Referral(s): Salvador Dior MD [STAFF PHYSICIAN] - 1 Week Activity/Diet/Wound Care/Special Instructions: Diet as tolerated. Okay to shower. No lifting, driving, or strenuous activity. Hold oxybutynin chloride. Resume other home medications. Discharge Disposition: HOME SELF-CARE
[2017-11-25 08:43] VITALS: BP 133/72; PULSE 58
[2017-11-25] MEDS: ASPIRIN 81 MG PO SCH (10:21)
[2017-11-25] MEDS: PIOGLITAZONE 45 MG TAB PO SCH (10:21)
[2017-11-25] MEDS: LISINOPRIL-HCTZ 10-12.5 MG 1 EACH TAB PO SCH (10:21)
== END 2017-11-25 11:43 | disposition home or self-care (01) ==
LOC: OR 09:10 → 6PED 10:57 → OR 11-25 11:43
PROVIDERS: ATTEND Urology
DX: N39.3 Stress incontinence (female) (male) (principal); J44.9 Chronic obstructive pulmonary disease, unspecified; K21.9 Gastro-esophageal reflux disease without esophagitis; E78.5 Hyperlipidemia, unspecified; I10 Essential (primary) hypertension; M19.90 Unspecified osteoarthritis, unspecified site; E11.22 Type 2 diabetes mellitus with diabetic chronic kidney disease; G47.30 Sleep apnea, unspecified; Z99.89 Dependence on other enabling machines and devices; E07.9 Disorder of thyroid, unspecified; Z87.891 Personal history of nicotine dependence; Z80.3 Family history of malignant neoplasm of breast; Z79.84 Long term (current) use of oral hypoglycemic drugs; Z79.890 Hormone replacement therapy; Z79.51 Long term (current) use of inhaled steroids; Z79.899 Other long term (current) drug therapy; Z88.8 Allergy status to other drugs, medicaments and biological substances; Z91.09 Other allergy status, other than to drugs and biological substances
CPT/HCPCS: 94640 ×3; 94760; 57288; J1580; J2250; J1100; J2405; J3010; J1885; J1170; J0690; J0330; J2704

== ENCOUNTER → 2017-12-13 | Outpatient (CLI) | payer MEDICARE, BC ==
[2017-12-13 12:43] LABS: ALT 28 U/L (9-52); AST 25 U/L (14-36); Cholesterol 175 mg/dL (<200); HDL Cholesterol 68 mg/dL (40-60); LDL Cholesterol,Calculated 83 mg/dL (0-99); Triglycerides 120 mg/dL (<150)
== END | disposition home or self-care (01) ==
LOC: LABWHC1 11:47
PROVIDERS: ATTEND Internal Medicine Interventional Cardiology
DX: E78.2 Mixed hyperlipidemia (principal)
CPT/HCPCS: 36415; 80061; 84450; 84460

== ENCOUNTER → 2018-03-23 | Outpatient (CLI) | payer MEDICARE, BC ==
--- NOTE | 2018-03-23 13:05 | MM ---
Reason for exam: additional evaluation requested from prior study. Last mammogram was performed 1 year ago. History: Patient is postmenopausal and has history of breast cancer at age 59. Family history of breast cancer in maternal grandmother at age 87. Excisional biopsy of the left breast, 1999. Mastectomy of the left breast, 1999. Chemotherapy. TRAM Reconstruction of the left breast. Took hormonal contraceptives for 2 years beginning at age 31. Took estrogen for 10 years beginning at age 57. Took tamoxifen for 5 years beginning at age 61. Physical Findings: Nurse did not find any significant physical abnormalities on exam. MG 3D Diag Mammo W/Cad RT CC and MLO view(s) were taken of the right breast. Prior study comparison: March 22, 2017, right breast MG 3d diag mammo w/cad RT. March 15, 2016, right breast MG 3d diag mammo w/cad RT. The breast tissue is heterogeneously dense. This may lower the sensitivity of mammography. There are benign appearing round vascular calcifications in the right breast. There is no discrete abnormality. These results were verbally communicated with the patient and result sheet given to the patient on 03/23/18. ASSESSMENT: Benign, BI-RAD 2 RECOMMENDATION: Follow-up diagnostic mammogram of the right breast in 1 month.
== END | disposition home or self-care (01) ==
LOC: RADMAMWWP 10:56
PROVIDERS: ATTEND Internal Medicine Hematology & Oncology
DX: Z08 Encounter for follow-up examination after completed treatment for malignant neoplasm (principal); Z85.3 Personal history of malignant neoplasm of breast
CPT/HCPCS: 77065; G0279; 77061

== ENCOUNTER → 2019-03-27 | Outpatient (CLI) | payer MEDICARE, BC ==
--- NOTE | 2019-03-27 12:04 | MM ---
Reason for exam: additional evaluation requested from prior study. Last mammogram was performed 1 year ago. History: Patient is postmenopausal, has history of breast cancer at age 59, and history of other cancer. Family history of breast cancer in maternal grandmother at age 87. Excisional biopsy of the left breast, 1999. Mastectomy of the left breast, 1999. Chemotherapy. TRAM Reconstruction of the left breast. Took hormonal contraceptives for 2 years beginning at age 31. Took estrogen for 10 years beginning at age 57. Took tamoxifen for 5 years beginning at age 61. Physical Findings: Nurse did not find any significant physical abnormalities on exam. MG 3D Diag Mammo W/Cad RT CC and MLO view(s) were taken of the right breast. Prior study comparison: March 23, 2018, right breast MG 3d diag mammo w/cad RT. March 22, 2017, right breast MG 3d diag mammo w/cad RT. The breast tissue is heterogeneously dense. This may lower the sensitivity of mammography. Finding: There are typically benign dystrophic, round, linear calcifications in the right breast. There is no discrete abnormality. These results were verbally communicated with the patient and result sheet given to the patient on 03/27/19. ASSESSMENT: Benign, BI-RAD 2 RECOMMENDATION: Follow-up diagnostic mammogram of the right breast in 1 year.
== END | disposition home or self-care (01) ==
LOC: RADMAMWWP 11:06
PROVIDERS: ATTEND Internal Medicine
DX: C50.212 Malignant neoplasm of upper-inner quadrant of left female breast (principal)
CPT/HCPCS: 77061; 77065

== ENCOUNTER → 2020-03-28 | Outpatient (CLI) | payer MEDICARE, BC ==
--- NOTE | 2020-03-28 13:43 | MM ---
Reason for exam: additional evaluation requested from prior study. Last mammogram was performed 1 year ago. History: Patient is postmenopausal, has history of breast cancer at age 59, and history of other cancer. Family history of breast cancer in maternal grandmother at age 87. Excisional biopsy of the left breast, 1999. Mastectomy of the left breast, 1999. Chemotherapy. TRAM Reconstruction of the left breast. Took hormonal contraceptives for 2 years beginning at age 31. Took estrogen for 10 years beginning at age 57. Took tamoxifen for 5 years beginning at age 61. Physical Findings: Nurse did not find any significant physical abnormalities on exam. MG 3D Diag Mammo W/Cad RT CC and MLO view(s) were taken of the right breast. Prior study comparison: March 27, 2019, right breast MG 3d diag mammo w/cad RT. March 23, 2018, right breast MG 3d diag mammo w/cad RT. There are scattered fibroglandular densities. There are benign appearing round, vascular calcifications in the right breast. There is no discrete abnormality. These results were verbally communicated with the patient and result sheet given to the patient on 03/28/20. ASSESSMENT: Benign, BI-RAD 2 RECOMMENDATION: Follow-up diagnostic mammogram of the right breast in 1 year.
== END | disposition home or self-care (01) ==
LOC: RADMAMWWP 12:48
PROVIDERS: ATTEND Internal Medicine
DX: Z08 Encounter for follow-up examination after completed treatment for malignant neoplasm (principal); Z85.3 Personal history of malignant neoplasm of breast
CPT/HCPCS: 77065; G0279; 77061

== ENCOUNTER → 2020-05-02 | Outpatient (CLI) | payer MEDICARE, BC ==
--- NOTE | 2020-05-02 10:39 | CT ---
EXAMINATION TYPE: CT angio chest DATE OF EXAM: 05/02/2020 10:21 AM COMPARISON: None. HISTORY: thoracic aneurysm CT DLP: 1310.4 mGycm Automated exposure control for dose reduction was used. CONTRAST: CTA scan of the thorax is performed without and with IV Contrast, patient injected with 80 mL of Isov ue 370, aneurysm protocol. 3D reconstructed images are created on an independent workstation and rev iewed.. FINDINGS: LUNGS: There is peripheral reticulation and fibrotic changes with areas of micronodularity bilaterall y. Mild linear scarring and/or atelectasis in both lower lungs. No pleural effusion or pneumothorax. No suspicious greater than 5 mm nodules. MEDIASTINUM: Ascending aorta measures up to 3.3 cm in diameter. Normal three-vessel origin from aorti c arch. Mild to moderate mixed plaque in the aortic arch and descending aorta. More moderate to sever e calcified plaque at origin of celiac artery and SMA. No aortic dissection. There are few prominent but subcentimeter scattered thoracic lymph nodes. No cardiomegaly or pericardial effusion is seen. Moderate coronary artery calcification. OTHER: Occasional calcifications scattered throughout the spleen. Severe fat replaced atrophy of panc reas. Cortical thinning visualized portion of both kidneys. Osseous structures demineralized with exa ggerated kyphosis and mild/moderate compression type fracture deformities at T8 and T9 level. IMPRESSION: No thoracic aortic aneurysm.
== END | disposition home or self-care (01) ==
LOC: RADCTMAIN 08:51
PROVIDERS: ATTEND Internal Medicine Interventional Cardiology
DX: I71.2 Thoracic aortic aneurysm, without rupture (principal); Z91.048 Other nonmedicinal substance allergy status; Z88.8 Allergy status to other drugs, medicaments and biological substances; Z88.1 Allergy status to other antibiotic agents
CPT/HCPCS: 82565; 84520; 71275; 36415; Q9967

== ENCOUNTER 2020-07-07 15:53 | Inpatient (IN) | payer MEDICARE, BC ==
[2020-07-07] MEDS ORDERED: IPRATROPIUM-ALBUTEROL 3 ML NEB INHALATION STA (16:16)
--- NOTE | 2020-07-07 16:19 | ED ---
General Adult HPI - General Chief complaint: Shortness of Breath Stated complaint: SOB Time Seen by Provider: 07/07/20 16:03 Source: patient Mode of arrival: ambulatory Limitations: no limitations - History of Present Illness Initial comments: Dictation was produced using [employer] dictation software. please excuse any grammatical, word or spelling errors. This patient was cared for during a federal and state declared state of emergency secondary to Covid 19 Chief Complaint: 79-year-old female with past mental history of COPD on home oxygen presents with cough History of Present Illness: And is a 79-year-old female she presents today with a productive cough. Patient has past medical history of COPD. She wears half a liter of oxygen at home via nasal cannula. Patient states that she got a coronavirus vaccine last week. She states that since then she's been having cough shortness of breath. Patient seen her primary care physician who put her on a course of steroids patient states that her symptoms are persistent and not really improving. She denies any constitutional symptoms. Patient denies any lower extremity symptoms. She denies any history of DVT or thromboembolic disease. The ROS documented in this emergency department record has been reviewed and confirmed by me. Those systems with pertinent positive or negative responses have been documented in the HPI. All other systems are other negative and/or no ncontributory. PHYSICAL EXAM: General Impression: Alert and oriented x3, not in acute distress HEENT: Normocephalic atraumatic, extra-ocular movements intact, pupils equal and reactive to light bilaterally, mucous membranes moist. Cardiovascular: Heart regular rate and rhythm Chest: Able to complete full sentences, no retractions, no tachypnea, lungs clear to auscultation bilaterally Abdomen: abdomen soft, non-tender, non-distended, no organomegaly Musculoskeletal: Pulses present and equal in all extremities, no peripheral edema Motor: no focal deficits noted Neurological: CN II-XII grossly intact, no focal motor or sensory deficits noted Skin: Intact with no visualized rashes Psych: Normal affect and mood ED course: 79-year-old female presents with cough. All signs upon arrival shows heart rate of 52, worse vital signs within acceptable limits. Patient does not appear to be in any acute respiratory distress. Her complaint is cough that is productive of clear sputum. Lungs are clear on auscultation bilaterally. Laboratory evaluation obtained. Leukopenia 3.7. Platelets of 78. Metabolic panel shows an 131. Slight elevation of renal markers. Rotavirus test is positive. Chest x-ray shows mild pulmonary fibrotic changes without any significant evidence. Patient became hypoxic with ambulatory oxygen. Patient dropped as low as 84%. She is placed back in her room and her saturations improved. Patient be admitted for exertional hypoxia secondary to cold at 19. Given that she is being admitted she is not a candidate for monoclonal antibodies. Patient started on 6 mg of Decadron daily. EKG interpretation: Ventricular rate 47, sats breaker,. Interval 142, QRS 80, QTC 426. No OR prolongation, no QTC prolongation, no ST or T-wave changes noted. EKG compared to 11/16/2017 showing no changes. Overall, this EKG is unremarkable - Related Data Home Medications Medication Instructions Recorded Confirmed Ergocalciferol [Vitamin D2 50,000 unit PO Q14D 10/23/14 07/07/20 (DRISDOL)] Rosuvastatin [Crestor] 10 mg PO DAILY 10/23/14 07/07/20 ALPRAZolam [Xanax] 0.25 mg PO HS PRN 12/23/15 07/07/20 Aspirin 81 mg PO DAILY 12/23/15 07/07/20 Budesonide [Pulmicort] 0.5 mg INHALATION RT-BID PRN 12/23/15 07/07/20 Multivitamins, Thera [Multivitamin 1 tab PO DAILY 12/23/15 07/07/20 (formulary)] Vitamin B Complex 1 cap PO DAILY 12/23/15 07/07/20 Gabapentin [Neurontin] 300 mg PO HS PRN 05/28/16 07/07/20 Albuterol Nebulized [Ventolin 2.5 mg INHALATION RT-DAILY PRN 06/30/16 07/07/20 Nebulized] Lisinopril-Hctz 10-12.5 mg 1 tab PO DAILY 06/30/16 07/07/20 [Zestoretic 10-12.5] Cholecalciferol [Vitamin D3 (25 25 mcg PO DAILY 07/07/20 07/07/20 Mcg = 1000 Iu)] Furosemide [Lasix] 20 mg PO DAILY 07/07/20 07/07/20 Levothyroxine Sodium [Synthroid] 75 mcg PO DAILY 07/07/20 07/07/20 Pioglitazone [Actos] 30 mg PO DAILY 07/07/20 07/07/20 Turmeric Root Extract [Turmeric] 500 mg PO DAILY 07/07/20 07/07/20 Allergies Allergy/AdvReac Type Severity Reaction Status Date / Time brimonidine [From Alphagan P] Allergy Unknown ALLERGY TO Verified 07/07/20 17:27 EYE GTTS- RED & ITCHY EYES. adhesive tape Allergy Rash/Hives Verified 07/07/20 17:27 EKG ELECTRODES AdvReac Unknown Rash/Hives Uncoded 07/07/20 15:59 Review of Systems ROS Statement: Those systems with pertinent positive or pertinent negative responses have been documented in the HPI. ROS Other: All systems not noted in ROS Statement are negative. Past Medical History Past Medical History: Cancer, Chest Pain / Angina, COPD, Diabetes Mellitus, Eye Disorder, GERD/Reflux, Hyperlipidemia, Hypertension, Osteoarthritis (OA), Pneumonia, Renal Disease, Sleep Apnea/CPAP/BIPAP, Thyroid Disorder Additional Past Medical History / Comment(s): HX BREAST CANCER WITH CHEMO(1999), DIVERTICULOSIS, SCIATIC NERVE PAIN, GLAUCOMA, HX OF ANEMIA WITH IRON TRANSFUSIONS. , MIGRAINES ., STATES EDEMA IN LOWER EXTREMITIES. , USES C-PAP MACHINE. , STATES "BROKE MY BACK" 2 YRS AGO. , FREQUENT UTI'S., SEE CARDIOLOGY H & P. History of Any Multi-Drug Resistant Organisms: None Reported Past Surgical History: Breast Surgery, Heart Catheterization, Orthopedic Surgery Additional Past Surgical History / Comment(s): lt breast bx, lt MASTECTOMY/TRANSFLAP (1999) and removal of axillary lymph nodes , rosalind cataract, rosalind ROTATOR CUFF, colonoscopy/egd, d&c, rosalind leg vein surgery for circulation. Bladder sling 11/23/2017. Past Anesthesia/Blood Transfusion Reactions: Motion Sickness Additional Past Anesthesia/Blood Transfusion Reaction / Comment(s): clausterphobic in MRI machines Past Psychological History: No Psychological Hx Reported Smoking Status: Former smoker Past Alcohol Use History: None Reported Past Drug Use History: None Reported - Past Family History Father Family Medical History: Asthma, Dementia Additional Family Medical History / Comment(s): "heart problems" Mother Family Medical History: Coronary Artery Disease (CAD), Diabetes Mellitus Additional Family Medical History / Comment(s): triple vessel cabg Brother(s) Family Medical History: Cancer, Coronary Artery Disease (CAD) Additional Family Medical History / Comment(s): a 2nd brother from cancer General Exam Limitations: no limitations Course Vital Signs 07/07/20 07/07/20 15:55 16:54 Temperature 97.8 F 97.7 F Pulse Rate 52 L 50 L Respiratory 20 18 Rate Blood Pressure 146/57 138/64 O2 Sat by Pulse 96 97 Oximetry Medical Decision Making - Lab Data Result diagrams: 07/07/20 16:19 07/07/20 16:19 Lab Results 07/07/20 07/07/20 07/07/20 Range/Units 16:19 16:19 16:19 WBC 3.7 L (3.8-10.6) k/uL RBC 3.70 L (3.80-5.40) m/uL Hgb 12.0 (11.4-16.0) gm/dL Hct 35.3 (34.0-46.0) % MCV 95.3 (80.0-100.0) fL MCH 32.5 (25.0-35.0) pg MCHC 34.1 (31.0-37.0) g/dL RDW 12.9 (11.5-15.5) % Plt Count 78 L (150-450) k/uL MPV 8.3 Neutrophils % 79 % Lymphocytes % 12 % Monocytes % 6 % Eosinophils % 1 % Basophils % 1 % Neutrophils # 2.9 (1.3-7.7) k/uL Lymphocytes # 0.4 L (1.0-4.8) k/uL Monocytes # 0.2 (0-1.0) k/uL Eosinophils # 0.0 (0-0.7) k/uL Basophils # 0.0 (0-0.2) k/uL Sodium 131 L (137-145) mmol/L Potassium 4.8 (3.5-5.1) mmol/L Chloride 103 (98-107) mmol/L Carbon Dioxide 19 L (22-30) mmol/L Anion Gap 9 mmol/L BUN 28 H (7-17) mg/dL Creatinine 1.26 H (0.52-1.04) mg/dL Est GFR (CKD-EPI)AfAm 47 (>60 ml/min/1.73 sqM) Est GFR (CKD-EPI)NonAf 41 (>60 ml/min/1.73 sqM) Glucose 111 H (74-99) mg/dL Calcium 8.5 (8.4-10.2) mg/dL NT-Pro-B Natriuret Pep 118 pg/mL Coronavirus (PCR) (Not Detectd) 07/07/20 Range/Units 16:19 WBC (3.8-10.6) k/uL RBC (3.80-5.40) m/uL Hgb (11.4-16.0) gm/dL Hct (34.0-46.0) % MCV (80.0-100.0) fL MCH (25.0-35.0) pg MCHC (31.0-37.0) g/dL RDW (11.5-15.5) % Plt Count (150-450) k/uL MPV Neutrophils % % Lymphocytes % % Monocytes % % Eosinophils % % Basophils % % Neutrophils # (1.3-7.7) k/uL Lymphocytes # (1.0-4.8) k/uL Monocytes # (0-1.0) k/uL Eosinophils # (0-0.7) k/uL Basophils # (0-0.2) k/uL Sodium (137-145) mmol/L Potassium (3.5-5.1) mmol/L Chloride (98-107) mmol/L Carbon Dioxide (22-30) mmol/L Anion Gap mmol/L BUN (7-17) mg/dL Creatinine (0.52-1.04) mg/dL Est GFR (CKD-EPI)AfAm (>60 ml/min/1.73 sqM) Est GFR (CKD-EPI)NonAf (>60 ml/min/1.73 sqM) Glucose (74-99) mg/dL Calcium (8.4-10.2) mg/dL NT-Pro-B Natriuret Pep pg/mL Coronavirus (PCR) Detected A (Not Detectd) Disposition Clinical Impression: COVID-19 Disposition: ADMITTED IP TO THIS HOSP Condition: Fair Referrals: Rosalba Medrano MD [Primary Care Provider] - 1-2 days Decision Time: 17:42
[2020-07-07 16:43] LABS: Basophils % (A) 1 %; Eosinophils % (A) 1 %; HCT 35.3 % (34.0-46.0); Lymphocytes # (A) 0.4 k/uL (1.0-4.8); Lymphocytes % (A) 12 %; MCH 32.5 pg (25.0-35.0); MCHC 34.1 g/dL (31.0-37.0); MCV 95.3 fL (80.0-100.0); Mean Platelet Volume 8.3; Monocytes # (A) 0.2 k/uL (0-1.0); Monocytes % (A) 6 %; Neutrophils # (A) 2.9 k/uL (1.3-7.7); Neutrophils % (A) 79 %; RDW 12.9 % (11.5-15.5); WBC 3.7 k/uL (3.8-10.6)
--- NOTE | 2020-07-07 16:54 | XR ---
EXAMINATION TYPE: XR chest 1V portable DATE OF EXAM: 07/07/2020 COMPARISON: 06/06/2016 HISTORY: Pulmonary edema TECHNIQUE: Single view FINDINGS: There is no heart failure nor confluent pneumonic infiltrate. There is some coarsening of i nterstitial markings. There are chest leads. Costophrenic angles are clear. IMPRESSION: Mild pulmonary fibrotic changes. No heart failure. No change compared to old exam. I do n ot see evidence of pulmonary edema.
[2020-07-07 16:57] LABS: Calcium 8.5 mg/dL (8.4-10.2); Potassium 4.8 mmol/L (3.5-5.1)
[2020-07-07 17:05] LABS: Platelet Count 78 k/uL (150-450)
[2020-07-07] MEDS ORDERED: dexAMETHasone 4 MG TAB PO STA (17:42)
[2020-07-07] MEDS ORDERED: NALOXONE 0.4 MG/ML 1 ML VIAL IV PRN (17:43)
[2020-07-07] MEDS: SODIUM CHLORIDE 0.9% 1,000 ML IV SCH (17:56)
[2020-07-07] MEDS ORDERED: ALBUTEROL HFA INHALER INHALATION STA (18:48)
[2020-07-07] MEDS ORDERED: TIOTROPIUM 2.5 MCG INHALER INHALATION STA (18:48)
[2020-07-08 07:00] LABS: Glucose,Whole Blood 147 mg/dL (75-99)
[2020-07-08] MEDS: INSULIN ASPART (NovoLOG) 100 UNIT/ML VIAL SQ SCH ×4 (08:26→20:41)
[2020-07-08] MEDS ORDERED: BUDESONIDE 0.5 MG/2 ML NEBU INHALATION SCH (08:33)
[2020-07-08] MEDS ORDERED: GABAPENTIN 300 MG CAP PO PRN (08:33)
[2020-07-08] MEDS ORDERED: ALBUTEROL NEBULIZED 2.5 MG/3 ML INHALATION PRN (08:33)
[2020-07-08] MEDS ORDERED: ONDANSETRON 4 MG/2 ML VIAL IVP PRN (08:34)
[2020-07-08] MEDS ORDERED: ACETAMINOPHEN TAB 325 MG TAB PO PRN (08:34)
[2020-07-08] MEDS ORDERED: NON FORMULARY DRUG (Vitamin B Complex [Vitamin B Complex] 1 EACH Capsule) PO SCH (09:00)
[2020-07-08] MEDS ORDERED: NON FORMULARY DRUG (Turmeric Root Extract [Turmeric] 500 MG Capsule) PO SCH (09:00)
[2020-07-08] MEDS: PIOGLITAZONE 30 MG TAB PO SCH (09:06)
[2020-07-08] MEDS: CHOLECALCIFEROL 25 MCG (1000 IU) TABLET PO SCH (09:06)
[2020-07-08] MEDS: LEVOTHYROXINE 75 MCG TAB PO SCH (09:06)
[2020-07-08] MEDS: MULTIVITAMINS, THERA 1 EACH TAB PO SCH (09:06)
[2020-07-08] MEDS: ATORVASTATIN 20 MG TAB PO SCH (09:06)
[2020-07-08] MEDS: ASPIRIN 81 MG PO SCH (09:06)
[2020-07-08 09:56] LABS: African American GFR (CKD) 56 (>60 ml/min/1.73 sqM); Anion Gap 7 mmol/L; Blood Urea Nitrogen 30 mg/dL (7-17); Calcium 8.6 mg/dL (8.4-10.2); Carbon Dioxide 22 mmol/L (22-30); Chloride 106 mmol/L (98-107); Glucose 180 mg/dL (74-99); Non-African American GFR(CKD) 49 (>60 ml/min/1.73 sqM); Potassium 4.6 mmol/L (3.5-5.1); Sodium 135 mmol/L (137-145)
[2020-07-08] MEDS: ALBUTEROL HFA INHALER INHALATION PRN (11:13)
[2020-07-08] MEDS: FLUTICASONE 110 MCG INHALER INHALATION SCH ×2 (11:14→20:58)
[2020-07-08 11:32] LABS: Glucose,Whole Blood 138 mg/dL (75-99)
--- NOTE | 2020-07-08 12:04 | P.HPIM ---
History of Present Illness 73-year-old female came in with complaints of generalized weakness, cough which started about 10 days ago a day after she took her Covid 19 vaccine. Patient's has similar symptoms was diagnosed with the Covid as well and patient does have positive Covid as well. Her primary care physician gave her a course of steroids without any significant improvement because of which patient came to ER. She and quit 40 years ago does have history of COPD uses half a liter of oxygen at home presently on 2 L. Patient was started on Decadron. She is also hypotensive hyponatremic patient was on Lasix at home along with the lisinopril and hydrochlorothiazide Review of Systems REVIEW OF SYSTEMS: CONSTITUTIONAL: As mentioned in HPI HEENT: No recent visual problems or hearing problems. Denied any sore throat. CARDIOVASCULAR: No chest pain, orthopnea, PND, no palpitations, no syncope. PULMONARY: No shortness of breath, no cough, no hemoptysis. GASTROINTESTINAL: No diarrhea, no nausea, no vomiting, no abdominal pain. NEUROLOGICAL: No headaches, no weakness, no numbness. HEMATOLOGICAL: Denies any bleeding or petechiae. GENITOURINARY: Denies any burning micturition, frequency, or urgency. MUSCULOSKELETAL/RHEUMATOLOGICAL: Denies any joint pain, swelling, or any muscle pain. ENDOCRINE: Denies any polyuria or polydipsia. The rest of the 14-point review of systems is negative. Past Medical History Past Medical History: Cancer, Chest Pain / Angina, COPD, Diabetes Mellitus, Eye Disorder, GERD/Reflux, Hyperlipidemia, Hypertension, Osteoarthritis (OA), Pneumonia, Renal Disease, Sleep Apnea/CPAP/BIPAP, Thyroid Disorder Additional Past Medical History / Comment(s): HX BREAST CANCER WITH CHEMO (1999), DIVERTICULOSIS, SCIATIC NERVE PAIN, GLAUCOMA, HX OF ANEMIA WITH IRON TRANSFUSIONS. , MIGRAINES ., STATES EDEMA IN LOWER EXTREMITIES. , USES C-PAP MACHINE. , STATES "BROKE MY BACK" 2 YRS AGO. , FREQUENT UTI'S., SEE CARDIOLOGY H & P. History of Any Multi-Drug Resistant Organisms: None Reported Past Surgical History: Breast Surgery, Heart Catheterization, Orthopedic Surgery Additional Past Surgical History / Comment(s): lt breast bx, lt MASTEC TAL/TRANSFLAP (1999) and removal of axillary lymph nodes , rosalind cataract, rosalind ROTATOR CUFF, colonoscopy/egd, d&c, rosalind leg vein surgery for circulation. Bladder sling 11/23/2017. Past Anesthesia/Blood Transfusion Reactions: Motion Sickness Additional Past Anesthesia/Blood Transfusion Reaction / Comment(s): claustrophobic in MRI machines Past Psychological History: No Psychological Hx Reported Smoking Status: Former smoker Past Alcohol Use History: None Reported Additional Past Alcohol Use History / Comment(s): smoked from 1976-to 04/26 ppd. Past Drug Use History: None Reported - Past Family History Father Family Medical History: Asthma, Dementia Additional Family Medical History / Comment(s): "heart problems" Mother Family Medical History: Coronary Artery Disease (CAD), Diabetes Mellitus Additional Family Medical History / Comment(s): triple vessel cabg Brother(s) Family Medical History: Cancer, Coronary Artery Disease (CAD) Additional Family Medical History / Comment(s): a 2nd brother from cancer Medications and Allergies Home Medications Medication Instructions Recorded Confirmed Type Ergocalciferol [Vitamin D2 50,000 unit PO Q14D 10/23/14 07/07/20 History (RACIEL)] Rosuvastatin [Crestor] 10 mg PO DAILY 10/23/14 07/07/20 History ALPRAZolam [Xanax] 0.25 mg PO HS PRN 12/23/15 07/07/20 History Aspirin 81 mg PO DAILY 12/23/15 07/07/20 History Budesonide [Pulmicort] 0.5 mg INHALATION RT-BID PRN 12/23/15 07/07/20 History Multivitamins, Thera [Multivitamin 1 tab PO DAILY 12/23/15 07/07/20 History (formulary)] Vitamin B Complex 1 cap PO DAILY 12/23/15 07/07/20 History Gabapentin [Neurontin] 300 mg PO HS PRN 05/28/16 07/07/20 History Albuterol Nebulized [Ventolin 2.5 mg INHALATION RT-DAILY PRN 06/30/16 07/07/20 History Nebulized] Lisinopril-Hctz 10-12.5 mg 1 tab PO DAILY 06/30/16 07/07/20 History [Zestoretic 10-12.5] Cholecalciferol [Vitamin D3 (25 25 mcg PO DAILY 07/07/20 07/07/20 History Mcg = 1000 Iu)] Furosemide [Lasix] 20 mg PO DAILY 07/07/20 07/07/20 History Levothyroxine Sodium [Synthroid] 75 mcg PO DAILY 07/07/20 07/07/20 History Pioglitazone [Actos] 30 mg PO DAILY 07/07/20 07/07/20 History Turmeric Root Extract [Turmeric] 500 mg PO DAILY 07/07/20 07/07/20 History Allergies Allergy/AdvReac Type Severity Reaction Status Date / Time brimonidine [From Alphagan P] Allergy Unknown ALLERGY TO Verified 07/07/20 17:27 EYE GTTS- RED & ITCHY EYES. adhesive tape Allergy Rash/Hives Verified 07/07/20 17:27 EKG ELECTRODES AdvReac Unknown Rash/Hives Uncoded 07/07/20 15:59 Physical Exam Vitals: Vital Signs Temp Pulse Pulse Resp BP BP Pulse Ox 07/08/20 10:43 97.9 F 41 L 19 126/56 94 L 07/08/20 09:25 92 L 07/08/20 05:37 97.4 F L 38 L 98/61 92 L 07/08/20 02:35 97.4 F L 35 L 122/76 92 L 07/07/20 23:16 97.5 F L 49 L 18 142/53 96 07/07/20 22:00 97.5 F L 60 18 169/85 96 07/07/20 18:28 98.1 F 72 18 118/87 98 07/07/20 17:43 97.9 F 58 L 20 118/84 97 07/07/20 16:54 97.7 F 50 L 18 138/64 97 07/07/20 15:55 97.8 F 52 L 20 146/57 96 Intake and Output 07/07/20 07/08/20 07/08/20 22:59 06:59 14:59 Other: Weight 106.594 kg 106.594 kg PHYSICAL EXAMINATION: GENERAL: The patient is alert and oriented x3, not in any acute distress. Well developed, well nourished. HEENT: Pupils are round and equally reacting to light. EOMI. No scleral icterus. No conjunctival pallor. Normocephalic, atraumatic. No pharyngeal erythema. No thyromegaly. CARDIOVASCULAR: S1 and S2 present. No murmurs, rubs, or gallops. PULMONARY: Chest is clear to auscultation, no wheezing or crackles. ABDOMEN: Soft, nontender, nondistended, normoactive bowel sounds. No palpable organomegaly. MUSCULOSKELETAL: No joint swelling or deformity. EXTREMITIES: No cyanosis, clubbing, or pedal edema. NEUROLOGICAL: Gross neurological examination did not reveal any focal deficits. SKIN: No rashes. Results CBC & Chem 7: 07/07/20 16:19 07/08/20 09:38 Labs: Abnormal Lab Results - Last 24 Hours (Table) 07/07/20 07/07/20 07/07/20 Range/Units 16:19 16:19 16:19 WBC 3.7 L (3.8-10.6) k/uL RBC 3.70 L (3.80-5.40) m/uL Plt Count 78 L (150-450) k/uL Lymphocytes # 0.4 L (1.0-4.8) k/uL Sodium 131 L (137-145) mmol/L Carbon Dioxide 19 L (22-30) mmol/L BUN 28 H (7-17) mg/dL Creatinine 1.26 H (0.52-1.04) mg/dL Glucose 111 H (74-99) mg/dL POC Glucose (mg/dL) (75-99) mg/dL Coronavirus (PCR) Detected A (Not Detectd) 07/08/20 07/08/20 07/08/20 Range/Units 06:58 09:38 11:31 WBC (3.8-10.6) k/uL RBC (3.80-5.40) m/uL Plt Count (150-450) k/uL Lymphocytes # (1.0-4.8) k/uL Sodium 135 L (137-145) mmol/L Carbon Dioxide (22-30) mmol/L BUN 30 H (7-17) mg/dL Creatinine 1.09 H (0.52-1.04) mg/dL Glucose 180 H (74-99) mg/dL POC Glucose (mg/dL) 147 H 138 H (75-99) mg/dL Coronavirus (PCR) (Not Detectd) Thrombosis Risk Factor Assmnt - Choose All That Apply Any of the Below Risk Factors Present?: No Other Risk Factors: Yes Each Risk Factor Represents 3 Points: Age 75 years or older Other congenital or acquired thrombophilia - If yes, enter type in comment: No Thrombosis Risk Factor Assessment Total Risk Factor Score: 3 Thrombosis Risk Factor Assessment Level: Moderate Risk Assessment and Plan Plan: -Covid 19 pneumonia: Patient is bit hypoxic and requiring 2 L of oxygen. Patient will be continued on Decadron will be monitored overnight possibility of discharge tomorrow. Patient may have had this Covid even before she got vaccinated and maxillary patient may have worsened her symptoms. -COPD with mild acute exacerbation patient will continued on inhalational treatments inhalational steroids. 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
--- NOTE | 2020-07-08 12:16 | P.CNPUL ---
History of Present Illness Consult date: 07/08/20 Reason for consult: dyspnea, cough, hypoxemia, pneumonia Chief complaint: shortness of breath and cough History of present illness: this is a 79-year-old female with history of the morbid obesity sleep disorder breathing and sleep apnea has been on half a liter oxygen, she presented with 2 day history of cough shortness of breath she had her first shot of covert vaccine a week ago she has been on oral steroids without improvement in symptoms as out patient came into the hospital for further evaluation, her significant history is for COPD dyslipidemia morbid obesity hypertension hypertensive cardiovascular disease hypothyroidism and type 2 diabetes mellitus, currently she is on 2 L nasal cannula oxygen she is constantly coughing short of breath on minimal activity and exertion and very weak and exhausted, her covid testing came back positive, Review of Systems All systems: negative Past Medical History Past Medical History: Cancer, Chest Pain / Angina, COPD, Diabetes Mellitus, Eye Disorder, GERD/Reflux, Hyperlipidemia, Hypertension, Osteoarthritis (OA), Pneumonia, Renal Disease, Sleep Apnea/CPAP/BIPAP, Thyroid Disorder Additional Past Medical History / Comment(s): HX BREAST CANCER WITH CHEMO (200 0), DIVERTICULOSIS, SCIATIC NERVE PAIN, GLAUCOMA, HX OF ANEMIA WITH IRON TRANSFUSIONS. , MIGRAINES ., STATES EDEMA IN LOWER EXTREMITIES. , USES C-PAP MACHINE. , STATES "BROKE MY BACK" 2 YRS AGO. , FREQUENT UTI'S., SEE CARDIOLOGY [facility] & P. History of Any Multi-Drug Resistant Organisms: None Reported Past Surgical History: Breast Surgery, Heart Catheterization, Orthopedic Surgery Additional Past Surgical History / Comment(s): lt breast bx, lt MASTECTOMY/TRANSFLAP (1999) and removal of axillary lymph nodes , rosalind cataract, rosalind ROTATOR CUFF, colonoscopy/egd, d&c, rosalind leg vein surgery for circulation. Bladder sling 11/23/2017. Past Anesthesia/Blood Transfusion Reactions: Motion Sickness Additional Past Anesthesia/Blood Transfusion Reaction / Comment(s): claustrophobic in MRI machines Past Psychological History: No Psychological Hx Reported Smoking Status: Former smoker Past Alcohol Use History: None Reported Additional Past Alcohol Use History / Comment(s): smoked from 1976-to 04/26 ppd. Past Drug Use History: None Reported - Past Family History Father Family Medical History: Asthma, Dementia Additional Family Medical History / Comment(s): "heart problems" Mother Family Medical History: Coronary Artery Disease (CAD), Diabetes Mellitus Additional Family Medical History / Comment(s): triple vessel cabg Brother(s) Family Medical History: Cancer, Coronary Artery Disease (CAD) Additional Family Medical History / Comment(s): a 2nd brother from cancer Medications and Allergies Home Medications Medication Instructions Recorded Confirmed Type Ergocalciferol [Vitamin D2 50,000 unit PO Q14D 10/23/14 07/07/20 History (DRISDOL)] Rosuvastatin [Crestor] 10 mg PO DAILY 10/23/14 07/07/20 History ALPRAZolam [Xanax] 0.25 mg PO HS PRN 12/23/15 07/07/20 History Aspirin 81 mg PO DAILY 12/23/15 07/07/20 History Budesonide [Pulmicort] 0.5 mg INHALATION RT-BID PRN 12/23/15 07/07/20 History Multivitamins, Thera [Multivitamin 1 tab PO DAILY 12/23/15 07/07/20 History (formulary)] Vitamin B Complex 1 cap PO DAILY 12/23/15 07/07/20 History Gabapentin [Neurontin] 300 mg PO HS PRN 05/28/16 07/07/20 History Albuterol Nebulized [Ventolin 2.5 mg INHALATION RT-DAILY PRN 06/30/16 07/07/20 History Nebulized] Lisinopril-Hctz 10-12.5 mg 1 tab PO DAILY 06/30/16 07/07/20 History [Zestoretic 10-12.5] Cholecalciferol [Vitamin D3 (25 25 mcg PO DAILY 07/07/20 07/07/20 History Mcg = 1000 Iu)] Furosemide [Lasix] 20 mg PO DAILY 07/07/20 07/07/20 History Levothyroxine Sodium [Synthroid] 75 mcg PO DAILY 07/07/20 07/07/20 History Pioglitazone [Actos] 30 mg PO DAILY 07/07/20 07/07/20 History Turmeric Root Extract [Turmeric] 500 mg PO DAILY 07/07/20 07/07/20 History Allergies Allergy/AdvReac Type Severity Reaction Status Date / Time brimonidine [From Alphagan P] Allergy Unknown ALLERGY TO Verified 07/07/20 17:27 EYE GTTS- RED & ITCHY EYES. adhesive tape Allergy Rash/Hives Verified 07/07/20 17:27 EKG ELECTRODES AdvReac Unknown Rash/Hives Uncoded 07/07/20 15:59 Physical Exam Vitals: Vital Signs Temp Pulse Pulse Resp BP BP Pulse Ox 07/08/20 10:43 97.9 F 41 L 19 126/56 94 L 07/08/20 09:25 92 L 07/08/20 05:37 97.4 F L 38 L 98/61 92 L 07/08/20 02:35 97.4 F L 35 L 122/76 92 L 07/07/20 23:16 97.5 F L 49 L 18 142/53 96 07/07/20 22:00 97.5 F L 60 18 169/85 96 07/07/20 18:28 98.1 F 72 18 118/87 98 07/07/20 17:43 97.9 F 58 L 20 118/84 97 07/07/20 16:54 97.7 F 50 L 18 138/64 97 07/07/20 15:55 97.8 F 52 L 20 146/57 96 Intake and Output 07/07/20 07/08/20 07/08/20 22:59 06:59 14:59 Other: Weight 106.594 kg 106.594 kg - Constitutional General appearance: disheveled, obese - EENT Eyes: PERRLA Ears: bilateral: normal - Neck Neck: normal ROM Carotids: bilateral: upstroke normal Thyroid: bilateral: normal size - Respiratory Respiratory: bilateral: wheezing - Cardiovascular Rhythm: regular Heart sounds: normal: S1, S2 - Gastrointestinal General gastrointestinal: distended, soft - Neurologic Neurologic: CNII-XII intact - Musculoskeletal Musculoskeletal: gait normal, generalized weakness, strength equal bilaterally - Psychiatric Psychiatric: A&O x's 3, appropriate affect, intact judgment & insight Results - Laboratory Findings CBC and BMP: 07/07/20 16:19 07/08/20 09:38 Abnormal lab findings: Abnormal Labs 07/07/20 07/07/20 07/07/20 16:19 16:19 16:19 WBC 3.7 L RBC 3.70 L Plt Count 78 L Lymphocytes # 0.4 L Sodium 131 L Carbon Dioxide 19 L BUN 28 H Creatinine 1.26 H Glucose 111 H POC Glucose (mg/dL) Coronavirus (PCR) Detected A 0307/08/20 07/08/20 06:58 09:38 11:31 WBC RBC Plt Count Lymphocytes # Sodium 135 L Carbon Dioxide BUN 30 H Creatinine 1.09 H Glucose 180 H POC Glucose (mg/dL) 147 H 138 H Coronavirus (PCR) - Diagnostic Findings Chest x-ray: report reviewed, image reviewed (finding as noted above) Assessment and Plan Assessment: Covid 19 infection Acute COPD exacerbation Tracheobronchitis Morbid obesity History of COPD and chronic hypoxic respiratory failure on half liter oxygen Likely sleep disorder breathing and sleep apnea Plan: recommend to start patient on IV steroids check inflammatory parameters Computed tomography scan of the chest to look for cold with 19 pneumonia/int erstitial infiltrate/pulmonary embolism Continue bronchodilator Recommend involving infectious disease services Time with Patient: Greater than 30
[2020-07-08] MEDS: methylPREDNISolone SOD SUCCI 40 MG/ML 1 ML VIAL IV SCH ×2 (12:47→20:41)
--- NOTE | 2020-07-08 14:19 | CT ---
EXAMINATION TYPE: CT chest wo con DATE OF EXAM: 07/08/2020 COMPARISON: 05/02/2020 HISTORY: 79-year-old female COVID 19 pneumonia TECHNIQUE: Contiguous axial scanning of the chest without IV contrast. Coronal and sagittal reconstru ctions performed. CT DLP: 532 mGycm Automated exposure control for dose reduction was used. FINDINGS: Heart normal size without pericardial effusion. LAD and RCA coronary artery calcifications are presen t. Ectatic ascending aorta 3.7 cm. Mild atherosclerotic arch calcifications with a conventional arch ves sienna branching anatomy. Calcified left hilar lymph nodes compatible with prior granulomatous disease. Borderline sized precar inal and prevascular space lymph nodes measuring up to 1.1 cm has slightly increased in the interval, likely reactive. New peripheral and peribronchial vascular bilateral groundglass. No augustine consolidation or pleural ef fusion. Visualized upper abdomen shows mild aortic aneurysm at the thoracoabdominal junction up to 3.3 cm. Sm all calcified granulomas throughout the spleen and a few within the liver. Bones: End-stage degenerative change left shoulder with [id number] articulation. Surgical clips in the left axilla. Moderate to advanced degenerative disc disease mid to lower thoracic spine. IMPRESSION: 1. BILATERAL MULTIFOCAL GROUNDGLASS COMPATIBLE WITH COVID PNEUMONIA. 2. CAD WITH LAD AND RCA CORONARY ARTERY CALCIFICATIONS. 3. EVIDENCE OF PRIOR GRANULOMATOUS DISEASE.
[2020-07-08 16:37] LABS: Glucose,Whole Blood 211 mg/dL (75-99)
[2020-07-08] MEDS: SODIUM CHLORIDE 0.9% 1,000 ML IV SCH (17:30)
[2020-07-08 20:23] LABS: Glucose,Whole Blood 181 mg/dL (75-99)
[2020-07-08 21:19] LABS: Ferritin 783.1 ng/mL (10.0-291.0)
[2020-07-08 22:31] LABS: C Reactive Protein 4.8 mg/dL (0.0-0.8)
[2020-07-09] MEDS: ALPRAZolam 0.25 MG TAB PO PRN (00:42)
[2020-07-09] MEDS: LEVOTHYROXINE 75 MCG TAB PO SCH (05:35)
[2020-07-09 07:12] LABS: Glucose,Whole Blood 166 mg/dL (75-99)
[2020-07-09] MEDS: INSULIN ASPART (NovoLOG) 100 UNIT/ML VIAL SQ SCH ×4 (07:56→20:43)
[2020-07-09] MEDS: methylPREDNISolone SOD SUCCI 40 MG/ML 1 ML VIAL IV SCH ×2 (07:56→20:43)
[2020-07-09] MEDS: CHOLECALCIFEROL 25 MCG (1000 IU) TABLET PO SCH (07:57)
[2020-07-09] MEDS: ASPIRIN 81 MG PO SCH (07:57)
[2020-07-09] MEDS: ATORVASTATIN 20 MG TAB PO SCH (07:57)
[2020-07-09] MEDS: MULTIVITAMINS, THERA 1 EACH TAB PO SCH (07:57)
[2020-07-09] MEDS: PIOGLITAZONE 30 MG TAB PO SCH (07:57)
[2020-07-09] MEDS: FLUTICASONE 110 MCG INHALER INHALATION SCH ×2 (09:36→17:14)
[2020-07-09] MEDS: ALBUTEROL HFA INHALER INHALATION PRN ×3 (09:36→17:14)
[2020-07-09 10:44] LABS: African American GFR (CKD) 43 (>60 ml/min/1.73 sqM); Anion Gap 11 mmol/L; Blood Urea Nitrogen 49 mg/dL (7-17); Calcium 9.3 mg/dL (8.4-10.2); Carbon Dioxide 18 mmol/L (22-30); Chloride 108 mmol/L (98-107); Glucose 231 mg/dL (74-99); Non-African American GFR(CKD) 37 (>60 ml/min/1.73 sqM); Potassium 4.9 mmol/L (3.5-5.1); Sodium 137 mmol/L (137-145)
[2020-07-09 11:47] LABS: Glucose,Whole Blood 228 mg/dL (75-99)
--- NOTE | 2020-07-09 15:20 | P.PN ---
Subjective Progress Note Date: 07/09/20 73-year-old female came in with complaints of generalized weakness, cough which started about 10 days ago a day after she took her Covid 19 vaccine. Patient's has similar symptoms was diagnosed with the Covid as well and patient does have positive Covid as well. Her primary care physician gave her a course of steroids without any significant improvement because of which patient came to ER. She and quit 40 years ago does have history of COPD uses half a liter of oxygen at home presently on 2 L. Patient was started on Decadron. She is also hypotensive hyponatremic patient was on Lasix at home along with the lisinopril and hydrochlorothiazide 07/09/2020 Patient is seen and evaluated and follow-up this morning currently sleeping but easily arousable. Patient being closely monitored and followed by pulmonary Dr. Lazar. Patient is maintained on IV steroids along with inhalers and will continue at this time. Infectious disease consulted and pending at this time. Patient's creatinine is slightly worse today at 1.37 and will continue to hold Lasix and antihypertensive medications. Will discuss with nursing staff about a home O2 eval and instructed the patient to increase activity as tolerated. Review of systems: Constitutional: Reports fatigue, no reports of fever, or chills Cardiovascular: No reports of chest pain or palpitations Respiratory: No reports of worsening shortness of breath GI: No reports of nausea, vomiting, or diarrhea : No reports of dysuria or retention Neurovascular: No reports of weakness or numbness All medications have been reviewed Objective - Vital Signs Vital signs: Vital Signs Temp 97.6 F 07/09/20 05:48 Pulse 41 L 07/09/20 05:48 Resp 16 07/08/20 18:00 BP 100/63 07/09/20 05:48 Pulse Ox 92 L 07/09/20 09:39 Intake & Output 07/08/20 07/09/20 07/09/20 18:59 06:59 18:59 Intake Total 200 Balance 200 Intake: Oral 200 Other: Voiding Method Toilet # Voids 3 2 - Exam GENERAL: The patient is alert and oriented x3, not in any acute distress. Well developed, well nourished. HEENT: Pupils are round and equally reacting to light. EOMI. No scleral icterus. No conjunctival pallor. Normocephalic, atraumatic. No pharyngeal erythema. No thyromegaly. CARDIOVASCULAR: S1 and S2 present. No murmurs, rubs, or gallops. PULMONARY: Diminished breath sounds bilaterally with some expiratory wheezing noted ABDOMEN: Soft, nontender, nondistended, normoactive bowel sounds. No palpable organomegaly. MUSCULOSKELETAL: No joint swelling or deformity. EXTREMITIES: No cyanosis, clubbing, or pedal edema. NEUROLOGICAL: Gross neurological examination did not reveal any focal deficits. SKIN: No rashes. - Labs CBC & Chem 7: 07/07/20 16:19 07/09/20 09:57 Labs: Abnormal Lab Results - Last 24 Hours (Table) 07/08/20 07/08/20 07/08/20 Range/Units 09:38 09:38 11:31 Sodium 135 L (137-145) mmol/L BUN 30 H (7-17) mg/dL Creatinine 1.09 H (0.52-1.04) mg/dL Glucose 180 H (74-99) mg/dL POC Glucose (mg/dL) 138 H (75-99) mg/dL Ferritin 783.1 H (10.0-291.0) ng/mL Lactate Dehydrogenase 386 H (120-246) U/L C-Reactive Protein 4.8 H (0.0-0.8) mg/dL 07/08/20 07/08/20 07/09/20 Range/Units 16:35 20:22 07:11 Sodium (137-145) mmol/L BUN (7-17) mg/dL Creatinine (0.52-1.04) mg/dL Glucose (74-99) mg/dL POC Glucose (mg/dL) 211 H 181 H 166 H (75-99) mg/dL Ferritin (10.0-291.0) ng/mL Lactate Dehydrogenase (120-246) U/L C-Reactive Protein (0.0-0.8) mg/dL Assessment and Plan Assessment: -Covid 19 pneumonia: Patient is bit hypoxic and requiring 2 L of oxygen. Pa kwabena is maintained on IV steroids 40 mg twice daily. Patient may have had this Covid even before she got vaccinated and may have exacerbated her symptoms -COPD with mild acute exacerbation patient will continued on inhalational treatments inhalational steroids. Pulmonary Dr. 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 She is maintained on IV Solu-Medrol and will continue this time. Pulmonary is following and infectious disease consulted and pending at this time. Patient continues to require 2 L of oxygen and discussed with nursing staff about weaning FiO2 as tolerated. Patient does not normally wear oxygen the outpatient setting. Will do a home O2 eval for the possibility of requiring oxygen due to COPD and recent Covid 19 infection. Instructed the patient to increase activity as tolerated. Creatinine slightly worse at 1.37. Continue to monitor blood sugars and continue sliding scale. Will await and appreciate infectious disease recommendations. Possible discharge in 24-48 hours.
--- NOTE | 2020-07-09 16:02 | P.PN ---
Subjective Progress Note Date: 07/09/20 Principal diagnosis: Covid 19 infection Acute COPD exacerbation Tracheobronchitis Morbid obesity History of COPD and chronic hypoxic respiratory failure on half liter oxygen Likely sleep disorder breathing and sleep apnea 07/09/2020, patient seen eval examined during the rounds labs reviewed medications reviewed slightly less short of breath with diffuse wheezing, patient has been noted to have bilateral patchy infiltrate consistent with cord pneumonia on CAT scan, computed tomography scan reviewed, today patient is afebrile, continued to be bradycardic, oxygen saturation slightly better 95% on 2 L oxygen, resting aches and pain improved and better than before, it appears that patient had vaccine and covert 19 exposure along same time frame this is a 79-year-old female with history of the morbid obesity sleep disorder breathing and sleep apnea has been on half a liter oxygen, she presented with 2 day history of cough shortness of breath she had her first shot of covert vaccine a week ago she has been on oral steroids without improvement in symptoms as out patient came into the hospital for further evaluation, her significant history is for COPD dyslipidemia morbid obesity hypertension hypertensive cardiovascular disease hypothyroidism and type 2 diabetes mellitus, currently she is on 2 L nasal cannula oxygen she is constantly coughing short of breath on minimal activity and exertion and very weak and exhausted, her covid testing came back positive Objective - Vital Signs Vital signs: Vital Signs Temp 96.7 F L 07/09/20 14:00 Pulse 50 L 07/09/20 14:00 Resp 20 07/09/20 14:00 BP 105/47 07/09/20 14:00 Pulse Ox 95 07/09/20 14:00 Intake & Output 07/08/20 07/09/20 07/09/20 18:59 06:59 18:59 Intake Total 200 Balance 200 Intake: Oral 200 Other: Voiding Method Toilet # Voids 3 2 - Exam - Constitutional General appearance: disheveled, obese - EENT Eyes: PERRLA Ears: bilateral: normal - Neck Neck: normal ROM Carotids: bilateral: upstroke normal Thyroid: bilateral: normal size - Respiratory Respiratory: bilateral: wheezing - Cardiovascular Rhythm: regular Heart sounds: normal: S1, S2 - Gastrointestinal General gastrointestinal: distended, soft - Neurologic Neurologic: CNII-XII intact - Musculoskeletal Musculoskeletal: gait normal, generalized weakness, strength equal bilaterally - Psychiatric Psychiatric: A&O x's 3, appropriate affect, intact judgment & insight - Labs CBC & Chem 7: 07/07/20 16:19 07/09/20 09:57 Labs: Abnormal Lab Results - Last 24 Hours (Table) 07/08/20 07/08/20 07/08/20 Range/Units 09:38 16:35 20:22 Chloride (98-107) mmol/L Carbon Dioxide (22-30) mmol/L BUN (7-17) mg/dL Creatinine (0.52-1.04) mg/dL Glucose (74-99) mg/dL POC Glucose (mg/dL) 211 H 181 H (75-99) mg/dL Ferritin 783.1 H (10.0-291.0) ng/mL Lactate Dehydrogenase 386 H (120-246) U/L C-Reactive Protein 4.8 H (0.0-0.8) mg/dL 07/09/20 07/09/20 07/09/20 Range/Units 07:11 09:57 11:46 Chloride 108 H (98-107) mmol/L Carbon Dioxide 18 L (22-30) mmol/L BUN 49 H (7-17) mg/dL Creatinine 1.37 H (0.52-1.04) mg/dL Glucose 231 H (74-99) mg/dL POC Glucose (mg/dL) 166 H 228 H (75-99) mg/dL Ferritin (10.0-291.0) ng/mL Lactate Dehydrogenase (120-246) U/L C-Reactive Protein (0.0-0.8) mg/dL Assessment and Plan Assessment: Covid 19 pneumonia Acute hypoxic respiratory failure Acute COPD exacerbation Tracheobronchitis Morbid obesity History of COPD and chronic hypoxic respiratory failure on half liter oxygen Likely sleep disorder breathing and sleep apnea Plan: Continue IV steroids Follow inflammatory parameters Computed tomography scan of the chest to look for cold with 19 pneumoni a/interstitial infiltrate reviewed Continue bronchodilator Lovenox subcu 30 twice a day Time with Patient: Greater than 30
[2020-07-09 16:42] LABS: Glucose,Whole Blood 201 mg/dL (75-99)
[2020-07-09 20:38] LABS: Glucose,Whole Blood 162 mg/dL (75-99)
[2020-07-09] MEDS: ENOXAPARIN 30 MG/0.3 ML SYRINGE SQ SCH (20:43)
[2020-07-09] MEDS: SENNOSIDES 8.6 MG TAB PO SCH (20:44)
[2020-07-10] MEDS: ALPRAZolam 0.25 MG TAB PO PRN (00:56)
[2020-07-10] MEDS: LEVOTHYROXINE 75 MCG TAB PO SCH (06:02)
--- NOTE | 2020-07-10 06:39 | CONS ---
CONSULTATION DATE OF SERVICE: 07/09/2020 REASON FOR CONSULTATION: COVID-19 infection. HISTORY OF PRESENT ILLNESS: The patient is a 79-year-old female presenting to the hospital 2 days ago for evaluation of increasing shortness of breath and cough in this patient whose symptoms have been going on for about a week before presentation to the hospital. The patient denies having any headache or URI symptoms. Has been complaining of shortness of breath and cough which has been moderate in intensity with occasional sputum production. No hemoptysis. No pleuritic chest pain. Some nausea but no vomiting. No abdominal pain. Did have some diarrhea. With these symptoms, the patient has been evaluated by the ER physician. On arrival to the ER, the patient was afebrile and no fever has been recorded in the last 3 days. The patient did have a mild hypoxemia is currently on 2 L, saturating 97%. The patient did have a normal white count with lymphopenia. ProBNP was normal. Inflammatory markers elevated. Mcgraw PCR came back positive. The patient did have a chest x-ray as well as a CT of the chest which shows bilateral multifocal ground-glass opacities compatible with COVID pneumonia. Patient currently being treated by Admitting and Pulmonary Medicine and has been on Solu- Medrol, Lovenox. Infectious Disease was consulted today for further management. REVIEW OF SYSTEMS: Positive points have been mentioned in HPI. Rest of the systems are negative. PAST MEDICAL HISTORY: Significant for COPD, diabetes mellitus, GERD, hypertension, hyperlipidemia, osteoarthritis. PAST SURGICAL HISTORY: Heart catheterization, breast surgery, bilateral rotator cuff repair, bilateral cataract surgery. SOCIAL HISTORY: Remote history of smoking. No drinking or drug use. FAMILY HISTORY: Father with history of asthma and dementia. Mother with history of coronary disease and diabetes. ALLERGIES: ADHESIVE TAPES. MEDICATIONS: The patient is currently on Tylenol, Ventolin, Xanax, aspirin, Lipitor, vitamin D3, Lovenox, Solu-Medrol, Synthroid, NovoLog, Zofran, Actos, Senokot. PHYSICAL EXAMINATION: VITAL SIGNS: Blood pressure 132/64 with a pulse of 47, temperature 97.4, she is 97% on 2 L nasal cannula. GENERAL DESCRIPTION: Patient is an elderly female up in the chair in no distress. No tachypnea or accessory muscles of respiration use. HEENT: Examination shows no pallor or scleral icterus. Oral mucous membrane is dry. NECK: Trachea central, no thyromegaly. LUNGS: Unlabored breathing, coarse breath sounds bilaterally. No wheeze. HEART: S1-S2, regular rate and rhythm. ABDOMEN: Soft, no tenderness. No guarding or rigidity. EXTREMITIES: No edema of the feet. SKIN: No rash or mass palpable. NEUROLOGICAL: Patient is awake, alert, oriented times three. Mood and affect normal. LABS: Hemoglobin is 12.4, white count 3.7, BUN of 30, creatinine 1.09. Elevated inflammatory markers. Mcgraw PCR was positive. Chest x-ray and CT report as mentioned above. DIAGNOSTIC IMPRESSION: Patient admitted to the hospital with increasing shortness of breath and cough in this patient who has been diagnosed with acute COVID-19 infection. Symptoms have been going on for about a week and this patient was admitted to hospital for more than 48 hours now and seemed to have shown clinical response to initial supportive treatment. PLAN: 1. We will keep the patient on Lovenox and Solu-Medrol. 2. We will add zinc and vitamin C. 3. Today being day 10 of symptom onset, she is out of the therapeutic window for benefit from the remdesivir. 4. Droplet isolation and respiratory support. 5. Will follow clinical condition and further adjust medication if needed. Thank you for this consultation. Will follow this patient along with you. GEOFFREY / JEOVANYN: [id number] /
[2020-07-10 07:04] LABS: Glucose,Whole Blood 157 mg/dL (75-99)
[2020-07-10] MEDS: ATORVASTATIN 20 MG TAB PO SCH (08:06)
[2020-07-10] MEDS: ASPIRIN 81 MG PO SCH (08:06)
[2020-07-10] MEDS: CHOLECALCIFEROL 25 MCG (1000 IU) TABLET PO SCH (08:06)
[2020-07-10] MEDS: PIOGLITAZONE 30 MG TAB PO SCH (08:06)
[2020-07-10] MEDS: MULTIVITAMINS, THERA 1 EACH TAB PO SCH (08:06)
[2020-07-10] MEDS: methylPREDNISolone SOD SUCCI 40 MG/ML 1 ML VIAL IV SCH (08:06)
[2020-07-10] MEDS: SENNOSIDES 8.6 MG TAB PO SCH (08:06)
[2020-07-10] MEDS: ENOXAPARIN 30 MG/0.3 ML SYRINGE SQ SCH (08:06)
[2020-07-10] MEDS: INSULIN ASPART (NovoLOG) 100 UNIT/ML VIAL SQ SCH ×3 (08:07→17:42)
[2020-07-10] MEDS: ALBUTEROL HFA INHALER INHALATION PRN (08:20)
[2020-07-10] MEDS: FLUTICASONE 110 MCG INHALER INHALATION SCH (08:20)
[2020-07-10] MEDS ORDERED: ZINC SULFATE 220 MG CAP PO SCH (09:00)
[2020-07-10] MEDS ORDERED: ASCORBIC ACID 500 MG TAB PO SCH (09:00)
[2020-07-10 11:23] LABS: Basophils # (A) 0.02 X 10*3/uL (0.00-0.10); Basophils % (A) 0.2 %; Eosinophils # (A) 0 X 10*3/uL (0.04-0.35); Eosinophils % (A) 0 %; HCT 33.7 % (37.2-46.3); Lymphocytes # (A) 0.61 X 10*3/uL (0.90-5.00); Lymphocytes % (A) 6.2 %; MCH 32.4 pg (27.0-32.0); MCHC 32.6 g/dL (32.0-37.0); MCV 99.4 fL (80.0-97.0); Mean Platelet Volume 11.9 fL (9.5-12.2); Monocytes # (A) 0.42 X 10*3/uL (0.20-1.00); Monocytes % (A) 4.3 %; Neutrophils # (A) 8.71 X 10*3/uL (1.80-7.70); Neutrophils % (A) 88.1 %; Platelet Count 118 X 10*3/uL (140-440); RBC 3.39 X 10*6/uL (4.10-5.20); RDW 13.8 % (11.5-14.5); WBC 9.88 X 10*3/uL (4.50-10.00)
[2020-07-10 11:48] LABS: Glucose,Whole Blood 152 mg/dL (75-99)
[2020-07-10 12:38] LABS: African American GFR (CKD) 41.6 (60.0-200.0); Anion Gap 10.9 mmol/L (4.00-12.00); BUN/Creat Ratio 37.86 Ratio (12.00-20.00); C Reactive Protein 1.7 mg/dL (0.0-0.8); Calcium 9.5 mg/dL (8.7-10.3); Carbon Dioxide 19.1 mmol/L (21.6-31.8); Non-African American GFR(CKD) 35.9 (60.0-200.0); Potassium 4.9 mmol/L (3.5-5.5); Total Bilirubin 0.3 mg/dL (0.3-1.2)
[2020-07-10 13:55] VITALS: BP 120/80; PULSE 51; RESP 18; TEMP 97.4
--- NOTE | 2020-07-10 14:50 | P.PN ---
Subjective Progress Note Date: 07/10/20 Principal diagnosis: Covid 19 infection Acute COPD exacerbation Tracheobronchitis Morbid obesity History of COPD and chronic hypoxic respiratory failure on half liter oxygen Likely sleep disorder breathing and sleep apnea 07/10/2020, patient seen eval examined during the rounds shortness of breath improved cuff congestion is improved less wheezy, oxygen saturation continued to improve now, hemodynamically stable with saturation are 98% on room air,, agree with discharge planning with oral steroids like Decadron 6 mg daily for 10 days with follow-up on outpatient basis 07/09/2020, patient seen eval examined during the rounds labs reviewed medications reviewed slightly less short of breath with diffuse wheezing, patient has been noted to have bilateral patchy infiltrate consistent with cord pneumonia on CAT scan, computed tomography scan reviewed, today patient is afebrile, continued to be bradycardic, oxygen saturation slightly better 95% on 2 L oxygen, resting aches and pain improved and better than before, it appears that patient had vaccine and covert 19 exposure along same time frame this is a 79-year-old female with history of the morbid obesity sleep disorder breathing and sleep apnea has been on half a liter oxygen, she presented with 2 day history of cough shortness of breath she had her first shot of covert vaccine a week ago she has been on oral steroids without improvement in symptoms as out patient came into the hospital for further evaluation, her significant history is for COPD dyslipidemia morbid obesity hypertension hypertensive car diovascular disease hypothyroidism and type 2 diabetes mellitus, currently she is on 2 L nasal cannula oxygen she is constantly coughing short of breath on minimal activity and exertion and very weak and exhausted, her covid testing came back positive Objective - Vital Signs Vital signs: Vital Signs Temp 97.4 F L 07/10/20 13:54 Pulse 51 L 07/10/20 13:54 Resp 18 07/10/20 13:54 BP 120/80 07/10/20 13:54 Pulse Ox 98 07/10/20 13:54 Intake & Output 07/09/20 07/10/20 07/10/20 18:59 06:59 18:59 Other: Voiding Method Toilet - Exam - Constitutional General appearance: disheveled, obese - EENT Eyes: PERRLA Ears: bilateral: normal - Neck Neck: normal ROM Carotids: bilateral: upstroke normal Thyroid: bilateral: normal size - Respiratory Respiratory: bilateral: wheezing - Cardiovascular Rhythm: regular Heart sounds: normal: S1, S2 - Gastrointestinal General gastrointestinal: distended, soft - Neurologic Neurologic: CNII-XII intact - Musculoskeletal Musculoskeletal: gait normal, generalized weakness, strength equal bilaterally - Psychiatric Psychiatric: A&O x's 3, appropriate affect, intact judgment & insight - Labs CBC & Chem 7: 07/10/20 06:47 07/10/20 06:47 Labs: Abnormal Lab Results - Last 24 Hours (Table) 07/09/20 07/09/20 07/10/20 Range/Units 16:41 20:34 06:47 RBC 3.39 L (4.10-5.20) X 10*6/uL Hgb 11.0 L (12.0-15.0) g/dL Hct 33.7 L (37.2-46.3) % MCV 99.4 H (80.0-97.0) fL MCH 32.4 H (27.0-32.0) pg Plt Count 118 L (140-440) X 10*3/uL Immature Gran # 0.12 H (0.00-0.04) X 10*3/uL Neutrophils # 8.71 H (1.80-7.70) X 10*3/uL Lymphocytes # 0.61 L (0.90-5.00) X 10*3/uL Eosinophils # 0 L (0.04-0.35) X 10*3/uL D-Dimer (<0.60) mg/L FEU Carbon Dioxide (21.6-31.8) mmol/L BUN (9.0-27.0) mg/dL Est GFR (CKD-EPI)AfAm (60.0-200.0) Est GFR (CKD-EPI)NonAf (60.0-200.0) BUN/Creatinine Ratio (12.00-20.00) Ratio Glucose (70-110) mg/dL POC Glucose (mg/dL) 201 H 162 H (75-99) mg/dL AST (13-35) U/L Lactate Dehydrogenase (120-246) U/L C-Reactive Protein (0.0-0.8) mg/dL Total Protein (6.2-8.2) g/dL 07/10/20 07/10/20 07/10/20 Range/Units 06:47 06:47 07:02 RBC (4.10-5.20) X 10*6/uL Hgb (12.0-15.0) g/dL Hct (37.2-46.3) % MCV (80.0-97.0) fL MCH (27.0-32.0) pg Plt Count (140-440) X 10*3/uL Immature Gran # (0.00-0.04) X 10*3/uL Neutrophils # (1.80-7.70) X 10*3/uL Lymphocytes # (0.90-5.00) X 10*3/uL Eosinophils # (0.04-0.35) X 10*3/uL D-Dimer 1.40 H (<0.60) mg/L FEU Carbon Dioxide 19.1 L (21.6-31.8) mmol/L BUN 53.0 H (9.0-27.0) mg/dL Est GFR (CKD-EPI)AfAm 41.6 L (60.0-200.0) Est GFR (CKD-EPI)NonAf 35.9 L (60.0-200.0) BUN/Creatinine Ratio 37.86 H (12.00-20.00) Ratio Glucose 176 H (70-110) mg/dL POC Glucose (mg/dL) 157 H (75-99) mg/dL AST 49 H (13-35) U/L Lactate Dehydrogenase 378 H (120-246) U/L C-Reactive Protein 1.7 H (0.0-0.8) mg/dL Total Protein 6.0 L (6.2-8.2) g/dL 07/10/20 Range/Units 11:47 RBC (4.10-5.20) X 10*6/uL Hgb (12.0-15.0) g/dL Hct (37.2-46.3) % MCV (80.0-97.0) fL MCH (27.0-32.0) pg Plt Count (140-440) X 10*3/uL Immature Gran # (0.00-0.04) X 10*3/uL Neutrophils # (1.80-7.70) X 10*3/uL Lymphocytes # (0.90-5.00) X 10*3/uL Eosinophils # (0.04-0.35) X 10*3/uL D-Dimer (<0.60) mg/L FEU Carbon Dioxide (21.6-31.8) mmol/L BUN (9.0-27.0) mg/dL Est GFR (CKD-EPI)AfAm (60.0-200.0) Est GFR (CKD-EPI)NonAf (60.0-200.0) BUN/Creatinine Ratio (12.00-20.00) Ratio Glucose (70-110) mg/dL POC Glucose (mg/dL) 152 H (75-99) mg/dL AST (13-35) U/L Lactate Dehydrogenase (120-246) U/L C-Reactive Protein (0.0-0.8) mg/dL Total Protein (6.2-8.2) g/dL Assessment and Plan Assessment: Covid 19 pneumonia Acute hypoxic respiratory failure Acute COPD exacerbation Tracheobronchitis Morbid obesity History of COPD and chronic hypoxic respiratory failure on half liter oxygen Likely sleep disorder breathing and sleep apnea Plan: Continue IV steroids, can be changed to oral Decadron 6 mg daily for 10 days Follow inflammatory parameters Computed tomography scan of the chest to look for cold with 19 pneumonia/interstitial infiltrate reviewed Continue bronchodilator Lovenox subcu 30 twice a day, can be changed to aspirin once daily with food at the time of discharge Agree with discharge planning if remains stable Time with Patient: Greater than 30
--- NOTE | 2020-07-10 16:57 | PN ---
PROGRESS NOTE DATE OF SERVICE: 07/10/2020 REASON FOR FOLLOWUP: COVID-19 infection. INTERVAL HISTORY: The patient is currently afebrile. The patient is breathing comfortably, currently on room air. Denies having any chest pain or shortness of breath or cough. No abdominal pain. No diarrhea. PHYSICAL EXAMINATION: Blood pressure 120/80 with a pulse of 51, temperature 97.4. She is 98% on room air. General description is an elderly female up in the chair in no distress. RESPIRATORY SYSTEM: Unlabored breathing with decreased intensity of breath sounds. No wheeze. HEART: S1, S2. Regular rate and rhythm. ABDOMEN: Soft. No tenderness. LABS: Hemoglobin is 11, white count 9.88, creatinine is 1.4. DIAGNOSTIC IMPRESSION AND PLAN: Patient with acute COVID-19 pneumonia in this patient who seems to have shown overall clinical improvement. She is currently on Lovenox, Solu-Medrol, zinc and ascorbic acid; to continue. Transition to a short course of oral prednisone on discharge no need for any antiviral. Continue supportive care. MMODL / IJN: [id number] /
--- NOTE | 2020-07-10 17:15 | P.DS ---
Providers Date of admission: 07/07/20 17:43 Expected date of discharge: 07/10/20 Attending physician: Jl Gary Consults: 07/07/20 17:44 Consult Physician Routine Consulting Provider: Bryon Lazar Consult Reason/Comments: covid 19 Do you want consulting provider notified?: Yes 07/09/20 11:10 Consult Physician Urgent Consulting Provider: Candida Alan Consult Reason/Comments: covid 19 PNA Do you want consulting provider notified?: Yes Primary care physician: Rosalba Medrano Hospital Course: Final diagnosis -Covid 19 pneumonia: Patient is bit hypoxic and requiring 2 L of oxygen -COPD with mild acute exacerbation -Type 2 diabetes mellitus -Acute renal failure: Secondary to hypotension and anti-hypertensive medications -Gastroesophageal reflux disease -Hyperlipidemia -Hypertension -Possible chronic kidney disease from diabetic nephropathy 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 Patient will follow-up with Dr. Medrano in the outpatient setting upon discharge. Patient is to follow up with Dr. Lazar pulmonary. Patient will continue on on prednisone taper along with vitamin and zinc supplements. She will have home care in the outpatient setting. Total time taken is greater than 35 minutes. Hospital course 73-year-old female came in with complaints of generalized weakness, cough which started about 10 days ago a day after she took her Covid 19 vaccine. Patient's has similar symptoms was diagnosed with the Covid as well and patient does have positive Covid as well. Her primary care physician gave her a course of steroids without any significant improvement because of which patient came to ER. She and quit 40 years ago does have history of COPD uses half a liter of oxygen at home presently on 2 L. Patient was started on Decadron. She is also hypotensive hyponatremic patient was on Lasix at home along with the lisinopril and hydrochlorothiazide 07/09/2020 Patient is seen and evaluated and follow-up this morning currently sleeping but easily arousable. Patient being closely monitored and followed by pulmonary Dr. Lazar. Patient is maintained on IV steroids along with inhalers and will continue at this time. Infectious disease consulted and pending at this time. Patient's creatinine is slightly worse today at 1.37 and will continue to hold Lasix and antihypertensive medications. Will discuss with nursing staff about a home O2 eval and instructed the patient to increase activity as tolerated. 07/10/2020 Patient is seen and evaluated with no acute overnight issues. Patient is breathing more comfortably and currently on room air although does drop down to 88% with minimal exertion. Patient currently does have oxygen with her CPAP at night at home although will require 2 L of oxygen upon discharge secondary to COPD and Covid 19. Patient will continue on prednisone taper along with vitamin supplements. Patient instructed to follow-up with pulmonary and her primary care provider upon discharge. Patient should keep appointment for second Covid 19 shot. Currently no reports of chest pain, worsening shortness of breath, or palpitations. Patient is afebrile. No reports of nausea or vomiting and patient is tolerating diet. On exam vital signs are stable. Cardio S1, S2 are muffled. Respiratory system shows diminished breath sounds at the bases with no wheezing or rhonchi noted. Abdomen is soft and nontender. Nervous system shows no focal deficits. Please refer to medication reconciliation sheet for a list of medications. Patient Condition at Discharge: Fair Plan - Discharge Summary Discharge Rx Participant: Yes New Discharge Prescriptions: New Zinc Sulfate [Orazinc] 220 mg PO DAILY 30 Days #30 cap predniSONE 10 mg PO DIRECTED #30 tab Sennosides [Senokot] 8.6 mg PO BID #20 tab Acetaminophen Tab [Tylenol] 650 mg PO Q6HR PRN tab PRN Reason: Fever And/ Or Pain Ascorbic Acid [Vitamin C] 1,000 mg PO DAILY 30 Days #60 tab Continue Ergocalciferol [Vitamin D2 (DRISDOL)] 50,000 unit PO Q14D Rosuvastatin [Crestor] 10 mg PO DAILY Multivitamins, Thera [Multivitamin (formulary)] 1 tab PO DAILY Aspirin 81 mg PO DAILY Budesonide [Pulmicort] 0.5 mg INHALATION RT-BID PRN PRN Reason: Shortness Of Breath ALPRAZolam [Xanax] 0.25 mg PO HS PRN PRN Reason: Insomnia Vitamin B Complex 1 cap PO DAILY Gabapentin [Neurontin] 300 mg PO HS PRN PRN Reason: FOOT PAIN Albuterol Nebulized [Ventolin Nebulized] 2.5 mg INHALATION RT-DAILY PRN PRN Reason: Dyspnea Turmeric Root Extract [Turmeric] 500 mg PO DAILY Cholecalciferol [Vitamin D3 (25 Mcg = 1000 Iu)] 25 mcg PO DAILY Pioglitazone [Actos] 30 mg PO DAILY Levothyroxine Sodium [Synthroid] 75 mcg PO DAILY Discontinued Lisinopril-Hctz 10-12.5 mg [Zestoretic 10-12.5] 1 tab PO DAILY Furosemide [Lasix] 20 mg PO DAILY Discharge Medication List Ergocalciferol [Vitamin D2 (DRISDOL)] 50,000 unit PO Q14D 10/23/14 [History] Rosuvastatin [Crestor] 10 mg PO DAILY 10/23/14 [History] ALPRAZolam [Xanax] 0.25 mg PO HS PRN 12/23/15 [History] Aspirin 81 mg PO DAILY 12/23/15 [History] Budesonide [Pulmicort] 0.5 mg INHALATION RT-BID PRN 12/23/15 [History] Multivitamins, Thera [Multivitamin (formulary)] 1 tab PO DAILY 12/23/15 [History] Vitamin B Complex 1 cap PO DAILY 12/23/15 [History] Gabapentin [Neurontin] 300 mg PO HS PRN 05/28/16 [History] Albuterol Nebulized [Ventolin Nebulized] 2.5 mg INHALATION RT-DAILY PRN 06/30/16 [History] Cholecalciferol [Vitamin D3 (25 Mcg = 1000 Iu)] 25 mcg PO DAILY 07/07/20 [History] Levothyroxine Sodium [Synthroid] 75 mcg PO DAILY 07/07/20 [History] Pioglitazone [Actos] 30 mg PO DAILY 07/07/20 [History] Turmeric Root Extract [Turmeric] 500 mg PO DAILY 07/07/20 [History] Acetaminophen Tab [Tylenol] 650 mg PO Q6HR PRN tab 07/10/20 [Rx] Ascorbic Acid [Vitamin C] 1,000 mg PO DAILY 30 Days #60 tab 07/10/20 [Rx] Sennosides [Senokot] 8.6 mg PO BID #20 tab 07/10/20 [Rx] Zinc Sulfate [Orazinc] 220 mg PO DAILY 30 Days #30 cap 07/10/20 [Rx] predniSONE 10 mg PO DIRECTED #30 tab 07/10/20 [Rx] Follow up Appointment(s)/Referral(s): [facility], [NON-STAFF] - As Needed Bryon Lazar MD [STAFF PHYSICIAN] - 2 Weeks (Follow up in 2-4 weeks. office is closed, please call tomorrow to set up appointment.) Rosalba Medrano MD [Primary Care Provider] - 07/14/20 9:00 am (TELEPHONE VISIT! Please call office in AM on 07/14 and they will instruct you further. Thank you.) Patient Instructions/Handouts: Coronavirus Disease 2019 (COVID-19) Activity/Diet/Wound Care/Special Instructions: Oxygen ordered through [facility]: [phone] Activity Limited until follow-up Follow-up with primary care provider upon discharge Follow-up pulmonary outpatient Continue prednisone taper Continue vitamin supplements Continue to monitor for fever and treat with Tylenol Continue current diet Continue holding Lasix until follow-up with primary Encourage fluids and rest Continue with breathing treatments Keep appointment for next Covid immunization Discharge Disposition: HOME WITH HOME HEALTH SERVICES
[2020-07-14] MEDS ORDERED: ERGOCALCIFEROL 1,250 MCG (50,000 IU) CAPSULE PO SCH (09:00)
== END 2020-07-10 18:03 | disposition home health service (06) | DRG 177 ==
LOC: EC 15:53 → 4SSUR 17:43
PROVIDERS: ADMIT Hospitalist; ATTEND Hospitalist
DX: U07.1 COVID-19 (principal); J12.82 Pneumonia due to coronavirus disease 2019; J96.21 Acute and chronic respiratory failure with hypoxia; J44.0 Chronic obstructive pulmonary disease with (acute) lower respiratory infection; J44.1 Chronic obstructive pulmonary disease with (acute) exacerbation; N17.9 Acute kidney failure, unspecified; E87.1 Hypo-osmolality and hyponatremia; K21.9 Gastro-esophageal reflux disease without esophagitis; D72.810 Lymphocytopenia; E03.9 Hypothyroidism, unspecified; E11.22 Type 2 diabetes mellitus with diabetic chronic kidney disease; I13.10 Hypertensive heart and chronic kidney disease without heart failure, with stage 1 through stage 4 chronic kidney disease, or unspecified chronic kidney disease; N18.2 Chronic kidney disease, stage 2 (mild); Z79.84 Long term (current) use of oral hypoglycemic drugs; E66.01 Morbid (severe) obesity due to excess calories; E78.5 Hyperlipidemia, unspecified; E87.70 Fluid overload, unspecified; F40.240 Claustrophobia; G47.30 Sleep apnea, unspecified; Z99.89 Dependence on other enabling machines and devices; Z99.81 Dependence on supplemental oxygen; Z79.82 Long term (current) use of aspirin; Z79.890 Hormone replacement therapy; T46.5X5A Adverse effect of other antihypertensive drugs, initial encounter; T50.2X5A Adverse effect of carbonic-anhydrase inhibitors, benzothiadiazides and other diuretics, initial encounter; Z79.899 Other long term (current) drug therapy; Z80.9 Family history of malignant neoplasm, unspecified; Z82.49 Family history of ischemic heart disease and other diseases of the circulatory system; Z82.5 Family history of asthma and other chronic lower respiratory diseases; Z83.3 Family history of diabetes mellitus; Z85.3 Personal history of malignant neoplasm of breast; Z87.440 Personal history of urinary (tract) infections; Z87.891 Personal history of nicotine dependence; Z90.12 Acquired absence of left breast and nipple; H40.9 Unspecified glaucoma; Z87.01 Personal history of pneumonia (recurrent); M19.90 Unspecified osteoarthritis, unspecified site; Z88.8 Allergy status to other drugs, medicaments and biological substances
CPT/HCPCS: 36415; 71045; 71250; 80048; 80053; 82728; 83036; 83615; 83880; 85025; 85379; 86140; 87635; 93005; 94640; 94760; 99285

== ENCOUNTER → 2021-03-30 | Outpatient (CLI) | payer MEDICARE, BC ==
--- NOTE | 2021-03-31 08:47 | MM ---
Reason for exam: additional evaluation requested from abnormal screening. Last mammogram was performed 1 year ago. History: Patient is postmenopausal, has history of breast cancer at age 59, and history of other cancer. Family history of breast cancer in maternal grandmother at age 87. Implant in the left breast, 1999. Excisional biopsy of the left breast, 1999. Mastectomy of the left breast, 1999. Chemotherapy. TRAM Reconstruction of the left breast. Took hormonal contraceptives for 2 years beginning at age 31. Took estrogen for 10 years beginning at age 57. Took tamoxifen for 5 years beginning at age 61. Physical Findings: Nurse did not find any significant physical abnormalities on exam. MG 3D Diag Mammo W/Cad RT CC and MLO view(s) were taken of the right breast. Prior study comparison: March 28, 2020, right breast MG 3d diag mammo w/cad RT. March 27, 2019, right breast MG 3d diag mammo w/cad RT. The breast tissue is heterogeneously dense. This may lower the sensitivity of mammography. Stable benign calcifications. There is no discrete abnormality. No significant new findings when compared with previous films. These results were verbally communicated with the patient and result sheet given to the patient on 03/30/21. ASSESSMENT: Benign, BI-RAD 2 RECOMMENDATION: Follow-up diagnostic mammogram of the right breast in 1 year.
== END | disposition home or self-care (01) ==
LOC: RADMAMWWP 15:02
PROVIDERS: ATTEND Internal Medicine
DX: R92.1 Mammographic calcification found on diagnostic imaging of breast (principal); R92.2 Inconclusive mammogram; Z85.3 Personal history of malignant neoplasm of breast; Z80.3 Family history of malignant neoplasm of breast; Z78.0 Asymptomatic menopausal state
CPT/HCPCS: 77065; G0279; 77061

== ENCOUNTER → 2022-03-31 | Outpatient (CLI) | payer MEDICARE, BC ==
--- NOTE | 2022-03-31 11:54 | MM ---
Reason for Exam: Hx of breast cancer, mastectomy. Last screening mammogram was performed 12 month(s) ago. Patient History: Menarche at age 13. First Full-Term at age 27. Postmenopausal. Patient has history of breast feeding. Breast cancer, left, age 59. Other cancer. Estrogen, starting at age 57 for 10 years. Hormonal Contraceptives, starting at age 31 for 2 years. Tamoxifen for 5 years from age 61 until age 65. 1999, Mastectomy on the Left side. 1999, Excisional Biopsy on the Left side. TRAM Reconstruction, left. Chemotherapy. 1999, Implant on the left side. Maternal grandmother had breast cancer, age 87. Niece had breast cancer at or over age 50. Prior Study Comparison: 03/15/2016 Right Diagnostic Mammogram, LOCATED WITHIN [facility]. 03/22/2017 Right Diagnostic Mammogram, LOCATED [facility]IN [facility]. 03/23/2018 Right Diagnostic Mammogram, LOCATED [facility] 03/27/2019 Right Diagnostic Mammogram, LOCATED [facility]. 03/28/2020 Right Diagnostic Mammogram, LOCATED [facility]. 03/30/2021 Right Diagnostic Mammogram, LOCATED WITHIN [facility]. Tissue Density: Right: There are scattered fibroglandular densities. Findings: Analyzed By CAD. No suspicious masses, calcifications or distortions. Scattered benign calcifications present. Overall Assessment: Benign, BI-RAD 2 Management: Screening Mammogram of the right breast in 1 year. A clinical breast exam by your physician is recommended on an annual basis and results should be correlated with mammographic findings. This exam should not preclude additional follow-up of suspicious palpable abnormalities. Results were given to the patient verbally at the time of exam. Electronically signed and approved by: Costa Leon DO
== END | disposition home or self-care (01) ==
LOC: RADMAMWWP 10:56
PROVIDERS: ATTEND Internal Medicine
DX: R92.8 Other abnormal and inconclusive findings on diagnostic imaging of breast (principal); Z78.0 Asymptomatic menopausal state; Z80.3 Family history of malignant neoplasm of breast; Z85.3 Personal history of malignant neoplasm of breast
CPT/HCPCS: 77065; G0279; 77061

== ENCOUNTER → 2022-08-12 | Outpatient (CLI) | payer MEDICARE, BC ==
--- NOTE | 2022-08-12 15:04 | BD ---
EXAMINATION TYPE: Axial Bone Density DATE OF EXAM: 08/12/2022 CLINICAL HISTORY: 81 year old Female. ICD-10 CODE: N95.8 MENOPAUSAL AND PERIMENOPAUSAL DISORDERS Height: 62 Weight: 241.4 FRAX RISK QUESTIONS: Alcohol (3 or more units per day): no Family History (Parent hip fracture): no Glucocorticoids (More than 3mos): no (Ex: prednisone, prednisolone, methylprednisolone, dexamethasone, and hydrocortisone). History of Fracture in Adulthood: yes Secondary Osteoporosis: 1. Type 1 Diabetes: no 2. Hyperthyroidism: no 3. Menopause before 45: no 4. Malnutrition: no 5. Chronic liver disease: no Rheumatoid Arthritis: no Current Tobacco Use: no RISK FACTORS HISTORY OF: History of Wrist Fracture: left When: 1991 Surgery to Spine/Hip(right/left)/Wrist (right/left): no Family History of Osteoporosis: no Diet low in dairy products/other sources of calcium: yes Postmenopausal woman: yes Lost more than 2 inches in height since high school: yes MEDICATIONS: Thyroid Medications: levothyroxine How Lon years Additional History: EXAM MEASUREMENTS: Bone mineral densitometry was performed using the [employer] System. Bone mineral density as measured about the Lumbar spine is: ----- L1-L4(G/cm2): 1.020 T Score Values are as follows: ----- L1: -1.1 ----- L2: -1.7 ----- L3: -1.9 ----- L4: -0.9 ----- L1-L4: -1.3 Z Score Values are as follows: ----- L1: -0.5 ----- L2: -11 ----- L3: -1.2 ----- L4: -0.2 ----- L1-L4: -0.6 Bone mineral density has: decreased -2.9 % since study of: 01.25.2008 Bone mineral density about the R hip (g/cm2): 0.938 Bone mineral density about the L hip (g/cm2): 0.954 T Score values are as follows: -----R Neck: -1.0 -----L Neck: -1.2 -----R Total: -0.5 -----L Total: -0.4 Z Score values are as follows: -----R Neck: 0.4 -----L Neck: 0.2 -----R Total: 0.7 -----L Total: 0.8 Bone mineral density has: decreased -13.5 % since study of: 01.25.2008 FRAX%s: The graph provided illustrates a 15.8% chance for a major osteoporotic fx and a 2.8% chance f or the hips probability for fx in 10 years time. IMPRESSION: Osteopenia (T Score between -2.5 and -1). There is slightly increased risk of fracture and the patient may be considered for treatment. Re-Screen 2-5 years. NOTE: T-SCORE=SD OF THE YOUNG ADULT MEAN.
== END | disposition home or self-care (01) ==
LOC: RADBDWWP 14:31
PROVIDERS: ATTEND Internal Medicine
DX: M85.89 Other specified disorders of bone density and structure, multiple sites (principal); N95.8 Other specified menopausal and perimenopausal disorders
CPT/HCPCS: 77080

== ENCOUNTER → 2022-09-01 | Outpatient (CLI) | payer MEDICARE, BC ==
--- NOTE | 2022-09-01 14:39 | NM ---
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 Images acq uired 3 hours post injection. FINDINGS: There is intense abnormal uptake involving bilateral shoulder again greater on the left which could a ppears to correspond by chest x-ray 2 posterior arthritic changes Moderate intensity uptake involving the thoracic spine and lower lumbar spine which is nonspecific bu t likely degenerative.. There is intense abnormal uptake involving the bilateral medial margin knee, and bilateral feet findi ngs are most suggestive of post arthritic changes. There is intense abnormal uptake involving the left sacrum and iliac bone which is nonspecific. IMPRESSION: 1. Intense abnormal uptake involving the left sacrum and iliac bone which is nonspecific recommend x- ray correlation. 2. Abnormal uptake involving the thoracic and lower lumbar spine likely degenerative could be correla trini with x-ray or a 3. Abnormal uptake involving the bilateral knees and feet most likely post arthritic.
== END | disposition home or self-care (01) ==
LOC: RADNMMAIN 10:05
PROVIDERS: ATTEND Physical Medicine & Rehabilitation
DX: M47.817 Spondylosis without myelopathy or radiculopathy, lumbosacral region (principal); M48.062 Spinal stenosis, lumbar region with neurogenic claudication; M43.16 Spondylolisthesis, lumbar region; R93.7 Abnormal findings on diagnostic imaging of other parts of musculoskeletal system
CPT/HCPCS: 78306; A9503

== ENCOUNTER → 2022-10-25 | Outpatient (CLI) | payer MEDICARE, BC ==
--- NOTE | 2022-10-25 14:05 | CT ---
EXAMINATION TYPE: CT ChestAbdPelvis wo con DATE OF EXAM: 10/25/2022 COMPARISON: 07/08/20 HISTORY: obs for mets, poss bone ca. oral only. pt unable to raise arms above head CT DLP: 1411mGycm Unenhanced CT of the Chest, Abdomen and Pelvis Unenhanced CT of the chest ,abdomen and pelvis is performed. The lack of intravenous contrast limits evaluation of the solid and hollow viscera. Oral contrast: yes CT Chest: LUNGS: The lungs are clear and free of infiltrate or atelectasis. No pulmonary nodule or mass is det ected. No pleural effusion. There is scattered subpleural fibrosis. MEDIASTINUM: Thoracic aorta is of normal caliber. The heart is mildly enlarged. Coronary artery ca lcifications seen. No evidence for mediastinal mass or adenopathy. HILAR STRUCTURES: No evidence for mass. No hilar adenopathy is appreciated. Calcified hilar lymph no aime compatible with remote granulomatous disease. OTHER: No significant abnormality. CONTRAST CT ABDOMEN AND PELVIS: LIVER/GB: No calcified gallstones. No space occupying hepatic lesion. Biliary tree is of normal ca liber. PANCREAS: No inflammation. No distinct mass. SPLEEN: No splenic enlargement. No lesion seen. ADRENALS: No nodule. No thickening. KIDNEYS/BLADDER: No hydronephrosis. No nephrolithiasis. No disctinct renal mass. BOWEL: Normal appendix. Normal bowel caliber. No inflammation. GENITAL ORGANS: No gross abnormality. LYMPH NODES: No greater than 1cm abdominal or pelvic lymph nodes are appreciated. AORTA: No significant abnormality. OSSEOUS STRUCTURES: There is mild nonacute loss of height involving T7 and T8. Note streak artifact f rom the patient's bra and inability to raise the arms limits evaluation of the mid thoracic spine. Th ere is grade 1 anterolisthesis L5 on S1 measuring 4 mm with vacuum disc. There is nondisplaced fractu re through the left ilium seen best on image 92 sequence 3. There is also an area of sclerosis involv ing the left ilium adjacent to the SI joint with vacuum changes seen likely degenerative in nature. M etastatic lesion is difficult to exclude although felt to be unlikely. Continued follow-up is advised . The remaining osseous structures appear unremarkable. OTHER: No significant additional abnormality is seen. IMPRESSION: 1. Nondisplaced fracture left ilium. 2.There is also an area of sclerosis involving the left ilium adjacent to the SI joint with vacuum ch anges seen likely degenerative in nature. Metastatic lesion is difficult to exclude although felt to be unlikely. Continued follow-up is advised.
== END | disposition home or self-care (01) ==
LOC: RADCTMAIN 11:16
PROVIDERS: ATTEND Internal Medicine Hematology & Oncology
DX: S32.315A Nondisplaced avulsion fracture of left ilium, initial encounter for closed fracture (principal); C50.919 Malignant neoplasm of unspecified site of unspecified female breast
CPT/HCPCS: 71250; 74176

== ENCOUNTER → 2023-04-04 | Outpatient (CLI) | payer MEDICARE, BC ==
--- NOTE | 2023-04-12 08:48 | MM ---
Reason for Exam: Additional evaluation requested from prior study. Last screening mammogram was performed 12 month(s) ago. Patient History: Menarche at age 13. First Full-Term at age 27. Postmenopausal. Patient has history of breast feeding. Breast cancer, left, age 59. Other cancer. Previous chemotherapy at age 59. Estrogen, starting at age 57 for 10 years. Hormonal Contraceptives, starting at age 31 for 2 years. Tamoxifen for 5 years from age 61 until age 65. 1999, Mastectomy on the Left side. 1999, Excisional Biopsy on the Left side. TRAM Reconstruction, left. Chemotherapy. 1999, Implant on the left side. Maternal grandmother had breast cancer, age 87. Niece had breast cancer at or over age 50. Prior Study Comparison: 03/15/2016 Right Diagnostic Mammogram, [facility]. 03/22/2017 Right Diagnostic Mammogram, [facility]. 03/23/2018 Right Diagnostic Mammogram, [facility]. 03/27/2019 Right Diagnostic Mammogram, [facility]. 03/28/2020 Right Diagnostic Mammogram, [facility]. 03/30/2021 Right Diagnostic Mammogram, [facility]. 03/31/2022 Right MG 3D diag mammo w/cad RT, [facility]. Tissue Density: Right: There are scattered fibroglandular densities. Findings: Analyzed By CAD. Benign vascular and well cystic calcifications are redemonstrated. Subareolar asymmetric density on the cc view disperses on nipple in profile view. No significant change from prior exams. Overall Assessment: Benign, BI-RAD 2 Management: Screening Mammogram of the right breast in 1 year. . Results were given to the patient verbally at the time of exam. Patient should continue monthly self-breast exams. A clinical breast exam by your physician is recommended on an annual basis. This exam should not preclude additional follow-up of suspicious palpable abnormalities. Electronically signed and approved by: Luciana Prince M.D. Radiologist
== END | disposition home or self-care (01) ==
LOC: RADMAMWWP 13:19
PROVIDERS: ATTEND Internal Medicine
DX: R92.321 Mammographic fibroglandular density, right breast (principal); Z17.0 Estrogen receptor positive status [ER+]; Z78.0 Asymptomatic menopausal state; Z80.3 Family history of malignant neoplasm of breast
CPT/HCPCS: 77065; G0279; 77061

== ENCOUNTER 2023-07-19 16:16 | Inpatient (IN) | payer MEDICARE, BC ==
--- NOTE | 2023-07-19 17:01 | ED ---
General Adult HPI - General Chief complaint: Neuro Symptoms/Deficit Stated complaint: Lightheaded Time Seen by Provider: 07/19/23 16:26 Source: patient, EMS, RN notes reviewed Mode of arrival: EMS Limitations: no limitations - History of Present Illness Initial comments: Patient is a pleasant 82-year-old female present to the emergency department after being advised by her primary care physician. Patient admits to feeling a little bit lightheaded, minimal symptoms at this time. Patient states earlier today at her doctor's office she was walking somewhat off balance. Patient states this has been going on but mild for a couple days - Related Data Home Medications Medication Instructions Recorded Confirmed Aspirin 81 mg PO DAILY 12/23/15 09/08/21 Budesonide [Pulmicort] 0.5 mg INHALATION DIRECTED 12/23/15 09/08/21 Multivitamins, Thera [Multivitamin 1 tab PO DAILY 12/23/15 09/08/21 (formulary)] Vitamin B Complex 1 cap PO DAILY 12/23/15 09/08/21 Albuterol Nebulized [Ventolin 2.5 mg INHALATION RT-QID PRN 06/30/16 09/09/21 Nebulized] Levothyroxine Sodium [Synthroid] 75 mcg PO DAILY 07/07/20 09/08/21 Turmeric Root Extract [Turmeric] 500 mg PO DAILY 07/07/20 09/08/21 ALPRAZolam [Xanax] 0.5 mg PO DAILY PRN 09/08/21 09/08/21 Elderberry Fruit and Flower [Black 1 cap PO DAILY 09/08/21 09/08/21 Elderberry 575 mg Cap] Furosemide [Lasix] 20 mg PO DAILY 09/08/21 09/08/21 Lisinopril-Hctz 10-12.5 mg 1 tab PO DAILY 09/08/21 09/08/21 [Zestoretic 10-12.5] Oxybutynin ER [Ditropan XL] 10 mg PO DAILY PRN 09/08/21 09/09/21 Pioglitazone [Actos] 15 mg PO DAILY 09/08/21 09/08/21 Ubidecarenone [Co Q-10] 100 mg PO DAILY 09/08/21 09/08/21 Zinc 50 mg PO DAILY 05/17/22 05/17/22 predniSONE 10 mg PO DAILY 09/09/21 09/09/21 Previous Rx's Medication Instructions Recorded Ascorbic Acid [Vitamin C] 1,000 mg PO DAILY 30 Days #60 tab 07/10/20 Rosuvastatin [Crestor] 20 mg PO DAILY 30 Days #60 tab 09/10/21 Allergies Allergy/AdvReac Type Severity Reaction Status Date / Time brimonidine [From Alphagan P] Allergy Unknown ALLERGY TO Verified 09/08/21 20:06 EYE GTTS- RED & ITCHY EYES. adhesive tape Allergy Rash/Hives Verified 09/08/21 20:06 EKG ELECTRODES AdvReac Unknown Rash/Hives Uncoded 07/07/20 15:59 Review of Systems ROS Statement: Those systems with pertinent positive or pertinent negative responses have been documented in the HPI. ROS Other: All systems not noted in ROS Statement are negative. Constitutional: Denies: fever Eyes: Denies: eye pain ENT: Denies: ear pain Respiratory: Denies: cough Neurological: Reports: as per HPI Past Medical History Past Medical History: Coronary Artery Disease (CAD), Cancer, Chest Pain / Angina, Heart Failure, COPD, Diabetes Mellitus, Eye Disorder, GERD/Reflux, Hyperlipidemia, Hypertension, Myocardial Infarction (UT), Osteoarthritis (OA), Pneumonia, Renal Disease, Respiratory Disorder, Skin Disorder, Sleep Apnea/CPAP/BIPAP, Thyroid Disorder, Vascular Disorder Additional Past Medical History / Comment(s): Recent exacerbation of COPD, chronic hypoxic respiratory failure/home oxygen at 2L/NC at HS, PETRA with Cpap use, 2019 covid pneumonia, bronchitis, NIDDM type II, neuropathy occasionally in bilateral feet, bilateral lower leg/pedal edema, L breast cancer with surger y/chemo in 1999, PVD, CKD stage II, UTIs, anemia with iron infusions, migraines, chronic low back pain, past R sided sciatica, past coccyx/L wrist and rib fractures, hypothyroid, diverticular disease, hiatal hernia, bilateral eye glaucoma, seasonal allergies/sinus issues, stress incontinence, rosacea. Last Myocardial Infarction Date:: 2016 History of Any Multi-Drug Resistant Organisms: None Reported Past Surgical History: Breast Surgery, Heart Catheterization, Orthopedic Surgery Additional Past Surgical History / Comment(s): 2017 Cardiac cath/100% LAD blockage, L breast cancer with biopsy/mastectomy with flap and removal of L axillae lymph nodes, pt states surgery bilateral legs where a medication was injected to try to improve circulation/done in [place] by Dr. Ellis, bilateral rotator cuff repairs, EGD, colonoscopy, D&C, bladder sling, benign lesions removed from hands. Past Anesthesia/Blood Transfusion Reactions: Motion Sickness Additional Past Anesthesia/Blood Transfusion Reaction / Comment(s): claustrophobic in MRI machines Smoking Status: Former smoker - Past Family History Father Family Medical History: Asthma, Dementia Additional Family Medical History / Comment(s): "heart problems" Mother Family Medical History: Coronary Artery Disease (CAD), Diabetes Mellitus Additional Family Medical History / Comment(s): triple vessel cabg Brother(s) Family Medical History: Cancer, Coronary Artery Disease (CAD) Additional Family Medical History / Comment(s): a 2nd brother from cancer General Exam Limitations: no limitations General appearance: alert, in no apparent distress Head exam: Present: atraumatic, normocephalic Eye exam: Present: normal appearance, PERRL, EOMI Neck exam: Present: normal inspection. Absent: tenderness Respiratory exam: Present: normal lung sounds bilaterally Cardiovascular Exam: Present: bradycardia GI/Abdominal exam: Present: soft. Absent: tenderness Extremities exam: Present: normal inspection Neurological exam: Present: alert, CN II-XII intact. Absent: motor sensory deficit Expanded Neurological exam: Present: protecting the airway, other ( questionable minimal slurred speech) Cranial nerves: EOM's Intact: Normal Motor strength exam: RUE: 5, LUE: 4 (Chronic per patient because of shoulder problem), RLE: 5, LLE: 5 Eye Response: (4) open spontaneously Motor Response: (6) obeys commands Verbal Response: (5) oriented Psychiatric exam: Present: normal affect, normal mood Skin exam: Present: normal color Course Vital Signs 07/19/23 07/19/23 16:16 17:23 Temperature 97.3 F L Pulse Rate 46 L 43 L Respiratory 18 18 Rate Blood Pressure 129/58 113/45 O2 Sat by Pulse 97 95 Oximetry EKG Findings - EKG Results: EKG: interpreted by ERMD, sinus rhythm, normal axis, normal QRS, normal ST/T EKG shows: bradycardia Medical Decision Making - Medical Decision Making Was pt. sent in by a medical professional or institution (, PA, MANAGER OF APPLICATION DEVELOPMENT, urgent care, hospital, or intermediate...) When possible be specific @ -Patient was sent over by Dr. Medrano Did you speak to anyone other than the patient for history (EMS, parent, family, police, friend...)? What history was obtained from this source @ -No Did you review nursing and triage notes (agree or disagree)? Why? @ -I reviewed and agree with nursing and triage notes Were old charts reviewed (outside hosp., previous admission, EMS record, old EKG, old radiological studies, urgent care reports/EKG's, intermediate records)? Report findings @ -Previous chest x-ray reviewed Differential Diagnosis (chest pain, altered mental status, abdominal pain women, abdominal pain men, vaginal bleeding, weakness, fever, dyspnea, syncope, headac he, dizziness, GI bleed, back pain, seizure, CVA, palpatations, mental health, musculoskeletal)? @ -Differential Weakness: Hypoglycemia, shock, sepsis, hyponatremia, anemia, infection, UT, ETOH, adverse medicine reaction, overdose, stroke, this is not meant to be an all-inclusive list. EKG interpreted by me (3pts min.). @ -As above X-rays interpreted by me (1pt min.). @ -Chest x-ray shows no acute process CT interpreted by me (1pt min.). @ -CT of the brain does not reveal acute process U/S interpreted by me (1pt. min.). @ -None done What testing was considered but not performed or refused? (CT, X-rays, U/S, labs)? Why? @ -None What meds were considered but not given or refused? Why? @ -None Did you discuss the management of the patient with other professionals (professionals i.e. , PA, MANAGER OF APPLICATION DEVELOPMENT, lab, RT, psych nurse, social services designee, learning support aide, teacher, training officer, major case detective)? Give summary @ -Case was discussed with practitioner Mary Gutierrez, who will admit covering Dr. Medrano Was smoking cessation discussed for >3mins.? @ -No Was critical care preformed (if so, how long)? @ -No Were there social determinants of health that impacted care today? How? (Homelessness, low income, unemployed, alcoholism, drug addiction, transportation, low edu. Level, literacy, decrease access to med. care, senior care, rehab)? @ -No Was there de-escalation of care discussed even if they declined (Discuss DNR or withdrawal of care, Hospice)? DNR status @ -No What co-morbidities impacted this encounter? (DM, HTN, Smoking, COPD, CAD, Cancer, CVA, ARF, Chemo, Hep., AIDS, mental health diagnosis, sleep apnea, morbid obesity)? @ -None Was patient admitted / discharged? Hospital course, mention meds given and route, prescriptions, significant lab abnormalities, going to OR and other pertinent info. @ -Patient reevaluated resting comfortably in bed. Patient presents with lightheadedness, off-balance and slurred speech. On evaluation there is questionable mild slurred speech. Patient will be held for neurology evaluation for possible TIA. Undiagnosed new problem with uncertain prognosis? @ -No Drug Therapy requiring intensive monitoring for toxicity (Heparin, Nitro, Insulin, Cardizem)? @ -No Were any procedures done? @ -No Diagnosis/symptom? @ -TIA Acute, or Chronic, or Acute on Chronic? @ -Acute Uncomplicated (without systemic symptoms) or Complicated (systemic symptoms)? @ -Default Side effects of treatment? @ -No Exacerbation, Progression, or Severe Exacerbation? @ -No Poses a threat to life or bodily function? How? (Chest pain, USA, UT, pneumonia, PE, COPD, DKA, ARF, appy, cholecystitis, CVA, Diverticulitis, Homicidal, Suicidal, threat to staff... and all critical care pts) @ -No - Lab Data Result diagrams: 07/19/23 17:01 07/19/23 17:01 Lab Results 07/19/23 07/19/23 07/19/23 Range/Units 17:01 17:01 17:01 WBC 4.1 (3.8-10.6) k/uL RBC 3.26 L (3.80-5.40) m/uL Hgb 11.2 L (11.4-16.0) gm/dL Hct 33.2 L (34.0-46.0) % MCV 101.8 H (80.0-100.0) fL MCH 34.3 (25.0-35.0) pg MCHC 33.7 (31.0-37.0) g/dL RDW 13.8 (11.5-15.5) % Plt Count 101 L (150-450) k/uL MPV 9.6 Neutrophils % 62 % Lymphocytes % 23 % Monocytes % 9 % Eosinophils % 3 % Basophils % 0 % Neutrophils # 2.5 (1.3-7.7) k/uL Lymphocytes # 0.9 L (1.0-4.8) k/uL Monocytes # 0.4 (0-1.0) k/uL Eosinophils # 0.1 (0-0.7) k/uL Basophils # 0.0 (0-0.2) k/uL Macrocytosis Slight PT 10.6 (10.0-12.5) sec INR 1.0 (<1.2) APTT 24.9 (22.0-30.0) sec Sodium 137 (137-145) mmol/L Potassium 5.4 H (3.5-5.1) mmol/L Chloride 110 H (98-107) mmol/L Carbon Dioxide 22 (22-30) mmol/L Anion Gap 5 mmol/L BUN 48 H (7-17) mg/dL Creatinine 1.25 H (0.52-1.04) mg/dL Est GFR (CKD-EPI)AfAm 47 (>60 ml/min/1.73 sqM) Est GFR (CKD-EPI)NonAf 41 (>60 ml/min/1.73 sqM) Glucose 96 (74-99) mg/dL Calcium 9.7 (8.4-10.2) mg/dL Total Bilirubin 0.5 (0.2-1.3) mg/dL AST 35 (14-36) U/L ALT 21 (4-34) U/L Alkaline Phosphatase 59 (38-126) U/L Creatine Kinase 56 (30-135) U/L Total Protein 6.8 (6.3-8.2) g/dL Albumin 4.0 (3.5-5.0) g/dL Disposition Clinical Impression: Transient cerebral ischemia Disposition: ADMITTED IP TO THIS HOSP Is patient prescribed a controlled substance at d/c from ED?: No Referrals: Rosalba Medrano MD [Primary Care Provider] - 1-2 days Time of Disposition: 19:36
--- NOTE | 2023-07-19 17:15 | XR ---
EXAMINATION TYPE: XR chest 2V DATE OF EXAM: 07/19/2023 5:11 PM CLINICAL INDICATION:Female, 82 years old with history of altered mental status; [facility] COMPARISON: Chest radiographs from 09/08/2021. TECHNIQUE: XR chest 2V Frontal and lateral views of the chest. FINDINGS: Lungs/Pleura: There is no evidence of pleural effusion, focal consolidation, or pneumothorax. Pulmonary vascularity: Unremarkable. Heart/mediastinum: Cardiomediastinal silhouette is unremarkable. Musculoskeletal: No acute osseous pathology. IMPRESSION: 1. No acute cardiopulmonary disease process. 2. COPD changes.
[2023-07-19 17:16] LABS: Basophils % (A) 0 %; Eosinophils # (A) 0.1 k/uL (0-0.7); Eosinophils % (A) 3 %; HCT 33.2 % (34.0-46.0); HGB 11.2 gm/dL (11.4-16.0); Lymphocytes # (A) 0.9 k/uL (1.0-4.8); Lymphocytes % (A) 23 %; MCH 34.3 pg (25.0-35.0); MCHC 33.7 g/dL (31.0-37.0); MCV 101.8 fL (80.0-100.0); Macrocytosis Slight; Mean Platelet Volume 9.6; Monocytes # (A) 0.4 k/uL (0-1.0); Monocytes % (A) 9 %; Neutrophils # (A) 2.5 k/uL (1.3-7.7); Neutrophils % (A) 62 %; Platelet Count 101 k/uL (150-450); RBC 3.26 m/uL (3.80-5.40); RDW 13.8 % (11.5-15.5); WBC 4.1 k/uL (3.8-10.6)
[2023-07-19 17:23] LABS: Partial Thromboplastin Time 24.9 sec (22.0-30.0); Prothrombin Time 10.6 sec (10.0-12.5)
[2023-07-19 17:26] LABS: ALT 21 U/L (4-34); AST 35 U/L (14-36); African American GFR (CKD) 47 (>60 ml/min/1.73 sqM); Alkaline Phosphatase 59 U/L (38-126); Anion Gap 5 mmol/L; Blood Urea Nitrogen 48 mg/dL (7-17); Calcium 9.7 mg/dL (8.4-10.2); Carbon Dioxide 22 mmol/L (22-30); Chloride 110 mmol/L (98-107); Creatine Kinase 56 U/L (30-135); Glucose 96 mg/dL (74-99); Non-African American GFR(CKD) 41 (>60 ml/min/1.73 sqM); Potassium 5.4 mmol/L (3.5-5.1); Sodium 137 mmol/L (137-145); Total Bilirubin 0.5 mg/dL (0.2-1.3); Total Protein 6.8 g/dL (6.3-8.2)
--- NOTE | 2023-07-19 18:39 | CT ---
EXAMINATION TYPE: CT brain wo con CT DLP: 1084 mGycm, Automated exposure control for dose reduction was used. DATE OF EXAM: 07/19/2023 6:31 PM COMPARISON: None. CLINICAL INDICATION:Female, 82 years old with history of Neuro deficit, acute, stroke suspected, unst georgina gait/ slurred speech TECHNIQUE: Brain: Axial CT images of the brain were obtained with coronal and sagittal reformats created and rev iewed. Contrast used: None. Oral contrast used: None. FINDINGS: Extra-axial spaces: No abnormal extra-axial fluid collections. Ventricular system: Ventricles appear dilated in proportion to the degree of cerebral atrophy. Cerebral parenchyma: No increased attenuation to suggest acute intraparenchymal hemorrhage. The gra y-white matter interface appears maintained. Mild generalized brain atrophy. Scattered hypoattenuat ing areas are seen within the cerebral white matter, nonspecific but most often seen with chronic minesh rovascular ischemic changes; mild in degree. Cerebellum: No acute abnormality. Mass effect: No evidence of mass effect or midline shift. Intracranial vasculature: Atherosclerotic calcifications of the larger arteries near the skull base. Soft tissues: No acute or concerning abnormality. Visualized orbits: Orbital contents appear grossly intact. There has likely been previous lens surg gómez. Calvarium/osseous structures: No evidence of calvarial fracture. Paranasal sinuses and mastoid air cells: Clear. Mild S-shaped nasal septal deviation. MRI is more sensitive for detecting acute processes such as infarct, and may be considered if clinica lly warranted. IMPRESSION: No acute intracranial CT abnormality.
--- NOTE | 2023-07-19 19:19 | CT ---
EXAMINATION TYPE: CT angio head neck DATE OF EXAM: 07/19/2023 6:31 PM COMPARISON: Same day CT head. CLINICAL INDICATION:Female, 82 years old with history of Neuro deficit, acute, stroke suspected; PHH, unsteady gait/ slurred speech possible stroke TECHNIQUE: Axially acquired helical CT angiogram of the head and neck was obtained with contrast. Axi al images are supplemented with 3D reconstructions [facility] NASCET criteria used. Contrast used: 65 cc mL of Isovue 370 with IV Contrast, Oral contrast used: None. CT DLP: 596.7 mGycm, Automated exposure control for dose reduction was used. FINDINGS: CTA Neck: A 3 vessel aortic arch is shown. Atherosclerotic plaque with mild narrowing of the proximal left com mon carotid and subclavian arteries. No significant atherosclerosis or narrowing of the proximal vert ebral arteries. Right carotid system: The common carotid is patent. Moderately heavy atherosclerotic calcification at the bifurcation, proximal ICA and ECA with high-grade stenosis of the proximal right ECA, and 50% di ameter stenosis of the proximal ICA. ICA is thereafter patent. Left carotid system: The common carotid is patent. Common carotid is tortuous. Mostly calcified plaqu e at the proximal ICA and ECA without significant stenosis of the ECA. 50% diameter stenosis in the p roximal ICA. Vertebral arteries: There is no significant atherosclerotic plaque at the origins of the vertebral ar teries. Vertebrals are tortuous but appear patent throughout the neck without evidence of significant stenosi s. The vertebral arteries are codominant. Other: Visualized neck soft tissues show no concerning abnormality. Cervical spine shows mild/moderat e multilevel spondylosis without evidence of fracture or cortical canal stenosis. Imaged portions of the lung apices show mild scarring and pleural thickening. No infiltrate or pneumothorax. CTA Head: There are mild to moderate calcifications of the cavernous portions of the ICAs without significant s tenosis. Supraclinoid ICAs, bifurcations, ACAs, MCAs appear normally patent. Anterior communicating artery is not definitely seen. The intracranial vertebral arteries enhance normally. Basilar artery is patent and mildly tortuous. N ormal basilar bifurcation without evidence of aneurysm. Visualized proximal special procedure tech are patent. Sizable posterior communicating arteries are not readily identified. No intracranial large vessel occlusion, hemodynamically significant stenosis, aneurysm, dissection, o r arteriovenous malformation is shown. The dural venous sinuses appear grossly patent without evidence of thrombosis. Other: Please refer to same-day CT head report.. IMPRESSION: CTA neck: 1. Patent CTA neck. 2. No dissection or pseudoaneurysm detected in the carotid or vertebral arteries in the neck. 3. Atherosclerotic disease is present, with 50% diameter stenosis of the proximal ICA bilaterally. 4. High-grade stenosis of the proximal right external carotid artery. CTA head: 1. Patent CTA head. 2. No intracranial large vessel occlusion, significant stenosis, or sizable aneurysm detected in the limits of CTA.
[2023-07-19] MEDS: SODIUM CHLORIDE 0.9% 1,000 ML IV STA (20:10)
[2023-07-19] MEDS: ASPIRIN 325 MG TAB PO STA (20:13)
[2023-07-19] MEDS: SODIUM CHLORIDE 0.9% 1,000 ML IV SCH (20:14)
[2023-07-20] MEDS ORDERED: ALBUTEROL NEBULIZED 2.5 MG/3 ML INHALATION PRN (05:54)
[2023-07-20] MEDS ORDERED: BUDESONIDE 0.5 MG/2 ML NEBU INHALATION PRN (05:54)
[2023-07-20] MEDS: LEVOTHYROXINE 75 MCG TAB PO SCH (07:17)
[2023-07-20] MEDS: ATORVASTATIN 20 MG TAB PO SCH (08:43)
[2023-07-20] MEDS: ASPIRIN 325 MG TAB PO SCH (08:43)
[2023-07-20] MEDS: ASCORBIC ACID 500 MG TAB PO SCH (08:43)
[2023-07-20] MEDS: PIOGLITAZONE 15 MG TAB PO SCH (08:43)
[2023-07-20] MEDS: FOLIC ACID-VIT B COMPLEX-VIT C 1 CAP PO SCH (08:43)
[2023-07-20] MEDS: ZINC SULFATE 220 MG CAP PO SCH (08:43)
[2023-07-20] MEDS: MULTIVITAMINS, THERA 1 EACH TAB PO SCH (08:43)
[2023-07-20 08:49] LABS: Chol/HDL Ratio 2.19 Ratio; LDL Cholesterol,Calculated 76.3 mg/dL (0.0-131.0); VLDL Calculation 14.92 mg/dL (5.00-40.00)
[2023-07-20] MEDS ORDERED: NON FORMULARY DRUG (Ubidecarenone [Co Q-10] 100 MG Capsule) PO SCH (09:00)
[2023-07-20] MEDS ORDERED: NON FORMULARY DRUG (Turmeric Root Extract [Turmeric] 500 MG Capsule) PO SCH (09:00)
[2023-07-20] MEDS ORDERED: NON FORMULARY DRUG (Omega-3/Dha/Epa/Fish Oil [Omega-3 Fish Oil 1,000 Mg Sfgl] 1 EACH Capsu PO SCH (09:00)
[2023-07-20] MEDS ORDERED: OXYBUTYNIN 10 MG TAB.ER.24 PO PRN (09:00)
[2023-07-20] MEDS ORDERED: GABAPENTIN 300 MG CAP PO PRN (09:45)
[2023-07-20] MEDS ORDERED: DEXTROSE 50% SYRINGE 50 ML IVP PRN ×2 (09:50)
[2023-07-20] MEDS: FUROSEMIDE 20 MG TAB PO SCH (10:31)
[2023-07-20] MEDS: SODIUM ZIRCONIUM CYCLOSILICATE 10 GM PACKET PO ONE (10:31)
[2023-07-20 10:57] LABS: African American GFR (CKD) 54 (>60 ml/min/1.73 sqM); Anion Gap 8 mmol/L; Blood Urea Nitrogen 45 mg/dL (7-17); Calcium 9.4 mg/dL (8.4-10.2); Carbon Dioxide 19 mmol/L (22-30); Chloride 112 mmol/L (98-107); Glucose 100 mg/dL (74-99); Non-African American GFR(CKD) 47 (>60 ml/min/1.73 sqM); Potassium 5.1 mmol/L (3.5-5.1); Sodium 139 mmol/L (137-145)
[2023-07-20 11:57] LABS: Glucose,Whole Blood 135 mg/dL (70-110)
[2023-07-20] MEDS: INSULIN ASPART (NovoLOG) 100 UNIT/ML VIAL SQ SCH (11:57)
--- NOTE | 2023-07-20 12:14 | P.HPIM ---
History of Present Illness H&P Date: 07/20/23 * 82-year-old patient with past medical history significant for coronary artery disease history of chronic total occlusion of right coronary artery, history of dyslipidemia, history of breast cancer chronic kidney disease, hypertension, history of heart failure, diabetes mellitus, COPD, dyslipidemia presents to the emergency department for feeling dizzy, sent in by primary care provider for lightheadedness. Patient went to primary care office with concern for off-balance patient said this has been going on for at least 48 hours prior to presentation. Initial symptoms included dizziness, slurred speech and disequilibrium. * Workup initiated in ER included CT head which was negative for acute intracranial process * CT angio head and neck was negative for dissection high-grade stenosis of prox imal right external carotid artery noted no intracranial large vessel occlusion or stenosis noted * Blood work obtained included CBC showed WBC of 4.1 hemoglobin 11.2 platelet 101 * INR of 1, serum chemistry showed sodium 137 potassium 5.1 BUN 48 creatinine 1.25 * Patient was given IV fluids and consultation obtained from neurology echocardiogram ordered * Patient was not considered a candidate for tPA secondary to nonspecific symptoms REVIEW OF SYSTEMS: Dizziness, slurred speech, disequilibrium CONSTITUTIONAL: No fever, no malaise, no fatigue. HEENT: No recent visual problems or hearing problems. Denied any sore throat. CARDIOVASCULAR: No chest pain, orthopnea, PND, no palpitations, no syncope. PULMONARY: No shortness of breath, no cough, no hemoptysis. GASTROINTESTINAL: No diarrhea, no nausea, no vomiting, no abdominal pain. NEUROLOGICAL: No headaches, no weakness, no numbness. HEMATOLOGICAL: Denies any bleeding or petechiae. GENITOURINARY: Denies any burning micturition, frequency, or urgency. MUSCULOSKELETAL/RHEUMATOLOGICAL: Denies any joint pain, swelling, or any muscle pain. ENDOCRINE: Denies any polyuria or polydipsia. PHYSICAL EXAMINATION: GENERAL: The patient is alert and oriented x3, not in any acute distress. Well developed, well nourished. HEENT: Pupils are round and equally reacting to light. EOMI. No scleral icterus. CARDIOVASCULAR: S1 and S2 present. No murmurs, rubs, or gallops. PULMONARY: Chest is clear to auscultation, no wheezing or crackles. ABDOMEN: Soft, nontender, nondistended, normoactive bowel sounds. No palpable organomegaly. MUSCULOSKELETAL: No joint swelling or deformity. EXTREMITIES: No cyanosis, clubbing, or pedal edema. NEUROLOGICAL: Gross neurological examination did not reveal any focal deficits. SKIN: No rashes. Assessment and plan * Acute onset dizziness/disequilibrium rule out CVA versus TIA * History of sleep apnea, COPD * Chronic hypoxemic respiratory failure * Diabetes mellitus type 2 * History of coronary artery disease * Chronic kidney disease stage IIIb with acute hyperkalemia * In regards to acute neurological symptoms rule out TIA vs CVA , CT head CT angio head and neck completed. Continue aspirin, Lipitor * In regards to history of COPD continue bronchodilator protocol not in exacerbation * In regards to chronic kidney disease, lisinopril/hydrochlorothiazide,on hold intermittently for permissive hypertension * In regards to diabetes mellitus Accu-Cheks ACHS, continue correctional insulin, continue Actos * In regards to history of hypertension, lisinopril/hydrochlorothiazide on hold * Status is full code Past Medical History Past Medical History: Coronary Artery Disease (CAD), Cancer, Chest Pain / Angina, Heart Failure, COPD, Diabetes Mellitus, Eye Disorder, GERD/Reflux, Hyperlipidemia, Hypertension, Myocardial Infarction ([place]), Osteoarthritis (OA), Pneumonia, Renal Disease, Respiratory Disorder, Skin Disorder, Sleep Apnea/CPAP /BIPAP, Thyroid Disorder, Vascular Disorder Additional Past Medical History / Comment(s): Recent exacerbation of COPD, chronic hypoxic respiratory failure/home oxygen at 2L/NC at HS, PETRA with Cpap use, 2019 covid pneumonia, bronchitis, NIDDM type II, neuropathy occasionally in bilateral feet, bilateral lower leg/pedal edema, L breast cancer with surgery/chemo in 1999, PVD, CKD stage II, UTIs, anemia with iron infusions, migraines, chronic low back pain, past R sided sciatica, past coccyx/L wrist and rib fractures, hypothyroid, diverticular disease, hiatal hernia, bilateral eye glaucoma, seasonal allergies/sinus issues, stress incontinence, rosacea. Last Myocardial Infarction Date:: 2016 History of Any Multi-Drug Resistant Organisms: None Reported Past Surgical History: Breast Surgery, Heart Catheterization, Orthopedic Surgery Additional Past Surgical History / Comment(s): 2017 Cardiac cath/100% LAD blockage, L breast cancer with biopsy/mastectomy with flap and removal of L axillae lymph nodes, pt states surgery bilateral legs where a medication was injected to try to improve circulation/done in [place] by Dr. Ellis, bilateral rotator cuff repairs, EGD, colonoscopy, D&C, bladder sling, benign lesions removed from hands. Past Anesthesia/Blood Transfusion Reactions: Motion Sickness Additional Past Anesthesia/Blood Transfusion Reaction / Comment(s): claustrophobic in MRI machines Smoking Status: Former smoker - Past Family History Father Family Medical History: Asthma, Dementia Additional Family Medical History / Comment(s): "heart problems" Mother Family Medical History: Coronary Artery Disease (CAD), Diabetes Mellitus Additional Family Medical History / Comment(s): triple vessel cabg Brother(s) Family Medical History: Cancer, Coronary Artery Disease (CAD) Additional Family Medical History / Comment(s): a 2nd brother from cancer Medications and Allergies Home Medications Medication Instructions Recorded Confirmed Type Aspirin 81 mg PO DAILY 12/23/15 07/19/23 History Budesonide [Pulmicort] 0.5 mg INHALATION BID PRN 12/23/15 07/20/23 History Multivitamins, Thera [Multivitamin 1 tab PO DAILY 12/23/15 07/19/23 History (formulary)] Albuterol Nebulized [Ventolin 2.5 mg INHALATION QID PRN 06/30/16 07/20/23 His tory Nebulized] Levothyroxine Sodium [Synthroid] 75 mcg PO DAILY 07/07/20 07/19/23 History Turmeric Root Extract [Turmeric] 500 mg PO DAILY 07/07/20 07/19/23 History Ascorbic Acid [Vitamin C] 1,000 mg PO DAILY 30 Days #60 tab 07/10/20 07/19/23 Rx ALPRAZolam [Xanax] 0.5 mg PO HS 09/08/21 07/19/23 History Elderberry Fruit and Flower [Black 1 cap PO DAILY 09/08/21 07/19/23 History Elderberry 575 mg Cap] Furosemide [Lasix] 20 mg PO DAILY 09/08/21 07/19/23 History Lisinopril-Hctz 10-12.5 mg 1 tab PO DAILY 09/08/21 07/19/23 History [Zestoretic 10-12.5] Oxybutynin ER [Ditropan XL] 10 mg PO DAILY PRN 09/08/21 07/20/23 History Pioglitazone [Actos] 15 mg PO DAILY 09/08/21 07/19/23 History Ubidecarenone [Co Q-10] 100 mg PO DAILY 09/08/21 07/19/23 History Zinc 50 mg PO DAILY 09/08/21 07/19/23 History Alendronate Sodium 70 mg PO FR 07/19/23 07/19/23 History Ergocalciferol (Vitamin D2) 1,250 mcg PO Q14D 07/19/23 07/19/23 History [Drisdol (50,000 Iu)] Gabapentin 300 mg PO DAILY PRN 07/19/23 07/20/23 History [place]-3/Dha/Epa/Fish Oil [[place]-3 1 cap PO DAILY 07/19/23 07/19/23 History Fish Oil 1,000 mg Sfgl] Rosuvastatin [Crestor] 10 mg PO DAILY 07/19/23 07/19/23 History Super B Complex 1 cap PO DAILY 07/19/23 07/19/23 History calcitrioL [Rocaltrol] 0.25 mcg PO MOWE 07/19/23 07/19/23 History Allergies Allergy/AdvReac Type Severity Reaction Status Date / Time brimonidine [From Alphagan P] Allergy Unknown ALLERGY TO Verified 07/19/23 20:05 EYE GTTS- RED & ITCHY EYES. adhesive tape Allergy Rash/Hives Verified 07/19/23 20:05 EKG ELECTRODES AdvReac Unknown Rash/Hives Uncoded 07/07/20 15:59 Physical Exam Vitals: Vital Signs Temp Pulse Resp BP Pulse Ox 07/20/23 07:18 98 F 49 L 16 113/36 96 07/20/23 06:00 50 L 18 118/50 97 07/20/23 04:00 57 L 18 129/60 97 07/20/23 02:00 47 L 18 134/53 98 07/20/23 00:00 49 L 18 107/80 98 07/19/23 22:00 48 L 18 134/76 98 07/19/23 20:17 42 L 18 117/85 97 07/19/23 17:23 43 L 18 113/45 95 07/19/23 16:16 97.3 F L 46 L 18 129/58 97 Intake and Output 07/19/23 07/20/23 07/20/23 22:59 06:59 14:59 Other: Weight 109.769 kg Results CBC & Chem 7: 07/19/23 17:01 07/20/23 09:55 Labs: Abnormal Lab Results - Last 24 Hours (Table) 07/19/23 07/19/23 07/19/23 Range/Units 17:01 17:01 17:01 RBC 3.26 L (3.80-5.40) m/uL Hgb 11.2 L (11.4-16.0) gm/dL Hct 33.2 L (34.0-46.0) % MCV 101.8 H (80.0-100.0) fL Plt Count 101 L (150-450) k/uL Lymphocytes # 0.9 L (1.0-4.8) k/uL Potassium 5.4 H (3.5-5.1) mmol/L Chloride 110 H (98-107) mmol/L BUN 48 H (7-17) mg/dL Creatinine 1.25 H (0.52-1.04) mg/dL HDL Cholesterol 76.80 H (40.00-60.00) mg/dL
--- NOTE | 2023-07-20 12:33 | CA ---
Transthoracic Echo Report Name: Elayne Raza Age: 82 Gender: F : 1940 Exam Date: 07/20/2023 10:06 Exam Location: [facility] Ht (in): 62 Wt (lb): 242 Ordering Physician: Catalino Singh DO Attending/Referring Phys: Technical Translator Karen Baeza RDCS Procedure CPT: Indications: Thrombus Cardiac Hx: Technical Quality: Technically difficult study Contrast 1: Definity Total Dose (mL): 2 Contrast 2: Total Dose (mL): MEASUREMENTS (Male / Female) Normal Values 2D ECHO LV Diastolic Diameter PLAX 4.6 cm 4.2 - 5.9 / 3.9 - 5.3 cm LV Systolic Diameter PLAX 3.3 cm IVS Diastolic Thickness 1.3 cm 0.6 - 1.0 / 0.6 - 0.9 cm LVPW Diastolic Thickness 1.1 cm 0.6 - 1.0 / 0.6 - 0.9 cm LV Relative Wall Thickness 0.5 RV Internal Dim ED PLAX 3.7 cm LA Systolic Diameter LX 4.7 cm 3.0 - 4.0 / 2.7 - 3.8 cm LV Diastolic Volume MOD BP 49.8 cm??? 67 - 155 / 56 - 104 cm??? LV Systolic Volume MOD BP 18.8 cm??? 22 - 58 / 19 - 49 cm??? LV Ejection Fraction MOD BP 62.2 % >= 55 % LV Cardiac Index MOD BP 742.1 cm???/min???m??? LV Diastolic Volume MOD 4C 46.6 cm??? LV Systolic Volume MOD 4C 23.6 cm??? LV Ejection Fraction MOD 4C 49.5 % LV Cardiac Index MOD 4C 551.7 cm???/min???m??? LV Diastolic Length 4C 6.8 cm LV Systolic Length 4C 5.9 cm LV Diastolic Volume MOD 2C 47.1 cm??? LV Systolic Volume MOD 2C 15.1 cm??? LV Ejection Fraction MOD 2C 68.0 % LV Cardiac Index MOD 2C 766.6 cm???/min???m??? LV Diastolic Length 2C 7.7 cm LV Systolic Length 2C 5.9 cm LA Volume 49.5 cm??? 18 - 58 / 22 - 52 cm??? LA Volume Index 22.0 cm???/m??? 16 - 28 cm???/m??? M-MODE Aortic Root Diameter MM 3.4 cm MV E Point Septal Separation 0.8 cm DOPPLER AV Peak Velocity 123.2 cm/s AV Peak Gradient 6.1 mmHg MV Area PHT 2.1 cm??? Mitral E Point Velocity 49.8 cm/s Mitral A Point Velocity 91.1 cm/s Mitral E to A Ratio 0.5 MV Deceleration Time 357.0 ms LV E' Lateral Velocity 7.3 cm/s Mitral E to LV E' Lateral Ratio 6.9 LV E' Septal Velocity 7.3 cm/s Mitral E to LV E' Septal Ratio 6.9 TR Peak Velocity 274.6 cm/s TR Peak Gradient 30.2 mmHg Right Ventricular Systolic Press 39.0 mmHg FINDINGS Left Ventricle Left ventricular ejection fraction is estimated at 55-60 %. Left ventricular cavity size normal. Normal left ventricular systolic function with no obvious regional wall motion abnormalities. Mildly increased left ventricular wall thickness. Right Ventricle Mild right ventricular dilatation. Mild pulmonary hypertension. Right Atrium Normal right atrial size. Left Atrium Severely increased left atrial diameter. Mitral Valve Structurally normal mitral valve. No mitral stenosis, regurgitation or prolapse. Aortic Valve Trileaflet aortic valve. Thickened aortic valve without stenosis. Tricuspid Valve Structurally normal tricuspid valve. Mild tricuspid regurgitation. Pulmonic Valve Structurally normal pulmonic valve. Mild pulmonic regurgitation. Pericardium No pericardial effusion. Aorta Aortic annulus normal. Mildly dialated descending AO 39 mm CONCLUSIONS 1. Normal left ventricle size and systolic function 2. Mild tricuspid regurgitation with mild pulmonary hypertension Technically difficult study. Definity ECHO contrast used for improved visualization of the endocardial borders (inadequate visualization of two or more contiguous segments). Previewed by: Dr. Moraima Magana MD (Electronically Signed) Final Date: 20 July 2023 12:32
--- NOTE | 2023-07-20 13:13 | P.CNNES ---
History of Present Illness Consult date: 07/20/23 Requesting physician: Catalino Singh Reason for Consult: slurred speech, TIA History of Present Illness: This is an 82-year-old woman who presents the emergency department because of slurred speech and unsteady gait. Patient stated that yesterday she went to her PCP for an ALLERGY shots and that her primary care physician felt like she was wobbly when she was walk-in and her speech was slurred. The episode happened around yesterday at around 1:30 PM-2pm. Her symptoms has resolved. She feels back to baseline now. She stated that she was walk-in the today on her own without any issues at. She denies any history of stroke in the past. She does have underlying history of hypertension, diabetes and hypercholesterolemia and she states that the she has missed her aspirin 81 mg daily since the she was taking care of her who has a lot of medical issues. Some of the workup during his hospital visit consisted of: Lipid panel triglycerides 74, cholesterol is 168, LDL [address] of the head is reported as no acute intracranial ICP abnormality. I personally reviewed the CT and agree with report. CT angiography of the head is reported as patent CT head. No intracranial large vessel occlusion, significant stenosis or sizable aneurysm detected in the limits of CTA. CT angiography of the neck is reported as patent CTA of the neck. No dissection or pseudoaneurysm detected in the carotid or vertebral artery in the neck. Atherosclerotic disease is present with 50% diameter stenosis of the proximal ICA bilaterally. High-grade stenosis proximal right external carotid artery. 2-D echo was reported as normal left ventricular size and systolic function. In the body report is reported left atrium is severely increased left atrial diameter. Per the ED notes it is reported to on evaluation there is questionable mild slurred speech. Patient will be held for neurology evaluation for possible TIA. No IV thrombolytic since her symptoms has resolved and the risk outweighed the benefit. Review of Systems Review of system, is positive and negative as per HPI. Past Medical History Past Medical History: Coronary Artery Disease (CAD), Cancer, Chest Pain / Angina, Heart Failure, COPD, Diabetes Mellitus, Eye Disorder, GERD/Reflux, Hyperlipidemia, Hypertension, Myocardial Infarction ([place]), Osteoarthritis (OA), Pneumonia, Renal Disease, Respiratory Disorder, Skin Disorder, Sleep Apnea/CPAP/BIPAP, Thyroid Disorder, Vascular Disorder Additional Past Medical History / Comment(s): Recent exacerbation of COPD, chronic hypoxic respiratory failure/home oxygen at 2L/NC at [place], PETRA with Cpap use, 2019 covid pneumonia, bronchitis, NIDDM type II, neuropathy occasionally in bilateral feet, bilateral lower leg/pedal edema, L breast cancer with surgery/chemo in 1999, PVD, CKD stage II, UTIs, anemia with iron infusions, migraines, chronic low back pain, past R sided sciatica, past coccyx/L wrist and rib fractures, hypothyroid, diverticular disease, hiatal hernia, bilateral eye glaucoma, seasonal allergies/sinus issues, stress incontinence, rosacea. Last Myocardial Infarction Date:: 2016 History of Any Multi-Drug Resistant Organisms: None Reported Past Surgical History: Breast Surgery, Heart Catheterization, Orthopedic Surgery Additional Past Surgical History / Comment(s): 2017 Cardiac cath/100% LAD blockage, L breast cancer with biopsy/mastectomy with flap and removal of L axillae lymph nodes, pt states surgery bilateral legs where a medication was injected to try to improve circulation/done in [place] by Dr. Ellis, bilateral rotator cuff repairs, EGD, colonoscopy, D&C, bladder sling, benign lesions removed from hands. Past Anesthesia/Blood Transfusion Reactions: Motion Sickness Additional Past Anesthesia/Blood Transfusion Reaction / Comment(s): claustrophobic in MRI machines Smoking Status: Former smoker - Past Family History Father Family Medical History: Asthma, Dementia Additional Family Medical History / Comment(s): "heart problems" Mother Family Medical History: Coronary Artery Disease (CAD), Diabetes Mellitus Additional Family Medical History / Comment(s): triple vessel cabg Brother(s) Family Medical History: Cancer, Coronary Artery Disease (CAD) Additional Family Medical History / Comment(s): a 2nd brother from cancer Medications and Allergies Home Medications Medication Instructions Recorded Confirmed Type Aspirin 81 mg PO DAILY 12/23/15 07/19/23 History Budesonide [Pulmicort] 0.5 mg INHALATION BID PRN 12/23/15 07/20/23 History Multivitamins, Thera [Multivitamin 1 tab PO DAILY 12/23/15 07/19/23 History (formulary)] Albuterol Nebulized [Ventolin 2.5 mg INHALATION QID PRN 06/30/16 07/20/23 History Nebulized] Levothyroxine Sodium [Synthroid] 75 mcg PO DAILY 07/07/20 07/19/23 History Turmeric Root Extract [Turmeric] 500 mg PO DAILY 07/07/20 07/19/23 History Ascorbic Acid [Vitamin C] 1,000 mg PO DAILY 30 Days #60 tab 07/10/20 07/19/23 Rx ALPRAZolam [Xanax] 0.5 mg PO HS 09/08/21 07/19/23 History Elderberry Fruit and Flower [Black 1 cap PO DAILY 09/08/21 07/19/23 History Elderberry 575 mg Cap] Furosemide [Lasix] 20 mg PO DAILY 09/08/21 07/19/23 History Lisinopril-Hctz 10-12.5 mg 1 tab PO DAILY 09/08/21 07/19/23 History [Zestoretic 10-12.5] Oxybutynin ER [Ditropan XL] 10 mg PO DAILY PRN 09/08/21 07/20/23 History Pioglitazone [Actos] 15 mg PO DAILY 09/08/21 07/19/23 History Ubidecarenone [Co Q-10] 100 mg PO DAILY 09/08/21 07/19/23 History Zinc 50 mg PO DAILY 09/08/21 07/19/23 History Alendronate Sodium 70 mg PO FR 07/19/23 07/19/23 History Ergocalciferol (Vitamin D2) 1,250 mcg PO Q14D 07/19/23 07/19/23 History [Drisdol (50,000 Iu)] Gabapentin 300 mg PO DAILY PRN 07/19/23 07/20/23 History [place]-3/Dha/Epa/Fish Oil [[place]-3 1 cap PO DAILY 07/19/23 07/19/23 History Fish Oil 1,000 mg Sfgl] Rosuvastatin [Crestor] 10 mg PO DAILY 07/19/23 07/19/23 History Super B Complex 1 cap PO DAILY 07/19/23 07/19/23 History calcitrioL [Rocaltrol] 0.25 mcg PO MOWE 07/19/23 07/19/23 History Allergies Allergy/AdvReac Type Severity Reaction Status Date / Time brimonidine [From Alphagan P] Allergy Unknown ALLERGY TO Verified 07/19/23 20:05 EYE GTTS- RED & ITCHY EYES. adhesive tape Allergy Rash/Hives Verified 07/19/23 20:05 EKG ELECTRODES AdvReac Unknown Rash/Hives Uncoded 07/07/20 15:59 Physical Examination - Vital Signs Vital Signs: Vital Signs Temp Pulse Resp BP Pulse Ox 07/20/23 12:00 50 L 20 126/43 97 07/20/23 10:00 50 L 19 131/54 99 07/20/23 07:18 98 F 49 L 16 113/36 96 07/20/23 06:00 50 L 18 118/50 97 07/20/23 04:00 57 L 18 129/60 97 07/20/23 02:00 47 L 18 134/53 98 07/20/23 00:00 49 L 18 107/80 98 07/19/23 22:00 48 L 18 134/76 98 07/19/23 20:17 42 L 18 117/85 97 07/19/23 17:23 43 L 18 113/45 95 07/19/23 16:16 97.3 F L 46 L 18 129/58 97 Intake and Output 07/19/23 07/20/23 07/20/23 22:59 06:59 14:59 Other: Weight 109.769 kg GENERAL: The patient is an obese woman, lying in bed and is not in acute distress. NEUROLOGICAL: Higher mental function: The patient is awake, alert, oriented to self, place and time. Patient is following commands. No aphasia and no neglect. Cranial nerves: The pupils are round, equal and reactive to light and accommodation. Visual chaudhry are full to confrontation throughout. Extraocular movement is intact no nystagmus is noted. Facial sensation is normal to touch throughout. The facial strength is normal throughout. Hearing is normal bilaterally to hand rub. Tongue is midline and moved [id number] without any difficulty. No dysarthria is noted. Shoulder shrug is normal bilaterally. Motor: The strength is 5 over 5 throughout. Normal tone and bulk. Cerebellum: Normal finger to nose bilaterally. Sensation: Sensation is normal to touch throughout. Reflexes (right/left): 2+ uppers while lowers are 1+ Plantars are downgoing bilaterally. Results - Laboratory Findings CBC and BMP: 07/19/23 17:01 07/20/23 09:55 Abnormal Lab Findings: Abnormal Labs 07/19/23 07/19/23 07/19/23 17:01 17:01 17:01 RBC 3.26 L Hgb 11.2 L Hct 33.2 L MCV 101.8 H Plt Count 101 L Lymphocytes # 0.9 L Potassium 5.4 H Chloride 110 H Carbon Dioxide BUN 48 H Creatinine 1.25 H Glucose POC Glucose (mg/dL) HDL Cholesterol 76.80 H 07/20/23 07/20/23 09:55 11:56 RBC Hgb Hct MCV Plt Count Lymphocytes # Potassium Chloride 112 H Carbon Dioxide 19 L BUN 45 H Creatinine 1.11 H Glucose 100 H POC Glucose (mg/dL) 135 H HDL Cholesterol Assessment and Plan Assessment: This is an 82-year-old woman who presented emergency department because of dysarthria and unsteady gait. Patient's symptoms has resolved. Likely transient ischemic attack in her symptoms was dysarthria and unsteady gait Chronic lower back pain and had fracture from a fall about 8 years ago. 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 In the hospital she was given aspirin 325 once and was started on aspirin 325 daily but it at ED team. I went down on aspirin to her home dose of 81 and start her on Plavix 75 mg daily. She is on Lipitor 20 mg daily and I went up to 40 mg. I ordered MRI the brain, carotid duplex Neurochecks Cardiac monitoring PT, OT and MARINE OPERATIONS COORDINATOR are consulted We'll defer the rest of medical management to the primary team. For DVT prophylaxis the patient is on subcu heparin 5000 units every 12 hours. The plan was discussed with the patient and the primary team Thank you for the consultation Time with Patient: Greater than 30
[2023-07-20] MEDS: CLOPIDOGREL 75 MG TAB PO SCH (14:10)
[2023-07-20 16:40] LABS: Glucose,Whole Blood 113 mg/dL (70-110)
[2023-07-20 20:30] LABS: Glucose,Whole Blood 128 mg/dL (70-110)
[2023-07-20] MEDS: ALPRAZolam 0.5 MG TAB PO SCH (20:36)
[2023-07-20] MEDS: HEPARIN SODIUM,PORCINE 5,000 UNIT/ML 1 ML VIAL SQ SCH (20:36)
[2023-07-20] MEDS ORDERED: MAGNESIUM HYDROXIDE 2,400 MG/30 ML CUP PO PRN (20:55)
[2023-07-20] MEDS: MAGNESIUM HYDROXIDE 2,400 MG/30 ML CUP PO PRN (22:18)
[2023-07-21 06:31] LABS: Glucose,Whole Blood 99 mg/dL (70-110)
[2023-07-21] MEDS: ASPIRIN 81 MG PO SCH (08:43)
[2023-07-21] MEDS: ATORVASTATIN 40 MG TAB PO SCH (08:43)
[2023-07-21 09:19] VITALS: TEMP 97.6
[2023-07-21] MEDS: LISINOPRIL-HCTZ 10-12.5 MG 1 EACH TAB PO SCH (11:24)
--- NOTE | 2023-07-21 11:28 | MR ---
EXAMINATION TYPE: MR brain wo con DATE OF EXAM: 07/21/2023 COMPARISON: None HISTORY: Stroke, dysarthria and unsteady gait CONTRAST: Performed utilizing 0 mL intravenous Gadavist gadolinium contrast. TECHNIQUE: Multiplanar, multiecho imaging on a 3.0 Isabella magnet is performed through the brain. Stud y is performed within 24 hours of arrival to the hospital. The craniovertebral junction is normal. The pituitary is normal. Portion of the optic chiasm visual ized is normal Diffusion-weighted imaging is performed. No abnormal hyperintensity is present to suggest an acute i ntracranial infarct or acute ischemic change. There are mild scattered punctate areas of hyperintensity on T2 and Inversion Recovery weighted seque nces which are non-specific but can be related to microvascular ischemic changes. Ventricles and sulci are appropriate for the patient age. IMPRESSION: 1. Mild scattered periventricular and deep white matter chronic appearing changes. 2 No acute intracranial process
[2023-07-21 11:29] LABS: Glucose,Whole Blood 92 mg/dL (70-110)
[2023-07-21 11:48] VITALS: BP 141/78; PULSE 57; RESP 15
--- NOTE | 2023-07-21 11:55 | P.PN ---
Subjective Progress Note Date: 07/21/23 * 82-year-old patient with past medical history significant for coronary artery disease history of chronic total occlusion of right coronary artery, history of dyslipidemia, history of breast cancer chronic kidney disease, hypertension, history of heart failure, diabetes mellitus, COPD, dyslipidemia presents to the emergency department for feeling dizzy, sent in by primary care provider for lightheadedness. Patient went to primary care office with concern for off-balance patient said this has been going on for at least 48 hours prior to presentation. Initial symptoms included dizziness, slurred spe ech and disequilibrium. * Workup initiated in ER included CT head which was negative for acute intrac ranial process * CT angio head and neck was negative for dissection high-grade stenosis of proximal right external carotid artery noted no intracranial large vessel occlusion or stenosis noted * Blood work obtained included CBC showed WBC of 4.1 hemoglobin 11.2 platelet 101 * INR of 1, serum chemistry showed sodium 137 potassium 5.1 BUN 48 creatinine 1.25 * Patient was given IV fluids and consultation obtained from neurology echocardiogram ordered * Patient was not considered a candidate for tPA secondary to nonspecific symptoms * 07/21/23: Patient seen and evaluated bedside, echocardiogram completed, preserved ejection fraction. MRI brain ordered, appreciate input from neurology. Patient started back on home regimen lisinopril hydrochlorothiazide, MRI brain reviewed negative patient does complain of weakness, disequilibrium has resolved PHYSICAL EXAMINATION: GENERAL: The patient is alert and oriented x3, not in any acute distress. Well developed, well nourished. HEENT: Pupils are round and equally reacting to light. EOMI. No scleral icterus. CARDIOVASCULAR: S1 and S2 present. No murmurs, rubs, or gallops. PULMONARY: Chest is clear to auscultation, no wheezing or crackles. ABDOMEN: Soft, nontender, nondistended, normoactive bowel sounds. No palpable organomegaly. MUSCULOSKELETAL: No joint swelling or deformity. EXTREMITIES: No cyanosis, clubbing, or pedal edema. NEUROLOGICAL: Gross neurological examination did not reveal any focal deficits. SKIN: No rashes. Assessment and plan * Acute onset dizziness/disequilibrium rule out CVA versus TIA * History of sleep apnea, COPD * Chronic hypoxemic respiratory failure * Diabetes mellitus type 2 * History of coronary artery disease * Chronic kidney disease stage IIIb with acute hyperkalemia * In regards to acute neurological symptoms rule out TIA vs CVA , CT head CT angio head and neck completed. Continue aspirin, Lipitor, MRI brain negative for CVA * In regards to history of COPD continue bronchodilator protocol not in exacerbation * In regards to chronic kidney disease, lisinopril/hydrochlorothiazide, was initially held for permissive hypertension, resumed on 07/20 * In regards to diabetes mellitus Accu-Cheks ACHS, continue correctional insulin, continue Actos * In regards to history of hypertension, lisinopril/hydrochlorothiazide resumed * Will need physical therapy Occupational Therapy evaluation prior to discharge * Status is full code Objective - Vital Signs Vital signs: Vital Signs Temp 97.6 F 07/21/23 08:00 Pulse 65 07/21/23 08:00 Resp 16 07/21/23 08:00 BP 157/69 07/21/23 08:00 Pulse Ox 94 L 07/21/23 08:00 FiO2 Intake & Output 07/20/23 07/21/23 07/21/23 18:59 06:59 18:59 Intake Total 180 1350 110 Balance 180 1350 110 Weight 109.769 kg 109.4 kg Intake: IV 20 Invasive Line 1 20 Intake, IV Titration 550 Amount Sodium Chloride 0.9% 1, 400 000 ml @ 100 mls/hr IV . Q10H ART Rx#:[id number] Sodium Chloride 0.9% 1, 150 000 ml @ 75 mls/hr IV . [id number] STA Rx#:[id number] Oral 180 780 110 Other: Voiding Method Toilet Toilet # Voids 1 # Bowel Movements 1 - Labs CBC & Chem 7: 07/19/23 17:01 07/20/23 09:55 Labs: Abnormal Lab Results - Last 24 Hours (Table) 07/20/23 07/20/23 07/20/23 Range/Units 09:55 11:56 16:34 Chloride 112 H (98-107) mmol/L Carbon Dioxide 19 L (22-30) mmol/L BUN 45 H (7-17) mg/dL Creatinine 1.11 H (0.52-1.04) mg/dL Glucose 100 H (74-99) mg/dL POC Glucose (mg/dL) 135 H 113 H (70-110) mg/dL 07/20/23 Range/Units 20:18 Chloride (98-107) mmol/L Carbon Dioxide (22-30) mmol/L BUN (7-17) mg/dL Creatinine (0.52-1.04) mg/dL Glucose (74-99) mg/dL POC Glucose (mg/dL) 128 H (70-110) mg/dL
[2023-07-21 13:37] LABS: HCT 34.5 % (34.0-46.0); HGB 10.8 gm/dL (11.4-16.0); MCH 32.7 pg (25.0-35.0); MCHC 31.4 g/dL (31.0-37.0); MCV 104.2 fL (80.0-100.0); Macrocytosis Slight; Mean Platelet Volume 9.7; Platelet Count 111 k/uL (150-450); RBC 3.31 m/uL (3.80-5.40); RDW 13.8 % (11.5-15.5); WBC 4.8 k/uL (3.8-10.6)
--- NOTE | 2023-07-21 14:11 | P.DS ---
Providers Date of admission: 07/20/23 14:55 Expected date of discharge: 07/21/23 Attending physician: Jl Gary Consults: 07/19/23 19:37 Consult Physician Routine Consulting Provider: Jose Mak Consult Reason/Comments: Slurred speech, evaluate for TIA Do you want consulting provider notified?: Yes Primary care physician: Rosalba [place] Hospital Course: * 82-year-old patient with past medical history significant for coronary artery disease history of chronic total occlusion of right coronary artery, history of dyslipidemia, history of breast cancer chronic kidney disease, hypertension, history of heart failure, diabetes mellitus, COPD, dyslipidemia presents to the emergency department for feeling dizzy, sent in by primary care provider for lightheadedness. Patient went to primary care office with concern for off-balance patient said this has been going on for at least 48 hours prior to presentation. Initial symptoms included dizziness, slurred speech and disequilibrium. * Workup initiated in ER included CT head which was negative for acute intracranial process * CT angio head and neck was negative for dissection high-grade stenosis of proximal right external carotid artery noted no intracranial large vessel occlusion or stenosis noted * Blood work obtained included CBC showed WBC of 4.1 hemoglobin 11.2 platelet 101 * INR of 1, serum chemistry showed sodium 137 potassium 5.1 BUN 48 creatinine 1.25 * Patient was given IV fluids and consultation obtained from neurology echocardiogram ordered * Patient was not considered a candidate for tPA secondary to nonspecific symptoms * 07/21/23: Patient seen and evaluated bedside, echocardiogram completed, preserved ejection fraction. MRI brain ordered, appreciate input from neurology. Patient started back on home regimen lisinopril hydrochlorothiazide, MRI brain reviewed negative patient does complain of weakness, disequilibrium has resolved. Patient cleared for discharge by neurology MRI negative patient likely had a TIA. Patient ambulating with nursing staff without any difficulty PHYSICAL EXAMINATION: GENERAL: The patient is alert and oriented x3, not in any acute distress. Well developed, well nourished. HEENT: Pupils are round and equally reacting to light. EOMI. No scleral icterus. CARDIOVASCULAR: S1 and S2 present. No murmurs, rubs, or gallops. PULMONARY: Chest is clear to auscultation, no wheezing or crackles. ABDOMEN: Soft, nontender, nondistended, normoactive bowel sounds. No palpable organomegaly. MUSCULOSKELETAL: No joint swelling or deformity. EXTREMITIES: No cyanosis, clubbing, or pedal edema. NEUROLOGICAL: Gross neurological examination did not reveal any focal deficits. SKIN: No rashes. Assessment and plan * Acute onset dizziness/disequilibrium secondary to TIA * History of sleep apnea, COPD * Chronic hypoxemic respiratory failure * Diabetes mellitus type 2 * History of coronary artery disease * Chronic kidney disease stage IIIb with acute hyperkalemia * In regards to acute neurological symptoms, CVA ruled out>> CT head CT angio head and neck completed. * Continue aspirin, Lipitor, Plavix for 21 days then aspirin monotherapy * MRI brain negative for CVA * In regards to history of COPD continue bronchodilator protocol not in exacerbation * In regards to chronic kidney disease, lisinopril/hydrochlorothiazide, was initially held for permissive hypertension, resumed on 07/20 * In regards to diabetes mellitus Accu-Cheks ACHS, continue Actos, follow-up with PCP * In regards to history of hypertension, lisinopril/hydrochlorothiazide resumed * Ambulated in room patient remained stable discharged home Patient Condition at Discharge: Fair Plan - Discharge Summary Discharge Rx Participant: No New Discharge Prescriptions: New Clopidogrel [Plavix] 75 mg PO DAILY 21 Days #21 tab Continue Multivitamins, Thera [Multivitamin (formulary)] 1 tab PO DAILY Aspirin 81 mg PO DAILY Budesonide [Pulmicort] 0.5 mg INHALATION BID PRN PRN Reason: Shortness Of Breath Albuterol Nebulized [Ventolin Nebulized] 2.5 mg INHALATION QID PRN PRN Reason: Shortness Of Breath Turmeric Root Extract [Turmeric] 500 mg PO DAILY Levothyroxine Sodium [Synthroid] 75 mcg PO DAILY Ascorbic Acid [Vitamin C] 1,000 mg PO DAILY 30 Days #60 tab Furosemide [Lasix] 20 mg PO DAILY Lisinopril-Hctz 10-12.5 mg [Zestoretic 10-12.5] 1 tab PO DAILY Zinc 50 mg PO DAILY Rosuvastatin [Crestor] 10 mg PO DAILY Ergocalciferol (Vitamin D2) [Drisdol (50,000 Iu)] 1,250 mcg PO Q14D calcitrioL [Rocaltrol] 0.25 mcg PO MOWE Alendronate Sodium 70 mg PO FR Gabapentin 300 mg PO DAILY PRN PRN Reason: Pain ALPRAZolam [Xanax] 0.5 mg PO HS Elderberry Fruit and Flower [Black Elderberry 575 mg Cap] 1 cap PO DAILY Oxybutynin ER [Ditropan XL] 10 mg PO DAILY PRN PRN Reason: incontinence Pioglitazone [Actos] 15 mg PO DAILY Ubidecarenone [Co Q-10] 100 mg PO DAILY Super B Complex 1 cap PO DAILY [place]-3/Dha/Epa/Fish Oil [[place]-3 Fish Oil 1,000 mg Sfgl] 1 cap PO DAILY Discharge Medication List Aspirin 81 mg PO DAILY 12/23/15 [History] Budesonide [Pulmicort] 0.5 mg INHALATION BID PRN 12/23/15 [History] Multivitamins, Thera [Multivitamin (formulary)] 1 tab PO DAILY 12/23/15 [History] Albuterol Nebulized [Ventolin Nebulized] 2.5 mg INHALATION QID PRN 06/30/16 [History] Levothyroxine Sodium [Synthroid] 75 mcg PO DAILY 07/07/20 [History] Turmeric Root Extract [Turmeric] 500 mg PO DAILY 07/07/20 [History] Ascorbic Acid [Vitamin C] 1,000 mg PO DAILY 30 Days #60 tab 07/10/20 [Rx] ALPRAZolam [Xanax] 0.5 mg PO HS 09/08/21 [History] Elderberry Fruit and Flower [Black Elderberry 575 mg Cap] 1 cap PO DAILY 09/08/21 [History] Furosemide [Lasix] 20 mg PO DAILY 09/08/21 [History] Lisinopril-Hctz 10-12.5 mg [Zestoretic 10-12.5] 1 tab PO DAILY 09/08/21 [History] Oxybutynin ER [Ditropan XL] 10 mg PO DAILY PRN 09/08/21 [History] Pioglitazone [Actos] 15 mg PO DAILY 09/08/21 [History] Ubidecarenone [Co Q-10] 100 mg PO DAILY 09/08/21 [History] Zinc 50 mg PO DAILY 09/08/21 [History] Alendronate Sodium 70 mg PO FR 07/19/23 [History] Ergocalciferol (Vitamin D2) [Drisdol (50,000 Iu)] 1,250 mcg PO Q14D 07/19/23 [History] Gabapentin 300 mg PO DAILY PRN 07/19/23 [History] [place]-3/Dha/Epa/Fish Oil [[place]-3 Fish Oil 1,000 mg Sfgl] 1 cap PO DAILY 07/19/23 [History] Rosuvastatin [Crestor] 10 mg PO DAILY 07/19/23 [History] Super B Complex 1 cap PO DAILY 07/19/23 [History] calcitrioL [Rocaltrol] 0.25 mcg PO MOWE 07/19/23 [History] Clopidogrel [Plavix] 75 mg PO DAILY 21 Days #21 tab 07/21/23 [Rx] Follow up Appointment(s)/Referral(s): Jose Sierra MD [STAFF PHYSICIAN] - 1 Week Rosalba Medrano MD [Primary Care Provider] - 1-2 days Discharge Disposition: HOME SELF-CARE
[2023-07-21 14:15] LABS: African American GFR (CKD) 48 (>60 ml/min/1.73 sqM); Anion Gap 7 mmol/L; Blood Urea Nitrogen 39 mg/dL (7-17); C Reactive Protein <0.5 mg/dL (<1.0); Carbon Dioxide 22 mmol/L (22-30); Chloride 109 mmol/L (98-107); Glucose 127 mg/dL (74-99); Non-African American GFR(CKD) 42 (>60 ml/min/1.73 sqM); Sodium 138 mmol/L (137-145)
--- NOTE | 2023-07-21 16:24 | P.PN ---
Subjective Progress Note Date: 07/21/23 I am following-up with patient and she continues to feel back to baseline. No new neurological issues. Objective - Vital Signs Vital signs: Vital Signs Temp 97.6 F 07/21/23 08:00 Pulse 57 L 07/21/23 11:25 Resp 15 07/21/23 11:25 BP 141/78 07/21/23 11:25 Pulse Ox 95 07/21/23 11:25 FiO2 Intake & Output 07/20/23 07/21/23 07/21/23 18:59 06:59 18:59 Intake Total 180 1350 350 Balance 180 1350 350 Weight 109.769 kg 109.4 kg Intake: IV 20 Invasive Line 1 20 Intake, IV Titration 550 Amount Sodium Chloride 0.9% 1, 400 000 ml @ 100 mls/hr IV . Q10H ART Rx#:[id number] Sodium Chloride 0.9% 1, 150 000 ml @ 75 mls/hr IV . [id number] STA Rx#:[id number] Oral 180 780 350 Other: Voiding Method Toilet Toilet # Voids 1 # Bowel Movements 1 - Exam GENERAL: The patient is an obese woman, lying in bed and is not in acute distress. NEUROLOGICAL: Higher mental function: The patient is awake, alert, oriented to self, place and time. Patient is following commands. No aphasia and no neglect. Cranial nerves: The pupils are round, equal and reactive to light and acco mmodation. Visual chaudhry are full to confrontation throughout. Extraocular movement is intact no nystagmus is noted. Facial sensation is normal to touch throughout. The facial strength is normal throughout. Hearing is normal bilaterally to hand rub. Tongue is midline and moved [id number] without any difficulty. No dysarthria is noted. Shoulder shrug is normal bilaterally. Motor: The strength is 5 over 5 throughout. Normal tone and bulk. Cerebellum: Normal finger to nose bilaterally. Sensation: Sensation is normal to touch throughout. Reflexes (right/left): 2+ uppers while lowers are 1+ Plantars are downgoing bilaterally. Some of the workup during his hospital visit consisted of: Lipid panel triglycerides 74, cholesterol is 168, LDL [address] of the head is reported as no acute intracranial ICP abnormality. I personally reviewed the CT and agree with report. CT angiography of the head is reported as patent CT head. No intracranial large vessel occlusion, significant stenosis or sizable aneurysm detected in the limits of CTA. CT angiography of the neck is reported as patent CTA of the neck. No dissection or pseudoaneurysm detected in the carotid or vertebral artery in the neck. Atherosclerotic disease is present with 50% diameter stenosis of the proximal ICA bilaterally. High-grade stenosis proximal right external carotid artery. 2-D echo was reported as normal left ventricular size and systolic function. In the body report is reported left atrium is severely increased left atrial diameter. MRI Brain: Is reported as mild scattered periventricular and deep white matter chronic appearing changes. No acute intracranial process. - Labs CBC & Chem 7: 07/21/23 13:04 07/21/23 13:04 Labs: Abnormal Lab Results - Last 24 Hours (Table) 07/20/23 07/20/23 07/21/23 Range/Units 16:34 20:18 13:04 RBC 3.31 L (3.80-5.40) m/uL Hgb 10.8 L (11.4-16.0) gm/dL MCV 104.2 H (80.0-100.0) fL Plt Count 111 L (150-450) k/uL Chloride (98-107) mmol/L BUN (7-17) mg/dL Creatinine (0.52-1.04) mg/dL Glucose (74-99) mg/dL POC Glucose (mg/dL) 113 H 128 H (70-110) mg/dL 07/21/23 Range/Units 13:04 RBC (3.80-5.40) m/uL Hgb (11.4-16.0) gm/dL MCV (80.0-100.0) fL Plt Count (150-450) k/uL Chloride 109 H (98-107) mmol/L BUN 39 H (7-17) mg/dL Creatinine 1.22 H (0.52-1.04) mg/dL Glucose 127 H (74-99) mg/dL POC Glucose (mg/dL) (70-110) mg/dL Assessment and Plan Assessment: This is an 82-year-old woman who presented emergency department because of dysarthria and unsteady gait. Patient's symptoms has resolved. Likely transient ischemic attack in her symptoms was dysarthria and unsteady gait. MRI Brain is negative for acute/subacute cva. Chronic lower back pain and had fracture from a fall about 8 years ago. 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 In the hospital she was given aspirin 325 once and was started on aspirin 325 daily but it at ED team. I went down on aspirin to her home dose of 81mg and start her on Plavix 75 mg daily. Recommend dual antiplatelets for 21 days and after 21 days stop Plavix but continue aspirin indefinitely. She is on Lipitor 20 mg daily and I went up to 40 mg. For the proximal right external carotid artery high-grade stenosis recommend the patient to follow-up with intervention neurologist or vascular surgery team as an outpatient. Neuro checks Cardiac monitoring PT, OT and [employer] are consulted We'll defer the rest of medical management to the primary team. For DVT prophylaxis the patient is on subcu heparin 5000 units every 12 hours. The plan was discussed with the patient and the primary team There is no further neurological work-up. Will sign off. Please reconsult if needed. Time with Patient: Less than 30
[2023-07-22] MEDS ORDERED: NON FORMULARY DRUG (Alendronate Sodium [Alendronate Sodium] 70 MG Tablet) PO SCH (05:54)
[2023-07-29] MEDS ORDERED: ERGOCALCIFEROL 1,250 MCG (50,000 IU) CAPSULE PO SCH (09:00)
== END 2023-07-21 15:15 | disposition home or self-care (01) | DRG 69 ==
LOC: EC 16:16 → 3SCARD 19:38 → OBSVTOIN 07-20 14:55
PROVIDERS: ADMIT Hospitalist; ATTEND Hospitalist
DX: G45.9 Transient cerebral ischemic attack, unspecified (principal); E87.1 Hypo-osmolality and hyponatremia; I13.0 Hypertensive heart and chronic kidney disease with heart failure and stage 1 through stage 4 chronic kidney disease, or unspecified chronic kidney disease; J96.11 Chronic respiratory failure with hypoxia; R53.1 Weakness; I25.10 Atherosclerotic heart disease of native coronary artery without angina pectoris; G47.33 Obstructive sleep apnea (adult) (pediatric); N18.30 Chronic kidney disease, stage 3 unspecified; G89.29 Other chronic pain; K21.9 Gastro-esophageal reflux disease without esophagitis; Z87.01 Personal history of pneumonia (recurrent); E03.9 Hypothyroidism, unspecified; J30.2 Other seasonal allergic rhinitis; K57.90 Diverticulosis of intestine, part unspecified, without perforation or abscess without bleeding; E11.51 Type 2 diabetes mellitus with diabetic peripheral angiopathy without gangrene; E66.01 Morbid (severe) obesity due to excess calories; I12.9 Hypertensive chronic kidney disease with stage 1 through stage 4 chronic kidney disease, or unspecified chronic kidney disease; N18.32 Chronic kidney disease, stage 3b; E11.22 Type 2 diabetes mellitus with diabetic chronic kidney disease; E78.00 Pure hypercholesterolemia, unspecified; E87.5 Hyperkalemia; E87.8 Other disorders of electrolyte and fluid balance, not elsewhere classified; I25.2 Old myocardial infarction; I50.9 Heart failure, unspecified; I65.21 Occlusion and stenosis of right carotid artery; Z79.82 Long term (current) use of aspirin; Z79.890 Hormone replacement therapy; Z79.899 Other long term (current) drug therapy; Z82.49 Family history of ischemic heart disease and other diseases of the circulatory system; Z86.73 Personal history of transient ischemic attack (TIA), and cerebral infarction without residual deficits; Z85.3 Personal history of malignant neoplasm of breast; Z86.16 Personal history of COVID-19; Z92.21 Personal history of antineoplastic chemotherapy; E11.42 Type 2 diabetes mellitus with diabetic polyneuropathy; I07.1 Rheumatic tricuspid insufficiency; R00.1 Bradycardia, unspecified; I27.20 Pulmonary hypertension, unspecified; Z87.440 Personal history of urinary (tract) infections; G43.909 Migraine, unspecified, not intractable, without status migrainosus; Z79.84 Long term (current) use of oral hypoglycemic drugs; Z87.19 Personal history of other diseases of the digestive system; F40.240 Claustrophobia
CPT/HCPCS: 36415; 70450; 70496; 70498; 70551; 71046; 80048; 80053; 80061; 82550; 85025; 85027; 85610; 85730; 86140; 93005; 93306; 96360; 96361; 99285

== ENCOUNTER 2023-11-01 23:50 | Emergency (ER) | payer MEDICARE, BC ==
[2023-11-01 23:59] VITALS: PULSE 54; RESP 18; TEMP 97.5
[2023-11-02] MEDS: ACETAMINOPHEN TAB 500 MG TAB PO STA (03:18)
--- NOTE | 2023-11-02 03:23 | ED ---
Fall HPI - General Chief Complaint: Fall Stated Complaint: Fall, Right Rib Pain Time Seen by Provider: 11/02/23 00:05 Source: patient Mode of arrival: EMS - History of Present Illness Initial Comments: 83-year-old female presents emergency department after she sustained a fall at home. Patient fell onto her right side. She is complaining of right-sided chest wall pain.. Denies shortness of breath. She has not taken any pain medications at home. When she fell she flagged EMS who brought her into the emergency department for evaluation. She denies any hip or back pain. Patient did not hit her head. She does not take blood thinners. No other alleviating, precipitating or modifying factors - Related Data Home Medications Medication Instructions Recorded Confirmed Aspirin 81 mg PO DAILY 12/23/15 07/19/23 Budesonide [Pulmicort] 0.5 mg INHALATION BID PRN 12/23/15 07/20/23 Multivitamins, Thera [Multivitamin 1 tab PO DAILY 12/23/15 07/19/23 (formulary)] Albuterol Nebulized [Ventolin 2.5 mg INHALATION QID PRN 06/30/16 07/20/23 Nebulized] Levothyroxine Sodium [Synthroid] 75 mcg PO DAILY 07/07/20 07/19/23 Turmeric Root Extract [Turmeric] 500 mg PO DAILY 07/07/20 07/19/23 ALPRAZolam [Xanax] 0.5 mg PO HS 09/08/21 07/19/23 Elderberry Fruit and Flower [Black 1 cap PO DAILY 09/08/21 07/19/23 Elderberry 575 mg Cap] Furosemide [Lasix] 20 mg PO DAILY 09/08/21 07/19/23 Lisinopril-Hctz 10-12.5 mg 1 tab PO DAILY 09/08/21 07/19/23 [Zestoretic 10-12.5] Oxybutynin ER [Ditropan XL] 10 mg PO DAILY PRN 09/08/21 07/20/23 Pioglitazone [Actos] 15 mg PO DAILY 09/08/21 07/19/23 Ubidecarenone [Co Q-10] 100 mg PO DAILY 09/08/21 07/19/23 Zinc 50 mg PO DAILY 09/08/21 07/19/23 Alendronate Sodium 70 mg PO FR 07/19/23 07/19/23 Ergocalciferol (Vitamin D2) 1,250 mcg PO Q14D 07/19/23 07/19/23 [Drisdol (50,000 Iu)] Gabapentin 300 mg PO DAILY PRN 07/19/23 07/20/23 [place]-3/Dha/Epa/Fish Oil [[place]-3 1 cap PO DAILY 07/19/23 07/19/23 Fish Oil 1,000 mg Sfgl] Rosuvastatin [Crestor] 10 mg PO DAILY 07/19/23 07/19/23 Super B Complex 1 cap PO DAILY 07/19/23 07/19/23 calcitrioL [Rocaltrol] 0.25 mcg PO MOWE 07/19/23 07/19/23 Previous Rx's Medication Instructions Recorded Ascorbic Acid [Vitamin C] 1,000 mg PO DAILY 30 Days #60 tab 07/10/20 Clopidogrel [Plavix] 75 mg PO DAILY 21 Days #21 tab 07/21/23 Lidocaine 5% Patch [Lidoderm] 1 patch TOPICAL DAILY #25 patch 11/02/23 traMADol HCl [Ultram] 50 mg PO Q6H PRN #20 tab 11/02/23 Allergies Allergy/AdvReac Type Severity Reaction Status Date / Time brimonidine [From Alphagan P] Allergy Unknown ALLERGY TO Verified 11/01/23 23:59 EYE GTTS- RED & ITCHY EYES. adhesive tape Allergy Rash/Hives Verified 11/01/23 23:59 EKG ELECTRODES AdvReac Unknown Rash/Hives Uncoded 11/01/23 23:59 Review of Systems ROS Statement: Those systems with pertinent positive or pertinent negative responses have been documented in the HPI. ROS Other: All systems not noted in ROS Statement are negative. Past Medical History Past Medical History: Coronary Artery Disease (CAD), Cancer, Chest Pain / Angina, Heart Failure, COPD, Diabetes Mellitus, Eye Disorder, GERD/Reflux, Hyperlipidemia, Hypertension, Myocardial Infarction (PA), Osteoarthritis (OA), Pneumonia, Renal Disease, Respiratory Disorder, Skin Disorder, Sleep Apnea/CPAP/BIPAP, Thyroid Disorder, Vascular Disorder Additional Past Medical History / Comment(s): Recent exacerbation of COPD, chronic hypoxic respiratory failure/home oxygen at 2L/NC at HS, PETRA with Cpap use, 2019 covid pneumonia, bronchitis, NIDDM type II, neuropathy occasionally in bilateral feet, bilateral lower leg/pedal edema, L breast cancer with surgery/chemo in 1999, PVD, CKD stage II, UTIs, anemia with iron infusions, migraines, chronic low back pain, past R sided sciatica, past coccyx/L wrist and rib fractures, hypothyroid, diverticular disease, hiatal hernia, bilateral eye glaucoma, seasonal allergies/sinus issues, stress incontinence, rosacea. Last Myocardial Infarction Date:: 2016 History of Any Multi-Drug Resistant Organisms: None Reported Past Surgical History: Breast Surgery, Heart Catheterization, Orthopedic Surgery Additional Past Surgical History / Comment(s): 2017 Cardiac cath/100% LAD blockage, L breast cancer with biopsy/mastectomy with flap and removal of L axillae lymph nodes, pt states surgery bilateral legs where a medication was injected to try to improve circulation/done in [place] by Dr. Ellis, bilateral rotator cuff repairs, EGD, colonoscopy, D&C, bladder sling, benign lesions removed from hands. Past Anesthesia/Blood Transfusion Reactions: Motion Sickness Additional Past Anesthesia/Blood Transfusion Reaction / Comment(s): claustrophobic in MRI machines Past Psychological History: No Psychological Hx Reported Smoking Status: Former smoker Past Alcohol Use History: None Reported Past Drug Use History: None Reported - Past Family History Father Family Medical History: Asthma, Dementia Additional Family Medical History / Comment(s): "heart problems" Mother Family Medical History: Coronary Artery Disease (CAD), Diabetes Mellitus Additional Family Medical History / Comment(s): triple vessel cabg Brother(s) Family Medical History: Cancer, Coronary Artery Disease (CAD) Additional Family Medical History / Comment(s): a 2nd brother from cancer General Exam Limitations: no limitations General appearance: alert, in no apparent distress Head exam: Present: atraumatic, normocephalic, normal inspection Eye exam: Present: normal appearance, PERRL, EOMI. Absent: scleral icterus, conjunctival injection, periorbital swelling ENT exam: Present: normal exam, mucous membranes moist Neck exam: Present: normal inspection. Absent: tenderness, meningismus, lymphadenopathy Respiratory exam: Present: normal lung sounds bilaterally, chest wall tenderness (Tenderness to palpation of the lateral/posterior chest wall). Absent: respiratory distress, wheezes, rales, rhonchi, stridor Cardiovascular Exam: Present: regular rate, normal rhythm, normal heart sounds. Absent: systolic murmur, diastolic murmur, rubs, gallop, clicks GI/Abdominal exam: Present: soft, normal bowel sounds. Absent: distended, tenderness, guarding, rebound, rigid Extremities exam: Present: normal inspection, full ROM, normal capillary refill. Absent: tenderness, pedal edema, joint swelling, calf tenderness Back exam: Present: normal inspection Neurological exam: Present: alert, oriented X3, CN II-XII intact Psychiatric exam: Present: normal affect, normal mood Skin exam: Present: warm, dry, intact, normal color. Absent: rash Course Vital Signs 11/01/23 11/02/23 23:54 05:25 Temperature 97.5 F L Pulse Rate 54 L 54 L Respiratory 18 18 Rate Blood Pressure 153/68 161/67 O2 Sat by Pulse 98 97 Oximetry Medical Decision Making - Medical Decision Making Was pt. sent in by a medical professional or institution (, PA, INVE[employer], urgent care, hospital, or senior living...) When possible be specific @ -No Did you speak to anyone other than the patient for history (EMS, parent, family, police, friend...)? What history was obtained from this source @ -Spoke with EMS for history Did you review nursing and triage notes (agree or disagree)? Why? @ -I reviewed and agree with nursing and triage notes Were old charts reviewed (outside hosp., previous admission, EMS record, old EKG, old radiological studies, urgent care reports/EKG's, senior living records)? Report findings @ -No old charts were reviewed Differential Diagnosis (chest pain, altered mental status, abdominal pain women, abdominal pain men, vaginal bleeding, weakness, fever, dyspnea, syncope, headache, dizziness, GI bleed, back pain, seizure, CVA, palpatations, mental health, musculoskeletal)? @ -Differential Chest Pain: Stable Angina, Unstable Angina, STEMI, NSTEMI Aortic Dissection, Pneumothorax, Musculoskeletal, Esophageal Spasm GERD, Cholecystitis, Pancreatitis, Zoster, this is not meant to be an all-inclusive list. EKG interpreted by me (3pts min.). @ -Not done X-rays interpreted by me (1pt min.). @ -None done CT interpreted by me (1pt min.). @ -Yes and I do identify a rib fracture. This is later missed by radiologist U/S interpreted by me (1pt. min.). @ -None done What testing was considered but not performed or refused? (CT, X-rays, U/S, labs)? Why? @ -None What meds were considered but not given or refused? Why? @ -None Did you discuss the management of the patient with other professionals (professionals i.e. Dr., PA, IN[employer], lab, RT, psych nurse, social services aide, code number stamper, teacher, program officer, child welfare caseworker)? Give summary @ -No Was smoking cessation discussed for >3mins.? @ -No Was critical care preformed (if so, how long)? @ -No Were there social determinants of health that impacted care today? How? (Homelessness, low income, unemployed, alcoholism, drug addiction, transportation, low edu. Level, literacy, decrease access to med. care, detention, rehab)? @ -No Was there de-escalation of care discussed even if they declined (Discuss DNR or withdrawal of care, Hospice)? DNR status @ -No What co-morbidities impacted this encounter? (DM, HTN, Smoking, COPD, CAD, Cancer, CVA, ARF, Chemo, Hep., AIDS, mental health diagnosis, sleep apnea, morbid obesity)? @ -None Was patient admitted / discharged? Hospital course, mention meds given and route, prescriptions, significant lab abnormalities, going to OR and other pertinent info. @ -Upon arrival patient seen and evaluated in room 27. Thorough history and physical exam was performed. Patient is sent for CT of the chest as there is high concern for rib fracture. I do identify a 12 rib fracture. I did administer Lidoderm patch. Results are discussed with the patient. She has improvement in her pain at this time and feels comfortable enough going home. She is instructed to follow-up with her primary care doctor and return for any new or worsening symptoms Undiagnosed new problem with uncertain prognosis? @ -No Drug Therapy requiring intensive monitoring for toxicity (Heparin, Nitro, Insulin, Cardizem)? @ -No Were any procedures done? @ -No Diagnosis/symptom? @ -Acute fall, acute 12th rib fracture Acute, or Chronic, or Acute on Chronic? @ -Acute Uncomplicated (without systemic symptoms) or Complicated (systemic symptoms)? @ -Complicated Side effects of treatment? @ -No Exacerbation, Progression, or Severe Exacerbation? @ -No Poses a threat to life or bodily function? How? (Chest pain, USA, PA, pneumonia, PE, COPD, DKA, ARF, appy, cholecystitis, CVA, Diverticulitis, Homicidal, Suicidal, threat to staff... and all critical care pts) @ -No Disposition Clinical Impression: Fall, Right rib fracture Disposition: HOME SELF-CARE Condition: Stable Instructions (If sedation given, give patient instructions): Rib Fracture (ED) Additional Instructions: Please wear one of the Lidoderm patches daily. Take the tramadol as needed for pain control. Follow-up with your primary care doctor in 2-4 days. Return to the emergency department for any new or worsening symptoms Prescriptions: Lidocaine 5% Patch [Lidoderm] 1 patch TOPICAL DAILY #25 patch traMADol HCl [Ultram] 50 mg PO Q6H PRN #20 tab PRN Reason: Pain Is patient prescribed a controlled substance at d/c from ED?: Yes When asked, does pt state using other controlled substances?: No If prescribed controlled substance>3 days was MAPS reviewed?: Yes If opioid is for acute pain is fill amount 7 days or less?: Yes Referrals: Rosalba Medrano MD [Primary Care Provider] - 1-2 days Time of Disposition: 04:58
[2023-11-02] MEDS: LIDOCAINE 4% PATCH TOPICAL ONE (03:29)
--- NOTE | 2023-11-02 04:34 | CT ---
ADDENDUM - Added by Sundeep Gr MD on 11/02/2023 4:41 AM (-04:00) Nondisplaced RIGHT posterior 12th rib fracture. EXAM: CT Chest Without Intravenous Contrast CLINICAL HISTORY: ITS.REASON CT Reason: fall, right sided chest/flank pain TECHNIQUE: Axial computed tomography images of the chest without intravenous contrast. CTDI is 13.7 mGy and DLP is 601 mGy-cm. This CT exam was performed using one or more of the following dose reduction techniques: automated exposure control, adjustment of the mA and/or kV according to patient size, and/or use of iterative reconstruction technique. COMPARISON: No relevant prior studies available. FINDINGS: Lungs: Unremarkable. No mass. No consolidation. Pleural space: Unremarkable. No pneumothorax. No significant effusion. Heart: Unremarkable. No cardiomegaly. No significant pericardial effusion. No significant coronary artery calcifications. Bones/joints: Degenerative changes of the spine. Degenerative changes of the spine. No acute fracture. No dislocation. Soft tissues: Unremarkable. Vasculature: Atherosclerotic changes of the aorta. Atherosclerotic changes of the aorta. No thoracic aortic aneurysm. Lymph nodes: Unremarkable. No enlarged lymph nodes. Spleen: Calcified splenic granulomas. IMPRESSION: No acute findings in the chest. <MYCVCSECTION> Communications: 11/02/23 04:44 Call From [facility] on 11/01 04:40 (-04:00)
[2023-11-02] MEDS: MORPHINE SULFATE 2 MG/ML SYRINGE IM ONE (05:14)
[2023-11-02] MEDS: traMADol 50 MG STARTER PACK 3 TAB BTL PO STA (05:23)
[2023-11-02 05:27] VITALS: BP 161/67
== END 2023-11-02 05:38 | disposition home or self-care (01) ==
LOC: EC 23:50
DX: S22.31XA Fracture of one rib, right side, initial encounter for closed fracture (principal); Z87.891 Personal history of nicotine dependence; Z86.16 Personal history of COVID-19; Z91.048 Other nonmedicinal substance allergy status; W01.10XA Fall on same level from slipping, tripping and stumbling with subsequent striking against unspecified object, initial encounter
CPT/HCPCS: 71250; 99284

== ENCOUNTER → 2024-05-04 | Outpatient (CLI) | payer MEDICARE, BC ==
--- NOTE | 2024-05-04 15:08 | MM ---
Reason for Exam: Screening (asymptomatic). Last mammogram was performed 1 year(s) and 1 month(s) ago. Patient History: Menarche at age 13. First Full-Term at age 27. Postmenopausal. Patient has history of breast feeding. Breast cancer, left, age 59. Other cancer. Previous chemotherapy at age 59. Estrogen, starting at age 57 for 10 years. Hormonal Contraceptives, starting at age 31 for 2 years. Tamoxifen for 5 years from age 61 until age 65. 1999, Mastectomy on the Left side. 1999, Excisional Biopsy on the Left side. TRAM Reconstruction, left. Chemotherapy. 1999, Implant on the left side. Maternal grandmother had breast cancer, age 87. Niece had breast cancer at or over age 50. Prior Study Comparison: 03/30/2021 Right Diagnostic Mammogram, [facility]. 03/31/2022 Right MG 3D diag mammo w/cad RT, [facility]. 04/04/2023 Right MG 3D diag mammo w/cad RT, [facility]. Tissue Density: Right: There are scattered areas of fibroglandular density. Findings: Analyzed By CAD. Right breast: There is no suspicious group of microcalcifications or new suspicious mass. Benign-appearing calcifications right breast. Left breast: There is no suspicious group of microcalcifications or new suspicious mass. Benign-appearing calcifications left breast. Overall Assessment: Benign, BI-RAD 2 Management: Screening Mammogram of both breasts in [address] [facility] will attempt to contact patient to return for supplemental views and ultrasound if indicated. Patient should continue monthly self-breast exams. A clinical breast exam by your physician is recommended on an annual basis. This exam should not preclude additional follow-up of suspicious palpable abnormalities. Note on Rhina scores and lifetime risk: 1. A Rhina score greater than 3% is considered moderate risk. If this is the case, consider specialist referral to assess eligibility for a risk reducing agent. 2. If overall lifetime risk for the development of breast cancer is 20% or higher, the patient may qualify for future screening with alternating mammogram and breast MRI. [facility], , 05/04/2024 2:56 PM. Electronically signed and approved by: Costa Leon DO
== END | disposition home or self-care (01) ==
LOC: RADMAMWWP 14:34
PROVIDERS: ATTEND Internal Medicine
DX: Z12.31 Encounter for screening mammogram for malignant neoplasm of breast (principal); R92.323 Mammographic fibroglandular density, bilateral breasts; Z78.0 Asymptomatic menopausal state; Z80.3 Family history of malignant neoplasm of breast
CPT/HCPCS: 77067